=== PATIENT | female | born 1990 | race Caucasian/White ===

== ENCOUNTER 2019-09-23 12:24 | Emergency (ER) | payer OTHER, SELFPAY ==
[2019-09-23 12:34] VITALS: BP 136/80; PULSE 92; RESP 20; TEMP 36.8; O2SAT 98
--- NOTE | 2019-09-23 12:53 | ED.GENADULT ---
HPI - General Adult General Chief complaint: Upper Respiratory Infection Stated complaint: Sore throat/tongue has white spots Time Seen by Provider: 09/23/19 12:54 Source: patient and RN notes reviewed Mode of arrival: ambulatory Limitations: no limitations History of Present Illness HPI narrative: This is a 29 years old female presents to the office for an evaluation of sore throat for one week. Her children has thrush and her tested positive for strep. No treatment prior to arrival. Related Data Allergies Allergy/AdvReac Type Severity Reaction Status Date / Time Influenza Virus Vaccines Allergy Severe Verified 04/23/19 10:10 pneumococcal vaccine Allergy Unknown Verified 04/23/19 10:10 Review of Systems Review of Systems: Narrative: CONSTITUTIONAL: Denies fever or feeling ill. ENT: Reports sore throat and can't taste CARDIOVASCULAR: Denies chest pain RESPIRATORY: Denies dyspnea, cough GASTROINTESTINAL: Denies abdominal pain, nausea, vomiting, diarrhea. SKIN: Denies rash MUSCULOSKELETAL: Denies acute back pain NEUROLOGIC: Denies lightheaded PMFSH Comments At time of signature, I agree with nursing past medical, surgical, social and family history. There is no relevant family history pertinent to the presenting complaint. Exam Narrative: Exam Narrative: GENERAL: This is a well-nourished, well-developed patient, in no apparent distress. EYES: Sclera clear/white. Vision is grossly intact. EARS: External ears normal, auditory canals clear and without drainage, TMs normal without perforation. Hearing grossly intact. NOSE: External nose normal with no obvious nasal discharge, nares without redness, no rhinorrhea. THROAT: Mucous membranes moist, posterior pharynx clear, tongue noted thrush. NECK: Neck supple, non-tender without lymphadenopathy, masses or thyromegaly. CARDIOVASCULAR: Regular rate and rhythm without murmurs, gallops, or rubs. RESPIRATORY: Clear to auscultation. Breath sounds equal bilaterally. No wheezes, rales, or rhonchi. GASTROINTESTINAL: Abdomen soft, non-tender, nondistended. Bowel sounds are active. No hepato-splenomegaly, or palpable masses. No guarding. SKIN: warm, intact with no suspicious lesions or rash NEURO: awake, alert, and oriented to person, place and time. There were no obvious focal neurologic abnormalities. Steady gait Gin Coma Scale Eye Opening: Spontaneous 4 Gin Coma Scale Motor: Obeys Commands 6 [place] Coma Scale Verbal: Oriented 5 Course Vital Signs Vital signs: Vital Signs Temperature 98.2 F 09/23/19 12:34 Pulse Rate 92 09/23/19 12:34 Respiratory Rate 20 09/23/19 12:34 Blood Pressure 136/80 09/23/19 12:34 Pulse Oximetry 98 09/23/19 12:34 Temperature 98.2 F 09/23/19 12:34 Pulse Rate 92 09/23/19 12:34 Respiratory Rate 20 09/23/19 12:34 Blood Pressure 136/80 09/23/19 12:34 Pulse Oximetry 98 09/23/19 12:34 Medical Decision Making MDM Narrative Medical decision making narrative: Discharge instructions reviewed with patient, as well as provided in writing per nursing staff. The instructions also include specific and strict return/GO TO THE ER as well as f/u information. All questions have been answered, and the patient deny any further questions with discharge and discharge plan. Differential Diagnosis Differential Diagnosis: Upper respiratory cough syndrome, Pharyngitis,viral URI Vital Signs Vital Signs: Vital Signs Temperature 98.2 F 09/23/19 12:34 Pulse Rate 92 09/23/19 12:34 Respiratory Rate 20 09/23/19 12:34 Blood Pressure 136/80 09/23/19 12:34 Pulse Oximetry 98 09/23/19 12:34 Temperature 98.2 F 09/23/19 12:34 Pulse Rate 92 09/23/19 12:34 Respiratory Rate 20 09/23/19 12:34 Blood Pressure 136/80 09/23/19 12:34 Pulse Oximetry 98 09/23/19 12:34 Lab Data Lab results reviewed: Yes I reviewed the patient's lab results. Labs: Strep Screen Presumptive Negati
== END 2019-09-23 13:15 | disposition home or self-care (01) ==
PROVIDERS: Emergency Provider Nurse Practitioner; PCP Family Medicine
DX: B37.0 Candidal stomatitis (principal)
CPT/HCPCS: 87081; 87880; 99213; G0463

== ENCOUNTER 2020-02-26 18:52 | Emergency (ER) | payer OTHER, SELFPAY ==
--- NOTE | 2020-02-26 18:54 | ED.GENADULT ---
HPI - General Adult General Chief complaint: Dental/Oral Stated complaint: abcess tooth Time Seen by Provider: 02/26/20 19:15 Source: patient Mode of arrival: ambulatory Limitations: no limitations History of Present Illness HPI narrative: 22-year-old female patient presents to the [facility] with complaints of left lower dental pain for the past 3 days. Patient states she has had issues with this tooth before and has been told by her dentist that it needs to be removed. Patient is currently and is due in May and states that they are not willing to extract the tooth until after she gives . Patient has been taking Tylenol as well as doing a lidocaine wash for the pain. Patient states that his been painful increasingly and hurts to eat or drink at this time. Related Data Home Medications Medication Instructions Recorded Confirmed levalbuterol tartrate [Xopenex HFA] 2 inh INHALATION Q6H 02/26/20 02/26/20 ondansetron HCl [Zofran] 8 mg PO Q8H PRN 02/26/20 02/26/20 [id number] fum-folic ac-om3 1 pkg PO DAILY 02/26/20 02/26/20 [Daily ] Allergies Allergy/AdvReac Type Severity Reaction Status Date / Time Influenza Virus Vaccines Allergy Severe Confusion Verified 02/26/20 19:22 pneumococcal vaccine Allergy Unknown Confusion Verified 02/26/20 19:22 Review of Systems Review of Systems: Narrative: CONSTITUTIONAL: Denies fever, chills, or sweats. EYES: Denies visual changes, redness, or discharge. ENT: Denies rhinorrhea, congestion, sore throat, or otalgia. Positive left lower dental pain x3 days CARDIOVASCULAR: Denies chest pain, palpitations, or edema. RESPIRATORY: Denies cough or dyspnea. GASTROINTESTINAL: Denies abdominal pain, nausea, vomiting, or diarrhea. GENITOURINARY: Denies dysuria or hematuria. SKIN: Denies rash or itching. MUSCULOSKELETAL: Denies back pain, joint pain, or myalgia. NEUROLOGIC: Denies headache, numbness, or weakness. PSYCHIATRIC: Denies anxiety or depression. [facility] Past Medical History Medical History (Updated 02/26/20 @ 19:28 by KAREL Norton) Migraines Surgical History Surgical History (Updated 02/26/20 @ 19:28 by KAREL Norton) H/O adenoidectomy History of tonsillectomy Comments At the time of my signature I agree with nursing past medical history, surgical, social, and family history. There is no relevant family history pertinent to the presenting complaint. Exam Narrative: Exam Narrative: GENERAL: Well-appearing, well-nourished, and in no acute distress. HEAD: Normocephalic, atraumatic. EYES: PERRLA and EOMI. ENT: Nares clear, no rhinorrhea or epistaxis. Mucous membranes moist. The back molar on the lower left side does have surrounding erythema swelling and does appear to be broken and infected. No active discharge. No obvious abscesses palpated on to the left cheek. Patient tolerating secretions well and able to talk in clear complete sentences. NECK: Supple. No lymphadenopathy CHEST: Clear to auscultation. No respiratory distress. HEART: Regular rate and rhythm. No murmur heard. Normal peripheral pulses. ABDOMEN: Soft, nontender, nondistended, normal active bowel sounds. EXTREMITIES: Normal range of motion. No edema. SKIN: Warm, dry, no rash. NEURO: No focal deficits. Alert and oriented x3. Course Vital Signs Vital signs: Vital Signs Temperature 36.7 C 02/26/20 19:09 Pulse Rate 102 H 02/26/20 19:09 Respiratory Rate 16 02/26/20 19:09 Blood Pressure 119/52 L 02/26/20 19:09 Pulse Oximetry 99 02/26/20 19:09 Temperature 36.7 C 02/26/20 19:09 Pulse Rate 102 H 02/26/20 19:09 Respiratory Rate 16 02/26/20 19:09 Blood Pressure 119/52 L 02/26/20 19:09 Pulse Oximetry 99 02/26/20 19:09 Vital signs reviewed. Medical Decision Making Differential Diagnosis Differential Diagnosis: Differential diagnosis: Dental caries, periodontal disease, avulsed tooth, tooth infections, mandibular infection, Eliecer's ang
[2020-02-26 19:09] VITALS: BP 119/52; PULSE 102; RESP 16; TEMP 36.7; O2SAT 99
== END 2020-02-26 19:31 | disposition home or self-care (01) ==
PROVIDERS: Emergency Provider Nurse Practitioner Family; PCP Family Medicine
DX: K02.9 Dental caries, unspecified (principal); J45.909 Unspecified asthma, uncomplicated
CPT/HCPCS: 99213; G0463

== ENCOUNTER 2020-10-20 13:05 | Emergency (ER) | payer OTHER, SELFPAY ==
[2020-10-20 13:14] VITALS: BP 158/80; PULSE 98; RESP 20; TEMP 36.6; O2SAT 99
--- NOTE | 2020-10-20 13:28 | ED.URI ---
HPI - URI/Sore Throat General Chief Complaint: Upper Respiratory Infection Stated Complaint: cough,sneezing Time Seen by Provider: 10/20/20 13:28 Source: patient Mode of arrival: ambulatory Limitations: no limitations History of Present Illness HPI Narrative: 30-year-old female presents to the [facility] with 1 week of productive cough and congestion. Denies chest pain or shortness of breath. Denies fevers. No nausea vomiting or diarrhea. Has a history of bronchitis and is currently a smoker. Related Data Home Medications Medication Instructions Recorded Confirmed cyclobenzaprine 10 mg PO HS PRN 10/20/20 10/20/20 paroxetine HCl 10 mg PO QAM 10/20/20 10/20/20 Allergies Allergy/AdvReac Type Severity Reaction Status Date / Time Influenza Virus Vaccines Allergy Severe Confusion Verified 10/20/20 13:35 pneumococcal vaccine Allergy Unknown Confusion Verified 10/20/20 13:35 Review of Systems Review of Systems: Narrative: CONSTITUTIONAL: Denies fever, chills, or sweats. EYES: Denies visual changes, redness, or discharge. ENT: Reports rhinorrhea, congestion. Denies sore throat, or otalgia. CARDIOVASCULAR: Denies chest pain, palpitations, or edema. RESPIRATORY: Reports productive cough without dyspnea. GASTROINTESTINAL: Denies abdominal pain, nausea, vomiting, or diarrhea. MUSCULOSKELETAL: Denies back pain, joint pain, or myalgia. NEUROLOGIC: Denies headache, numbness, or weakness. PSYCHIATRIC: Denies anxiety or depression. All other systems reviewed are negative, except as documented in HPI. PMFSH Past Medical History Medical History (Updated 10/21/20 @ 00:01 by Monalisa Kingston) Migraines Surgical History Surgical History (Updated 02/26/20 @ 19:28 by KAREL Norton) H/O adenoidectomy History of tonsillectomy Social History Social History (Updated 10/21/20 @ 08:09 by Almita Coker) Smoking packs per day: 0.5 Smoking cigarettes per day: 10.0 Comments At the time of my signature, I reviewed and agree with the nursing past medical, surgical, social, and family history. There is no relevant family history pertinent to the patient complaint. Exam Narrative: Exam Narrative: GENERAL: This is a well-nourished, well-developed patient, in no apparent distress. Appears mildly ill HEAD: normocephalic, atraumatic. EYES: PERRL. Sclera clear/white. Vision is grossly intact. EARS: External ears normal, auditory canals clear and without drainage, TMs normal without perforation. Hearing grossly intact. NOSE: External nose normal with clear nasal discharge, nares without redness. THROAT: Mucous membranes moist, posterior pharynx clear. Postnasal drip NECK: Neck supple, non-tender without lymphadenopathy, masses or thyromegaly. CARDIOVASCULAR: Regular rate and rhythm without murmurs, gallops, or rubs. RESPIRATORY: Clear but diminished lower lobes to auscultation. Breath sounds equal bilaterally. No wheezes, rales, or rhonchi. GASTROINTESTINAL: Abdomen soft, non-tender, nondistended. Bowel sounds are active. No hepato-splenomegaly, or palpable masses. No guarding. NEURO: awake, alert, and oriented to person, place and time. There were no obvious focal neurologic abnormalities. EXTREMITIES: No joint tenderness, effusion, or edema noted. BACK: Nontender without deformity. Course Vital Signs Vital signs: Vital Signs Temperature 98 F 10/20/20 13:14 Pulse Rate 98 10/20/20 13:14 Respiratory Rate 20 10/20/20 13:14 Blood Pressure 158/80 H 10/20/20 13:14 Pulse Oximetry 99 10/20/20 13:14 Temperature 98 F 10/20/20 13:14 Pulse Rate 98 10/20/20 13:14 Respiratory Rate 20 10/20/20 13:14 Blood Pressure 158/80 H 10/20/20 13:14 Pulse Oximetry 99 10/20/20 13:14 Reviewed, blood pressure elevated, discussed with patient MDM - URI/Sore Throat Differential Diagnosis Differential diagnosis: Likely upper respiratory infection, otitis media, sinusitis, viral infection and bronchitis Critic
== END 2020-10-20 13:58 | disposition home or self-care (01) ==
PROVIDERS: Emergency Provider Nurse Practitioner; PCP Family Medicine
DX: J40 Bronchitis, not specified as acute or chronic (principal); F17.210 Nicotine dependence, cigarettes, uncomplicated
CPT/HCPCS: 99213; G0463

== ENCOUNTER 2021-03-27 16:25 | Emergency (ER) | payer OTHER, SELFPAY ==
--- NOTE | ~2021-03-27 | XR_ITS ---
EXAMINATION: XR chest 2V DATE: 03/27/2021 16:53 INDICATION: Cough and congestion TECHNIQUE: PA and lateral views of the chest are obtained. COMPARISON: None available FINDINGS: The lungs are free of acute opacities. There is no pleural effusion or pneumothorax. The ca rdiomediastinal silhouette is normal. The visualized bones and soft tissues are unremarkable. IMPRESSION: 1. No acute cardiopulmonary abnormality. Reviewed, dictated and finalized at location A.
--- NOTE | 2021-03-27 16:26 | ED.URI ---
HPI - URI/Sore Throat General Chief Complaint: Upper Respiratory Infection Stated Complaint: cough congestion Time Seen by Provider: 03/27/21 16:26 Source: patient and RN notes reviewed History of Present Illness HPI Narrative: Patient is a 31-year-old female who presents the urgent care with complaints of cough and congestion post Covid. Patient states that they have been out of quarantine, quarantine for 14 days, for 2 to 3 days now. Mother states that she has not had any recent fevers, nausea, vomiting or sore throat. States that she has been using multiple nhbw-voi-myumazk medications without any improvements. No other acute complaints. No acute distress noted. Patient aware of the plan of care. Some parts of this dictation were generated by voice recognition software and may contain typographical and/or grammatical inaccuracies. Related Data Home Medications Medication Instructions Recorded Confirmed buspirone See Rx Instructions .ROUTE .COMPLEX 03/27/21 03/27/21 citalopram 40 mg PO DAILY 03/27/21 03/27/21 norgestimate-ethinyl estradiol 28 tablet PO DAILY 03/27/21 03/27/21 [Sprintec (28)] Allergies Allergy/AdvReac Type Severity Reaction Status Date / Time No Known Allergies Allergy Verified 03/27/21 16:48 Review of Systems Review of Systems: CONSTITUTIONAL: Denies fever, chills, or sweats. EYES: Denies visual changes, redness, or discharge. ENT: Denies rhinorrhea, congestion, sore throat, or otalgia. CARDIOVASCULAR: Denies chest pain, palpitations, or edema. RESPIRATORY: Reports of chest congestion and cough GASTROINTESTINAL: Denies abdominal pain, nausea, vomiting, or diarrhea. GENITOURINARY: Denies dysuria or hematuria. SKIN: Denies rash or itching. MUSCULOSKELETAL: Denies back pain, joint pain, or myalgia. NEUROLOGIC: Denies headache, numbness, or weakness. All other systems reviewed are negative, except as documented in HPI. PMFSH Comments At the time of my signature, I reviewed and agree with the nursing past medical, surgical, social, and family history. There is no relevant family history pertinent to the patient complaint. Exam Narrative: GENERAL: This is a well-nourished, well-developed patient, in no apparent distress. HEAD: normocephalic, atraumatic. EYES: PERRL. Sclera clear/white. Vision is grossly intact. EARS: External ears normal, auditory canals clear and without drainage, TMs normal without perforation. Hearing grossly intact. NOSE: External nose normal with no obvious nasal discharge, nares without redness, no rhinorrhea. THROAT: Mucous membranes moist, posterior pharynx clear. Moderate postnasal drainage NECK: Neck supple, non-tender without lymphadenopathy CARDIOVASCULAR: Regular rate and rhythm without murmurs, gallops, or rubs. RESPIRATORY: Clear to auscultation. Diminished bibasilar SKIN: warm, intact with no suspicious lesions or rash, good texture and turgor. NEURO: awake, alert, and oriented to person, place and time. There were no obvious focal neurologic abnormalities. EXTREMITIES: No clubbing, cyanosis, or edema. Course Vital Signs Vital signs: Vital Signs Temperature 97.3 F L 03/27/21 16:34 Pulse Rate 99 03/27/21 16:34 Respiratory Rate 20 03/27/21 16:34 Blood Pressure 144/89 H 03/27/21 16:34 Pulse Oximetry 99 03/27/21 16:34 Temperature 97.3 F L 03/27/21 16:34 Pulse Rate 99 03/27/21 16:34 Respiratory Rate 20 03/27/21 16:34 Blood Pressure 144/89 H 03/27/21 16:34 Pulse Oximetry 99 03/27/21 16:34 Reviewed-patient is informed that they may have pre-hypertension or hypertension based on a blood pressure reading in the department. I recommend the patient call the primary care provider listed on their discharge instructions or a physician of their choice this week to arrange follow-up for further evaluation of possible pre-hypertension or hypertension. MDM - URI/Sore Throat MDM Narrative Medical decision making narrative: Reviewed x-ray re
[2021-03-27 16:34] VITALS: BP 144/89; PULSE 99; RESP 20; TEMP 36.3; O2SAT 99
== END 2021-03-27 17:17 | disposition home or self-care (01) ==
PROVIDERS: Emergency Provider Nurse Practitioner Family; PCP Family Medicine
DX: R05 Cough (principal)
CPT/HCPCS: 71046; 99213; G0463

== ENCOUNTER 2021-05-11 10:41 | Emergency (ER) | payer OTHER, SELFPAY ==
[2021-05-11 10:53] VITALS: BP 154/93; PULSE 83; RESP 16; TEMP 37.4; O2SAT 99
--- NOTE | 2021-05-11 11:18 | ED.URI ---
HPI - URI/Sore Throat General Chief Complaint: Upper Respiratory Infection Stated Complaint: lt ear pain,laura,cough Source: patient and RN notes reviewed Mode of arrival: ambulatory Limitations: no limitations History of Present Illness HPI Narrative: Sapphire is a 31-year-old female patient who ambulated into the [facility] accompanied by her [id number] and 2-year-old. Mother states for the last week she has had nasal congestion with clear drainage, occasional fever, feeling bad and increased use of her albuterol inhaler. Mother states her and 3 out of the 4 children had Covid at the beginning of April. Mother states she is been using Mucinex at home with no relief. Related Data Home Medications Medication Instructions Recorded Confirmed albuterol sulfate 2 inh INHALATION Q4-6M PRN 05/11/21 05/11/21 buspirone 15 mg PO TID 05/11/21 05/11/21 citalopram 40 mg PO DAILY 05/11/21 05/11/21 norgestimate-ethinyl estradiol 1 tablet PO DAILY 05/11/21 05/11/21 [Sprintec (28)] Allergies Allergy/AdvReac Type Severity Reaction Status Date / Time Influenza Virus Vaccines AdvReac Severe Confusion Verified 05/11/21 11:06 pneumococcal vaccine AdvReac Unknown Confusion Verified 05/11/21 11:06 Review of Systems Review of Systems: GENERAL: Denies fever, chills, or decreased activity. EYES: Denies any eye discharge or redness. ENT: Denies sore throat, ear pain, +congestion, + rhinorrhea. RESP: Denies any cough, wheezing, or difficulty breathing. CARDIOVASCULAR: Denies any rapid heart rate or cool extremities. ABDOMINAL: Denies any constipation, vomiting, diarrhea, or decreased food intake. : Denies any hematuria, foul smelling urine, or decreased urine frequency. SKIN: Denies any lesions, rashes, bruises. MUSCULOSKELETAL: Denies any pain or swelling. NEURO: Denies any lethargy, irritability, or seizures. PSYCH: Denies abnormal interaction with family and friends. All systems reviewed & are unremarkable except as noted in HPI and below PMFSH Past Medical History Medical History Migraines Surgical History Surgical History H/O adenoidectomy History of tonsillectomy Social History Social History Smoking packs per day: 0.5 Smoking cigarettes per day: 10.0 Exam Narrative: GENERAL: Well nourished, well developed, no acute distress. Well appearing, non-toxic. EYES: PERRL, EOMs normal, conjunctivae normal. ENT: Head normocephalic and atraumatic. Nasal membranes erythematous with clear nasal drainage. Bilateral tympanic membranes are bulging and dull without erythema. Posterior pharynx is erythemic with minimal edema and no exudate. Neck supple. No lymphadenopathy. Full ROM of neck. Mucous membranes moist. RESP: No sign of respiratory distress. Clear to auscultation bilaterally. MUSC/SKEL: Good strength, good range of movement. Moves all extremities equally. NEURO: Alert. Good coordination. SKIN: Warm, dry, no rash, normal cap refill. Skin turgor normal. PSYCH: Affect and mood appropriate. Course Vital Signs Vital signs: Vital Signs Temperature 37.4 C 05/11/21 10:53 Pulse Rate 83 05/11/21 10:53 Respiratory Rate 16 05/11/21 10:53 Blood Pressure 154/93 H 05/11/21 10:53 Pulse Oximetry 99 05/11/21 10:53 Temperature 37.4 C 05/11/21 10:53 Pulse Rate 83 05/11/21 10:53 Respiratory Rate 16 05/11/21 10:53 Blood Pressure 154/93 H 05/11/21 10:53 Pulse Oximetry 99 05/11/21 10:53 Reviewed. Pt has been instructed to follow up with her PCP regarding her elevated blood pressure today. MDM - URI/Sore Throat MDM Narrative Medical decision making narrative: Mother has clear nasal discharge erythematous nasal membranes and bulging TMs. Patient was instructed to use Claritin and Flonase daily. Patient was also given prednisone du
== END 2021-05-11 11:25 | disposition home or self-care (01) ==
PROVIDERS: Emergency Provider Nurse Practitioner Family; PCP Family Medicine
DX: J06.9 Acute upper respiratory infection, unspecified (principal); F17.210 Nicotine dependence, cigarettes, uncomplicated
CPT/HCPCS: 99213; G0463

== ENCOUNTER 2021-09-05 18:04 | Emergency (ER) | payer OTHER, SELFPAY ==
[2021-09-05 18:09] VITALS: BP 148/84; PULSE 102; RESP 20; TEMP 36.7; O2SAT 97
--- NOTE | 2021-09-05 18:51 | ED.URI ---
HPI - URI/Sore Throat General Chief Complaint: Upper Respiratory Infection Stated Complaint: Cough/Congestion Time Seen by Provider: 09/05/21 18:51 Source: patient and RN notes reviewed Mode of arrival: ambulatory Limitations: no limitations History of Present Illness HPI Narrative: 31-year-old female presented for complaint of shortness of breath, cough, and wheezing for about 9 days. Endorses history of asthma. She has been using her albuterol inhaler more often than normal. The shortness of breath and wheezing are associated with coughing and increased activity. She denies nausea, vomiting, diarrhea, fever or chills. She has been taking diet DayQuil, NyQuil, TheraFlu and alvy-tie-uavgroh medications with no relief in symptoms. smokes / ppd. covid 03/2021. elicited complaint: cough Related Data Home Medications Medication Instructions Recorded Confirmed buspirone See Rx Instructions .ROUTE .COMPLEX 03/27/21 09/05/21 citalopram 40 mg PO DAILY 03/27/21 09/05/21 norgestimate-ethinyl estradiol 28 tablet PO DAILY 03/27/21 09/05/21 [Sprintec (28)] Allergies Allergy/AdvReac Type Severity Reaction Status Date / Time influenza virus vaccine qs Allergy Fever Verified 09/05/21 18:29 [id number] (65 years up) [From Fluad Camera360 2020-(65y up)(PF)] lavender (Lavandula Allergy Hives Verified 09/05/21 18:29 angustifolia) vaccine adjuvant emulsion Allergy Fever Verified 09/05/21 18:29 [id number] [From Fluad Quad 2020-(65y up)(PF)] Review of Systems Review of Systems: CONSTITUTIONAL: Denies malaise, chills, sweats, fever EYES: Denies visual changes, redness, or discharge ENT: Reports rhinorrhea, congestion, sinus pain, otalgia, sore throat CARDIOVASCULAR: Denies chest pain, palpitations, edema RESPIRATORY: Reports cough, post nasal drainage, dyspnea GASTROINTESTINAL: Denies abdominal pain, nausea, vomiting, diarrhea SKIN: Denies rash or itching MUSCULOSKELETAL: Endorses myalgia NEUROLOGIC: Denies headache Exam Narrative: GENERAL: Ill-appearing, nontoxic no acute distress. HEAD: Normocephalic EYES: PERRLA, conjunctivae clear ENT: Mucous membranes moist. TM pearly lowe with dull light reflex bilaterally; no tragal tenderness. Oropharynx erythematous without lesions or exudate, no drooling, no hoarseness, no trismus, uvula midline. NECK: Supple. No lymphadenopathy CHEST: Lungs diminished with exp wheezing, No respiratory distress, speaks in full sentences. HEART: Regular rate and rhythm. No murmur heard. SKIN: Warm, dry, no rash. NEURO: Alert and oriented x3. PSYCH: Normal mood and affect Course Course Emergency Course: Patient is aware of diagnosis, understands and agrees to treatment plan. Anticipatory guidance given. Patient agrees to follow-up as directed and is aware of reasons to seek care at the emergency department. Portions of this record may have been created with voice recognition software Level of Care: [facility] Visit Vital Signs Vital signs: Vital Signs Temperature 98.1 F 09/05/21 18:09 Pulse Rate 102 H 09/05/21 18:09 Respiratory Rate 20 09/05/21 18:09 Blood Pressure 148/84 H 09/05/21 18:09 Pulse Oximetry 97 09/05/21 18:09 Temperature 98.1 F 09/05/21 18:09 Pulse Rate 102 H 09/05/21 18:09 Respiratory Rate 20 09/05/21 18:09 Blood Pressure 148/84 H 09/05/21 18:09 Pulse Oximetry 97 09/05/21 18:09 reviewed MDM - URI/Sore Throat Differential Diagnosis Differential diagnosis: Likely upper respiratory infection, sinusitis, viral infection, bronchitis and other (asthma exacerbation, pneumonia) Discharge Plan Discharge Clinical Impression: Asthma exacerbation Qualifiers: Asthma severity: unspecified severity Asthma persistence: unspecified Qualified Code(s): J45.901 - Unspecified asthma with (acute) exacerbation Patient Disposition: Home, Self-Care Condition: Stable Instructions: Antibiotic Form, Asthma (ED), Bronchospas
== END 2021-09-05 19:53 | disposition home or self-care (01) ==
PROVIDERS: Emergency Provider Nurse Practitioner Family
DX: J45.901 Unspecified asthma with (acute) exacerbation (principal); F17.200 Nicotine dependence, unspecified, uncomplicated; Z86.16 Personal history of COVID-19
CPT/HCPCS: 99213; G0463

== ENCOUNTER 2021-10-11 10:43 | Emergency (ER) | payer OTHER, SELFPAY ==
--- NOTE | 2021-10-11 10:45 | ED.URI ---
HPI - URI/Sore Throat General Chief Complaint: Upper Respiratory Infection Stated Complaint: congestion cough Time Seen by Provider: 10/11/21 10:45 Source: patient and RN notes reviewed History of Present Illness HPI Narrative: Patient is a 31-year-old female who presents to the urgent care with her 4 children with complaints of sinus pressure, sinus headache, nasal congestion and cough. Patient states she has been taking Mucinex and Tylenol. Denies of any fevers. Denies any wheezing or shortness of breath. Patient states that she does typically have a cough and patient has been smoking for the last 10 years. However, this cough has been more persistent and worsened. No other acute complaints. No acute distress noted. Patient aware of the plan of care. Some parts of this dictation were generated by voice recognition software and may contain typographical and/or grammatical inaccuracies. Related Data Home Medications Medication Instructions Recorded Confirmed buspirone 15 mg PO TID 05/11/21 10/11/21 citalopram 40 mg PO DAILY 05/11/21 10/11/21 norgestimate-ethinyl estradiol 1 tablet PO DAILY 10/11/21 10/11/21 [Zo] Allergies Allergy/AdvReac Type Severity Reaction Status Date / Time Influenza Virus Vaccines AdvReac Severe Confusion Verified 10/11/21 11:25 pneumococcal vaccine AdvReac Unknown Confusion Verified 10/11/21 11:25 Review of Systems Review of Systems: CONSTITUTIONAL: Denies fever, chills, or sweats. EYES: Denies visual changes, redness, or discharge. ENT: Reports of nasal congestion and postnasal drainage with sinus pressure CARDIOVASCULAR: Denies chest pain, palpitations, or edema. RESPIRATORY: Reports of cough without dyspnea or wheezing GASTROINTESTINAL: Denies abdominal pain, nausea, vomiting, or diarrhea. GENITOURINARY: Denies dysuria or hematuria. SKIN: Denies rash or itching. MUSCULOSKELETAL: Denies back pain, joint pain, or myalgia. NEUROLOGIC: Reports headaches All other systems reviewed are negative, except as documented in HPI. [facility] Past Medical History Medical History Migraines Surgical History Surgical History H/O adenoidectomy History of tonsillectomy Social History Social History Smoking packs per day: 0.5 Smoking cigarettes per day: 10.0 Comments At the time of my signature, I reviewed and agree with the nursing past medical, surgical, social, and family history. There is no relevant family history pertinent to the patient complaint. Exam Narrative: GENERAL: This is a well-nourished, well-developed patient, in no apparent distress. HEAD: normocephalic, atraumatic. EYES: PERRL. Sclera clear/white. Vision is grossly intact. EARS: External ears normal, auditory canals clear and without drainage, TMs normal without perforation. Hearing grossly intact. NOSE: External nose normal with no obvious nasal discharge, nares without redness, clear rhinorrhea. THROAT: Mucous membranes moist, mild erythema noted posterior oropharynx with moderate postnasal drainage NECK: Neck supple CARDIOVASCULAR: Regular rate and rhythm without murmurs, gallops, or rubs. RESPIRATORY: Crackles throughout. Breath sounds equal bilaterally. No wheezes, rales, or rhonchi. Notable dry cough on exam SKIN: warm, intact with no suspicious lesions or rash, good texture and turgor. NEURO: awake, alert, and oriented to person, place and time. There were no obvious focal neurologic abnormalities. EXTREMITIES: No clubbing, cyanosis, or edema. Course Course Level of Care: Express Care Visit Vital Signs Vital signs: Vital Signs Temperature 98 F 10/11/21 10:57 Pulse Rate 108 H 10/11/21 10:57 Respiratory Rate 16 10/11/21 10:57 Blood Pressure 143/84 H 10/11/21 10:57 Pulse Oximetry 98 10/11/21 10:57 Temperature 98 F 10/11/21 10:57
[2021-10-11 10:57] VITALS: BP 143/84; PULSE 108; RESP 16; TEMP 36.6; O2SAT 98
== END 2021-10-11 11:45 | disposition home or self-care (01) ==
PROVIDERS: Emergency Provider Nurse Practitioner Family; PCP Family Medicine
DX: J40 Bronchitis, not specified as acute or chronic (principal); Z20.828 Contact with and (suspected) exposure to other viral communicable diseases; F17.210 Nicotine dependence, cigarettes, uncomplicated
CPT/HCPCS: 99213; G0463

== ENCOUNTER 2022-02-10 13:26 | Outpatient (CLI) | payer OTHER, SELFPAY | END 2022-02-10 13:27 | disposition home or self-care (01) | LOC: ANHBWCAUD 13:26 | PROVIDERS: PCP Family Medicine | DX: H91.92 Unspecified hearing loss, left ear (principal) | CPT/HCPCS: 92557; 92567 ==

== ENCOUNTER 2022-10-11 12:24 | Emergency (ER) | payer OTHER, SELFPAY ==
[2022-10-11 12:44] VITALS: BP 149/86; PULSE 80; RESP 20; TEMP 36.1; O2SAT 100
--- NOTE | 2022-10-11 13:16 | ED.GENADULT ---
HPI - General Adult General Chief complaint: Upper Respiratory Infection Stated complaint: Congestion/Cough Source: patient Mode of arrival: ambulatory Limitations: no limitations History of Present Illness HPI narrative: PATIENT PRESENTS FOR EVALUATION OF SICK SYMPTOMS FOR LAST 4 WEEKS. SYMPTOMS INCLUDE MUFFLED HEARING, POSTNASAL DRAINAGE, MILD SORE THROAT AND NASAL CONGESTION. NO FEVER, CHILLS, NAUSEA, VOMITING, DIARRHEA. SHE HAS 4 CHILDREN HERE BEING EVALUATED FOR SIMILAR SYMPTOMS. SHE TRIED TYLENOL SINUS MEDICATION AND A NASAL SPRAY FOR HER SYMPTOMS. NO ADDITIONAL COMPLAINTS OR CONCERNS. Related Data Home Medications Medication Instructions Recorded Confirmed citalopram 40 mg tablet 40 mg PO DAILY 03/27/21 10/11/22 buspirone 15 mg tablet 15 mg PO TID 05/11/21 10/11/22 norgestimate 0.25 mg-ethinyl 1 tablet PO DAILY 10/11/21 10/11/22 estradiol 35 mcg tablet (Zo) Allergies Allergy/AdvReac Type Severity Reaction Status Date / Time influenza virus vaccine qs Allergy Fever Verified 10/11/22 12:27 [id number] (65 years up) [From Fluad M[employer] technologies (65y up)(PF)] lavender (Lavandula Allergy Hives Verified 10/11/22 12:27 angustifolia) vaccine adjuvant emulsion Allergy Fever Verified 10/11/22 12:27 MF59C.1 [From Fluad [employer] (65y up)(PF)] Influenza Virus Vaccines AdvReac Severe Confusion Verified 10/11/22 12:27 pneumococcal vaccine AdvReac Unknown Confusion Verified 10/11/22 12:27 Review of Systems Review of Systems: CONSTITUTIONAL: DENIES FEVER, CHILLS, OR SWEATS. EYES: DENIES VISUAL CHANGES, REDNESS, OR DISCHARGE. ENT: REPORTS NASAL CONGESTION, POSTNASAL DRAINAGE, MUFFLED HEARING AND MILD SORE THROAT. CARDIOVASCULAR: DENIES CHEST PAIN, PALPITATIONS, OR EDEMA. RESPIRATORY: DENIES COUGH OR DYSPNEA. GASTROINTESTINAL: DENIES ABDOMINAL PAIN, NAUSEA, VOMITING, OR DIARRHEA. GENITOURINARY: DENIES DYSURIA OR HEMATURIA. SKIN: DENIES RASH OR ITCHING. MUSCULOSKELETAL: DENIES BACK PAIN, JOINT PAIN, OR MYALGIA. NEUROLOGIC: DENIES HEADACHE, NUMBNESS, DIZZINESS, OR WEAKNESS. PSYCHIATRIC: DENIES ANXIETY OR DEPRESSION. REPLACED BY [facility] Past Medical History Medical History Anxiety Migraines Surgical History Surgical History (Updated 10/11/22 @ 13:18 by Jonn Gomes [facility], ) H/O adenoidectomy History of History of tonsillectomy Family History Family History Mother Family history non-contributory Social History Social History Smoking packs per day: 0.5 Smoking cigarettes per day: 10.0 Substance use: never Living arrangements: with family Gender identity (if verbalized by the patient): Female Sexual Orientation (if Verbalized by the Patient): Straight or Heterosexual Spiritual care concerns: No Exam Narrative: GENERAL: WELL-APPEARING, WELL-NOURISHED, AND IN NO ACUTE DISTRESS. HEAD: NORMOCEPHALIC, ATRAUMATIC. EYES: PERRLA AND EOMI. ENT: NARES CLEAR, NO RHINORRHEA OR EPISTAXIS. MUCOUS MEMBRANES MOIST. OROPHARYNX WITHOUT TONSILLAR HYPERTROPHY EXUDATE OR OTHER LESIONS. BILATERAL TMS PEARLY LANE NONBULGING NECK: SUPPLE. NO ADENOPATHY OR MASSES. NO CAROTID BRUITS OR JVD CHEST: CLEAR TO AUSCULTATION. NO RESPIRATORY DISTRESS. NO WHEEZES RALES OR RHONCHI HEART: REGULAR RATE AND RHYTHM. NO MURMUR HEARD. NORMAL PERIPHERAL PULSES. ABDOMEN: SOFT, NONTENDER, NONDISTENDED, NORMAL ACTIVE BOWEL SOUNDS. EXTREMITIES: NORMAL RANGE OF MOTION. NO EDEMA. SKIN: WARM, DRY, NO RASH. NEURO: NO FOCAL DEFICITS. ALERT AND ORIENTED X3. PSYCH: NORMAL MOOD AND AFFECT. Course Course Emergency Course: THIS IS A 32-YEAR-OLD FEMALE WHO PRESENTED FOR EVALUATION OF SICK SYMPTOMS. RAPID STREP POSITIVE. WILL TREAT WITH PENICILLIN. INCREASE HYDRATION. [id number] AGENTS FOR SYMPTOM MANAGEMENT. FOLLOW
== END 2022-10-11 13:20 | disposition home or self-care (01) ==
PROVIDERS: Emergency Provider Nurse Practitioner
DX: J02.0 Streptococcal pharyngitis (principal); F17.219 Nicotine dependence, cigarettes, with unspecified nicotine-induced disorders; F41.9 Anxiety disorder, unspecified
CPT/HCPCS: 87880; 99213; G0463

== ENCOUNTER 2023-03-07 15:02 | Emergency (ER) | payer OTHER, SELFPAY ==
[2023-03-07 15:08] VITALS: BP 143/82; PULSE 84; RESP 20; TEMP 36.7; O2SAT 100
--- NOTE | 2023-03-07 16:00 | ED.GENADULT ---
HPI - General Adult General Chief complaint: Upper Respiratory Infection Stated complaint: cough/drainage/eyes Source: patient Mode of arrival: ambulatory Limitations: no limitations History of Present Illness HPI narrative: Patient presents for evaluation of sick symptoms for last 2 weeks. Symptoms include cough, hoarse voice, sinus congestion and drainage. No fever, chills, nausea, vomiting, shortness of breath or sore throat per se. She tried taking Tylenol Sinus for her symptoms. She smokes 1 pack per day. She has an underlying history of asthma but has not required an increase of using her albuterol inhaler. Surgical history positive for tonsillectomy and adenoidectomy. Her 4 children are being seen here for similar symptoms. Related Data Home Medications Medication Instructions Recorded Confirmed citalopram 40 mg tablet 40 mg PO DAILY 03/27/21 10/11/22 buspirone 15 mg tablet 15 mg PO TID 05/11/21 10/11/22 norgestimate 0.25 mg-ethinyl 1 tablet PO DAILY 10/11/21 10/11/22 estradiol 35 mcg tablet (Zo) bupropion HCl 150 mg 24 hr tablet, mg PO 03/07/23 extended release norgestimate 0.25 mg-ethinyl tablet 03/07/23 estradiol 35 mcg tablet (Zo) trazodone 50 mg tablet mg 03/07/23 Allergies Allergy/AdvReac Type Severity Reaction Status Date / Time influenza virus vaccine qs Allergy Fever Verified 10/11/22 12:27 [id number] (65 years up) [From Fluad Quad 2020-(65y up)(PF)] lavender (Lavandula Allergy Hives Verified 10/11/22 12:27 angustifolia) vaccine adjuvant emulsion Allergy Fever Verified 10/11/22 12:27 MF59C.1 [From Fluad Quad 2020-(65y up)(PF)] Influenza Virus Vaccines AdvReac Severe Confusion Verified 10/11/22 12:27 pneumococcal vaccine AdvReac Unknown Confusion Verified 10/11/22 12:27 Review of Systems Review of Systems: CONSTITUTIONAL: Denies fever, chills, or sweats. EYES: Denies visual changes, redness, or discharge. ENT: Reports hoarse voice, sinus congestion/drainage. Denies sore throat and otalgia CARDIOVASCULAR: Denies chest pain, palpitations, or edema. RESPIRATORY: Reports cough. Denies wheezing or SOB GASTROINTESTINAL: Denies abdominal pain, nausea, vomiting, or diarrhea. GENITOURINARY: Denies dysuria or hematuria. SKIN: Denies rash or itching. MUSCULOSKELETAL: Denies back pain, joint pain, or myalgia. NEUROLOGIC: Denies headache, numbness, dizziness, or weakness. PSYCHIATRIC: Denies anxiety or depression. [facility] Past Medical History Medical History Anxiety Migraines Surgical History Surgical History H/O adenoidectomy History of History of tonsillectomy Family History Family History Mother Family history non-contributory Social History Social History Smoking packs per day: 1 Smoking cigarettes per day: 20.0 Smoking status: Current some day smoker Substance use: never Living arrangements: with family Gender identity (if verbalized by the patient): Female Sexual Orientation (if Verbalized by the Patient): Straight or Heterosexual Spiritual care concerns: No Exam Narrative: GENERAL: Well-appearing, well-nourished, and in no acute distress. HEAD: Normocephalic, atraumatic. EYES: PERRLA and EOMI. ENT: Nares clear, no rhinorrhea or epistaxis. Mucous membranes moist. Oropharynx without tonsillar hypertrophy exudate or other lesions. Bilateral TMs pearly lowe nonbulging NECK: Supple. No adenopathy or masses. No carotid bruits or JVD CHEST: Clear to auscultation. No respiratory distress. No wheezes rales or rhonchi HEART: Regular rate and rhythm. No murmur heard. Normal peripheral pulses. ABDOMEN: Soft, nontender, nondistended, normal active bowel sounds. EXTR
== END 2023-03-07 16:21 | disposition home or self-care (01) ==
PROVIDERS: Emergency Provider Nurse Practitioner
DX: B34.9 Viral infection, unspecified (principal); J45.909 Unspecified asthma, uncomplicated; F17.210 Nicotine dependence, cigarettes, uncomplicated; F41.9 Anxiety disorder, unspecified
CPT/HCPCS: 99211; G0463

== ENCOUNTER 2023-04-05 11:01 | Emergency (ER) | payer OTHER, SELFPAY ==
--- NOTE | 2023-04-05 11:04 | ED.URI ---
HPI - URI/Sore Throat General Chief Complaint: Upper Respiratory Infection Stated Complaint: cough/throat/nausea Time Seen by Provider: 04/05/23 11:04 Source: patient, RN notes reviewed and old records reviewed Mode of arrival: ambulatory Limitations: no limitations History of Present Illness HPI Narrative: 33-year-old female presents with 3 of her children with complaints of a cough for 3 weeks, sore throat, nausea, sinus congestion and decreased hearing. Has taken Tylenol Sinus, DayQuil, NyQuil, sinus spray. Patient smokes half a pack a day Related Data Home Medications Medication Instructions Recorded Confirmed citalopram 40 mg tablet 40 mg PO DAILY 03/27/21 10/11/22 buspirone 15 mg tablet 15 mg PO TID 05/11/21 10/11/22 norgestimate 0.25 mg-ethinyl 1 tablet PO DAILY 10/11/21 10/11/22 estradiol 35 mcg tablet (Zo) bupropion HCl 150 mg 24 hr tablet, mg PO 03/07/23 extended release norgestimate 0.25 mg-ethinyl tablet 03/07/23 estradiol 35 mcg tablet (Zo) trazodone 50 mg tablet mg 03/07/23 Allergies Allergy/AdvReac Type Severity Reaction Status Date / Time influenza virus vaccine qs Allergy Fever Verified 10/11/22 12:27 [id number] (65 years up) [From Fluad Quad 2020-(65y up)(PF)] lavender (Lavandula Allergy Hives Verified 10/11/22 12:27 angustifolia) vaccine adjuvant emulsion Allergy Fever Verified 10/11/22 12:27 MF59C.1 [From Fluad Quad (65y up)(PF)] Influenza Virus Vaccines AdvReac Severe Confusion Verified 10/11/22 12:27 pneumococcal vaccine AdvReac Unknown Confusion Verified 10/11/22 12:27 Review of Systems Review of Systems: All systems reviewed & are unremarkable except as noted in HPI and below Constitutional: Constitutional: Reports no additional constitutional complaints Eyes: Eyes: Reports no additional eye complaints ENT: Reports as per HPI Cardiovascular: Cardiovascular: Reports no additional cardiovascular complaints, Denies chest pain and Denies dyspnea Respiratory: Respiratory: Reports as per HPI, Reports chest congestion, Reports cough and Denies dyspnea Gastrointestinal: Gastrointestinal: Reports no additional gastrointestinal complaints, Denies abdominal pain, Denies nausea and Denies vomiting Musculoskeletal: Musculoskeletal: Reports no additional musculoskeletal complaints Integumentary/Breasts: Skin/Breast: Reports system reviewed and no additional complaints, except as docu Neurologic: Reports system reviewed and no additional complaints, except as documented Psychiatric: Psychiatric: Reports no additional psychiatric complaints Allergic/Immunologic: Allergic/Immunologic: Reports no additional allergic/immunologic complaints PMFSH Past Medical History Medical History Anxiety Migraines Surgical History Surgical History H/O adenoidectomy History of History of tonsillectomy Family History Family History Mother Family history non-contributory Social History Social History Smoking packs per day: 1 Smoking cigarettes per day: 20.0 Smoking status: Current some day smoker Substance use: never Living arrangements: with family Gender identity (if verbalized by the patient): Female Sexual Orientation (if Verbalized by the Patient): Straight or Heterosexual Spiritual care concerns: No Comments At the time of my signature, I reviewed and agree with the nursing past medical, surgical, social, and family history. There is no relevant family history pertinent to the patient complaint. Exam Const: General: cooperative, healthy appearing, comfortable, no acute distress, well developed, alert and well nourished Nutritional Appearance: well nourished and obese Orientation/consciousness:
[2023-04-05 11:10] VITALS: BP 132/87; PULSE 116; RESP 20; TEMP 37; O2SAT 100
== END 2023-04-05 12:29 | disposition home or self-care (01) ==
PROVIDERS: Emergency Provider Nurse Practitioner; PCP Physician Assistant
DX: J06.9 Acute upper respiratory infection, unspecified (principal); J40 Bronchitis, not specified as acute or chronic; F17.210 Nicotine dependence, cigarettes, uncomplicated
CPT/HCPCS: 99213; G0463

== ENCOUNTER 2023-10-04 09:00 | Emergency (ER) | payer OTHER, SELFPAY ==
--- NOTE | 2023-10-04 09:15 | ED.URI ---
HPI - URI/Sore Throat General Chief Complaint: Upper Respiratory Infection Stated Complaint: Congestion/Headache/Rash Time Seen by Provider: 10/04/23 09:19 Source: patient and RN notes reviewed Mode of arrival: ambulatory Limitations: no limitations History of Present Illness HPI Narrative: 33 y/o female presented for 2 complaints. Reports nasal congestion and rash. Reports forehead pressure. Taking cetirizine without any relief. Reports itching red rash to groin and between buttocks for several months. States it bleeds and skin flakes. Had taken medication from pcp for the rash, it improved briefly but has returned and is worse per pt. Pt reports heart attack 07/2023, maker, not taking plavix at this time. smokes pd MD elicited complaint: cough Related Data Home Medications Medication Instructions Recorded Confirmed aspirin 81 mg chewable tablet 81 mg PO DAILY 10/04/23 10/04/23 atorvastatin 40 mg tablet 40 mg PO HS 10/04/23 10/04/23 metoprolol succinate 25 mg mg PO 10/04/23 tablet,extended release 24 hr Allergies Allergy/AdvReac Type Severity Reaction Status Date / Time influenza virus vaccine qs Allergy Fever Verified 10/11/22 12:27 [id number] (65 years up) [From Fluad Quad 2020-(65y up)(PF)] lavender (Lavandula Allergy Hives Verified 10/11/22 12:27 angustifolia) vaccine adjuvant emulsion Allergy Fever Verified 10/11/22 12:27 MF59C.1 [From Fluad Quad 2020-(65y up)(PF)] Influenza Virus Vaccines AdvReac Severe Confusion Verified 10/11/22 12:27 pneumococcal vaccine AdvReac Unknown Confusion Verified 10/11/22 12:27 Review of Systems Review of Systems: CONSTITUTIONAL: Denies malaise, chills, sweats, fever EYES: Denies visual changes, redness, or discharge ENT: Reports rhinorrhea, congestion, sinus pain, denies otalgia, sore throat CARDIOVASCULAR: Denies chest pain, palpitations, edema RESPIRATORY: Reports post nasal drainage. Denies dyspnea GASTROINTESTINAL: Denies abdominal pain, nausea, vomiting, diarrhea SKIN: reports rash, itching MUSCULOSKELETAL: Denies myalgia NEUROLOGIC: Reports headache PMFSH Past Medical History Medical History (Updated 10/04/23 @ 10:04 by Shari Maradiaga APRN) Anxiety Migraines Myocardial infarction Surgical History Surgical History H/O adenoidectomy History of History of tonsillectomy Family History Family History Mother Family history non-contributory Social History Social History Smoking packs per day: 1 Smoking cigarettes per day: 20.0 Smoking status: Current some day smoker Substance use: never Living arrangements: with family Gender identity (if verbalized by the patient): Female Sexual Orientation (if Verbalized by the Patient): Straight or Heterosexual Spiritual care concerns: No Exam Narrative: GENERAL: well-appearing EYES: PERRLA, conjunctivae clear ENT: Mucous membranes moist. TM pearly lowe with dull light reflex bilaterally; no tragal tenderness. Oropharynx not erythematous without lesions or exudate, no drooling, no hoarseness, no trismus, uvula midline. No tripod positioning, muffled voice, soft palate or pharyngeal wall bulging NECK: Supple. No lymphadenopathy CHEST: Clear to auscultation, breath sounds equal. No wheezing, rhonchi, rales, or stridor. No respiratory distress, speaks in full sentences. HEART: Regular rate and rhythm. No murmur heard. SKIN: Warm, dry Bilateral groin with mild erythematous linear rash c/w fungal; dry cracked skin, no active drainage. Approx 6cm length. NEURO: Alert and oriented x3. PSYCH: Normal mood and affect Course Course Emergency Course: Patient is aware of diagnosis, understands and agrees to treatment plan. Anticipatory guidance given. Patient agrees to fol
[2023-10-04 09:17] VITALS: BP 131/74; PULSE 73; RESP 16; TEMP 36.8; O2SAT 99
== END 2023-10-04 09:50 | disposition home or self-care (01) ==
PROVIDERS: Emergency Provider Nurse Practitioner Family
DX: J32.9 Chronic sinusitis, unspecified (principal); B37.2 Candidiasis of skin and nail; F17.210 Nicotine dependence, cigarettes, uncomplicated; I25.2 Old myocardial infarction; Z79.82 Long term (current) use of aspirin
CPT/HCPCS: 99213; G0463

== ENCOUNTER 2024-02-28 16:36 | Emergency (ER) | payer OTHER, SELFPAY ==
[2024-02-28 16:44] VITALS: BP 114/72; PULSE 87; RESP 20; TEMP 36.8; O2SAT 100
--- NOTE | 2024-02-28 17:10 | ED.URI ---
HPI - URI/Sore Throat General Chief Complaint: Upper Respiratory Infection Stated Complaint: Congestion/Headache Time Seen by Provider: 02/28/24 17:00 Source: patient Mode of arrival: ambulatory Limitations: no limitations History of Present Illness HPI Narrative: 34-year-old female presents with complaint of nasal congestion, sinus pressure, postnasal drainage for 3 weeks. Has been taking [id number] Tylenol cold and sinus with no relief of symptoms. Afebrile. All systems reviewed and negative except as noted above. Related Data Home Medications Medication Instructions Recorded Confirmed aspirin 81 mg chewable tablet 81 mg PO DAILY 10/04/23 02/28/24 atorvastatin 40 mg tablet 40 mg PO HS 10/04/23 02/28/24 metoprolol succinate 25 mg 25 mg PO DAILY 10/04/23 02/28/24 tablet,extended release 24 hr albuterol sulfate 90 mcg/actuation inhalation 02/28/24 02/28/24 aerosol inhaler clopidogrel 75 mg tablet 75 mg PO DAILY 02/28/24 02/28/24 rosuvastatin 20 mg tablet 20 mg PO DAILY 02/28/24 02/28/24 Allergies Allergy/AdvReac Type Severity Reaction Status Date / Time influenza virus vaccine qs Allergy Fever Verified 02/28/24 17:06 [id number] (65 years up) [From Fluad Quad 2020-(65y up)(PF)] lavender (Lavandula Allergy Hives Verified 02/28/24 17:06 angustifolia) vaccine adjuvant emulsion Allergy Fever Verified 02/28/24 17:06 MF59C.1 [From Fluad Quad 2020-(65y up)(PF)] Influenza Virus Vaccines AdvReac Severe Confusion Verified 02/28/24 17:06 pneumococcal vaccine AdvReac Unknown Confusion Verified 02/28/24 17:06 Review of Systems Review of Systems: CONSTITUTIONAL: Denies fever, chills, or sweats. EYES: Denies visual changes, redness, or discharge. ENT: Reports rhinorrhea, congestion, sinus pressure. Denies sore throat, or otalgia. CARDIOVASCULAR: Denies chest pain, palpitations, or edema. RESPIRATORY: Denies cough or dyspnea. GASTROINTESTINAL: Denies abdominal pain, nausea, vomiting, or diarrhea. GENITOURINARY: Denies dysuria or hematuria. SKIN: Denies rash or itching. MUSCULOSKELETAL: Denies back pain, joint pain, or myalgia. NEUROLOGIC: Denies headache, numbness, or weakness. PSYCHIATRIC: Denies anxiety or depression. All other systems reviewed are negative, except as documented in HPI. [facility] Past Medical History Medical History (Updated 02/28/24 @ 17:11 by Shirley Sanchez NP) Anxiety Migraines Myocardial infarction Surgical History Surgical History H/O adenoidectomy History of History of tonsillectomy Family History Family History Mother Family history non-contributory Social History Social History Smoking packs per day: 1 Smoking cigarettes per day: 20.0 Smoking status: Current some day smoker Substance use: never Living arrangements: with family Gender identity (if verbalized by the patient): Female Sexual Orientation (if Verbalized by the Patient): Straight or Heterosexual Spiritual care concerns: No Comments At time of signature, agree with nursing past medical, surgical, social and family history. There is no relevant family history pertinent to the presenting complaint. Exam Narrative: GENERAL: This is a well-nourished, well-developed patient, in no apparent distress. HEAD: normocephalic, atraumatic. EYES: PERRL. Sclera clear/white. Vision is grossly intact. EARS: External ears normal, auditory canals clear and without drainage, TMs normal without perforation. Hearing grossly intact. NOSE: External nose normal with congestion, really nasal drainage, ethmoid and maxillary sinus tenderness bilaterally THROAT: Mucous membranes moist, postnasal drainage NECK: Neck supple, non-tender without lymphadenopathy, masses or thyromegaly. CARDIOVASCULAR: Regular rat
== END 2024-02-28 17:30 | disposition home or self-care (01) ==
PROVIDERS: Emergency Provider Nurse Practitioner Family
DX: J01.90 Acute sinusitis, unspecified (principal); F17.210 Nicotine dependence, cigarettes, uncomplicated; I25.2 Old myocardial infarction; Z79.82 Long term (current) use of aspirin
CPT/HCPCS: 99213; G0463

== ENCOUNTER 2024-03-26 12:01 | Emergency (ER) | payer OTHER, SELFPAY ==
[2024-03-26 12:20] VITALS: BP 113/61; PULSE 70; RESP 16; TEMP 36.8; O2SAT 99
--- NOTE | 2024-03-26 12:38 | ED.URI ---
HPI - URI/Sore Throat General Chief Complaint: Upper Respiratory Infection Stated Complaint: cough,stuffy,head hurts History of Present Illness HPI Narrative: Patient presents with cough nasal congestion and bilateral ear pain. Patient states her symptoms have been going on for the past 3 weeks. Patient denies any fever or body aches states she takes Zyrtec daily for her symptoms and uses her inhalers as prescribed for her asthma. No shortness of breath and no chest pain. Related Data Home Medications Medication Instructions Recorded Confirmed aspirin 81 mg chewable tablet 81 mg PO DAILY 10/04/23 02/28/24 metoprolol succinate 25 mg 25 mg PO DAILY 10/04/23 02/28/24 tablet,extended release 24 hr albuterol sulfate 90 mcg/actuation inhalation 02/28/24 02/28/24 aerosol inhaler clopidogrel 75 mg tablet 75 mg PO DAILY 02/28/24 02/28/24 rosuvastatin 20 mg tablet 20 mg PO DAILY 02/28/24 02/28/24 sennosides 8.6 mg tablet (senna) mg 03/26/24 03/26/24 Allergies Allergy/AdvReac Type Severity Reaction Status Date / Time influenza virus vaccine qs Allergy Fever Verified 03/26/24 12:16 [id number] (65 years up) [From Spare to Sharead 1001 Menus 2020-(65y up)(PF)] lavender (Lavandula Allergy Hives Verified 03/26/24 12:16 angustifolia) vaccine adjuvant emulsion Allergy Fever Verified 03/26/24 12:16 MF59C.1 [From Fluad 1001 Menus 2020-(65y up)(PF)] Influenza Virus Vaccines AdvReac Severe Confusion Verified 03/26/24 12:16 pneumococcal vaccine AdvReac Unknown Confusion Verified 03/26/24 12:16 Review of Systems Review of Systems: CONSTITUTIONAL: Denies chills, or sweats. Reports fever and generalized body aches EYES: Denies visual changes, redness, or discharge. ENT: Denies otalgia. Reports nasal congestion runny nose and sore throat CARDIOVASCULAR: Denies chest pain, palpitations, or edema. RESPIRATORY: Denies dyspnea. Reports occasional cough GASTROINTESTINAL: Denies abdominal pain, nausea, vomiting, or diarrhea. GENITOURINARY: Denies dysuria or hematuria. SKIN: Denies rash or itching. MUSCULOSKELETAL: Denies back pain, joint pain, or myalgia. Reports generalized body aches NEUROLOGIC: Denies headache, numbness, or weakness. PSYCHIATRIC: Denies anxiety or depression. [facility] Past Medical History Medical History (Updated 03/26/24 @ 12:42 by KAREL Cameron) Anxiety Migraines Myocardial infarction Surgical History Surgical History H/O adenoidectomy History of History of tonsillectomy Family History Family History Mother Family history non-contributory Social History Social History Smoking packs per day: 1 Smoking cigarettes per day: 20.0 Smoking status: Current some day smoker Substance use: never Living arrangements: with family Gender identity (if verbalized by the patient): Female Sexual Orientation (if Verbalized by the Patient): Straight or Heterosexual Spiritual care concerns: No Comments At time of signature, agree with nursing past medical, surgical, social and family history. There is no relevant family history pertinent to the presenting complaint Exam Narrative: The patient is a well-developed, well-nourished in no acute distress. SKIN: Skin is warm and dry without erythema, swelling or exudate. There is good turgor. No tenting. HEAD: Atraumatic. Normocephalic. No temporal or scalp tenderness. EYES: Moist and bright. Sclera and conjunctivae normal. No discharge. PERRLA. Extraocular motions intact. Gross visual acuity intact. EARS: Pinna is normal shape and contour. Clear external auditory canals. Bilateral TM bulging moderate erythema to canal no suppuration. Bilateral cerumen noted no gross hearing deficit. NOSE: pink, moist mucosa with good air movement. Clear rhinorrhea without na
== END 2024-03-26 12:55 | disposition home or self-care (01) ==
PROVIDERS: Emergency Provider Nurse Practitioner Family
DX: H66.93 Otitis media, unspecified, bilateral (principal); J45.901 Unspecified asthma with (acute) exacerbation; F17.210 Nicotine dependence, cigarettes, uncomplicated; F41.9 Anxiety disorder, unspecified; I25.2 Old myocardial infarction; Z79.82 Long term (current) use of aspirin
CPT/HCPCS: 99213; G0463

== ENCOUNTER 2024-06-01 16:23 | Emergency (ER) | payer OTHER, SELFPAY ==
[2024-06-01 16:45] VITALS: BP 123/75; PULSE 92; RESP 16; TEMP 36.9; O2SAT 100
--- NOTE | 2024-06-01 17:36 | ED.URI ---
HPI - URI/Sore Throat General Chief Complaint: Upper Respiratory Infection Stated Complaint: ears/nausea Time Seen by Provider: 06/01/24 16:59 Source: patient and RN notes reviewed Mode of arrival: ambulatory Limitations: no limitations History of Present Illness HPI Narrative: Patient presents today complaining of bilateral ear pain times 2-3 weeks with mild nasal congestion and upset stomach. Hearing normal. Currently rates her pain 7/10 and has been taking Pepto-Bismol and Tylenol with mild relief. Patient recently had an RI and is currently on Plavix. Related Data Home Medications Medication Instructions Recorded Confirmed aspirin 81 mg chewable tablet 81 mg PO DAILY 10/04/23 06/01/24 metoprolol succinate 25 mg 25 mg PO DAILY 10/04/23 06/01/24 tablet,extended release 24 hr albuterol sulfate 90 mcg/actuation 2 puff inhalation Q4-6H PRN 02/28/24 06/01/24 aerosol inhaler Shortness Of Breath Or Wheezing clopidogrel 75 mg tablet 75 mg PO DAILY 02/28/24 06/01/24 rosuvastatin 20 mg tablet 20 mg PO DAILY 02/28/24 06/01/24 Allergies Allergy/AdvReac Type Severity Reaction Status Date / Time doxycycline Allergy Unknown Unknown Verified 06/01/24 17:10 lavender (Lavandula Allergy Hives Verified 06/01/24 17:09 angustifolia) Influenza Virus Vaccines AdvReac Severe Confusion Verified 06/01/24 17:09 pneumococcal vaccine AdvReac Unknown Confusion Verified 03/26/24 12:16 vaccine adjuvant emulsion AdvReac Fever Verified 06/01/24 17:11 MF59C.1 [From Fluad Quad (65y up)(PF)] Review of Systems Review of Systems: CONSTITUTIONAL: Denies body aches, fever, chills, or sweats. EYES: Denies visual changes, redness, or discharge. ENT: Denies rhinorrhea, sore throat. + bilateral ear pain, congestion CARDIOVASCULAR: Denies chest pain, palpitations, or edema. RESPIRATORY: Denies cough or dyspnea. GASTROINTESTINAL: Denies abdominal pain, nausea, vomiting, or diarrhea.+ upset stomach GENITOURINARY: Denies dysuria or hematuria. SKIN: Denies rash, itching, or wounds. MUSCULOSKELETAL: Denies back pain, joint pain, or myalgia. NEUROLOGIC: Denies headache, numbness, tingling, or weakness. PSYCH: Denies depression or anxiety. [facility] Past Medical History Medical History Anxiety Migraines Myocardial infarction Surgical History Surgical History H/O adenoidectomy History of History of tonsillectomy Family History Family History Mother Family history non-contributory Social History Social History Smoking packs per day: 1 Smoking cigarettes per day: 20.0 Smoking status: Current some day smoker Substance use: never Living arrangements: with family Gender identity (if verbalized by the patient): Female Sexual Orientation (if Verbalized by the Patient): Straight or Heterosexual Spiritual care concerns: No Comments At time of signature, I have reviewed and agree with nursing past medical, surgical, social and family history unless otherwise noted. Please see nursing chart for further information. There is no relevant family history pertinent to the presenting complaint Exam Narrative: GENERAL: Well-appearing, well-nourished, and in no acute distress. HEAD: Normocephalic, atraumatic. EYES: EOMI. No redness or drainage. Conjunctivae normal. ENT: Mucous membranes pink and moist. Nares clear. No rhinorrhea. TMs normal bilaterally with small amount of clear fluid causing effusion with no evidence of bacterial infection. Throat normal. Uvula midline. NECK: Normal AROM. Supple. No lymphadenopathy. CHEST: No respiratory distress. Clear to auscultation. HEART: Regular rate and rhythm. No murmur appreciated. EXTREMITIES: Normal range of motion. No edema. SKIN: Warm, dry, no rash. Capillary refill normal. Normal skin turgor. NEURO: No focal deficits. Alert and oriented x3. Gait steady. PSYCH: Normal affect. No signs of depression or anxiety. Course Course Level of Care: Express Care Visit Vital Signs Vital signs: Vital Signs Temperature 98.5 F 06/01/24 16:45 Pulse Rate 92 06/01/24 16:45 Respiratory Rate 16 06/01/24 16:45 Blood Pressure 123/75 06/01/24 16:45 Pulse Oximetry 100 06/01/24 16:45 Oxygen Delivery Room Air 06/01/24 16:45 Temperature 98.5 F 06/01/24 16:45 Pulse Rate 92 06/01/24 16:45 Respiratory Rate 16 06/01/24 16:45 Blood Pressure 123/75 06/01/24 16:45 Pulse Oximetry 100 06/01/24 16:45 Oxygen Delivery Room Air 06/01/24 16:45 Reviewed MDM - URI/Sore Throat MDM Narrative Medical decision making narrative: Patient has bilateral serous otitis media. Recommend Flonase and antihistamine as she cannot take Sudafed due to recent RI. States she can not take steroid nasal spray either due to it drying out her nasal passages. Recommend saline nasal spray in conjunction with Flonase or alone. PCP follow-up if symptoms persist. Anticipatory guidance given. Differential Diagnosis Differential diagnosis: Likely upper respiratory infection, otitis media, viral infection and other (Ruptured TM, serous otitis) Critical Care Time Critical Care Time Critical Care Time: No Discharge Plan Discharge Clinical Impression: Acute serous otitis media of both ears Qualifiers: Recurrence: non-recurrent Qualified Code(s): H65.03 - Acute serous otitis media, bilateral Patient Disposition: Home, Self-Care Condition: Stable Instructions: Fluid In The Ear (Serous Otitis Media) (ED) Additional Instructions: Please start an antihistamine such as Zyrtec, Claritin, or Connie and/or steroid nasal spray such as Flonase to be used in conjunction with saline nasal spray. Follow-up with your PCP or ENT if symptoms persist. Your blood pressure was elevated above 120/80 today at Urgent Care. This puts you above the threshold for follow up. Please schedule a followup visit with your personal physician as soon as possible, for further evaluation and treatment. Even blood pressure exceeding 120/80 may indicate pre-hypertension. Prescriptions: No Action aspirin 81 mg tablet,chewable 81 mg PO DAILY metoprolol succinate 25 mg tablet extended release 24 hr 25 mg PO DAILY clopidogrel 75 mg tablet 75 mg PO DAILY rosuvastatin 20 mg tablet 20 mg PO DAILY albuterol sulfate 90 mcg/actuation HFA aerosol inhaler 2 puff INHALATION Q4-6H PRN (Reason: Shortness Of Breath Or Wheezing) Rx Instructions: as prescribed loratadine [Claritin] 10 mg tablet 10 mg PO DAILY Qty: 30 0RF Follow-up/Referrals: PHYSICIAN NOT ON STAFF,NONSTAFF [Primary Care Provider] - Time of Disposition: 17:40
== END 2024-06-01 17:45 | disposition home or self-care (01) ==
PROVIDERS: Emergency Provider Nurse Practitioner
DX: H65.03 Acute serous otitis media, bilateral (principal); F17.210 Nicotine dependence, cigarettes, uncomplicated; I25.2 Old myocardial infarction; Z79.82 Long term (current) use of aspirin
CPT/HCPCS: 99211; G0463

== ENCOUNTER 2024-08-15 10:46 | Emergency (ER) | payer OTHER, SELFPAY ==
[2024-08-15 10:53] VITALS: BP 124/74; PULSE 72; RESP 20; TEMP 36.6; O2SAT 99
--- NOTE | 2024-08-15 10:53 | ED.EAR ---
HPI - Ear Problem General Chief complaint: Ear Stated complaint: ears/head congestion Source: patient Mode of arrival: ambulatory Limitations: no limitations History of Present Illness HPI Narrative: 34 year old female presented for complaint of nasal congestion, sinus pressure and bilateral ear pain for 2 weeks. Denies shortness of breath, wheezing nausea vomiting, fevers or lethargy. Taking Tylenol Sinus and NyQuil. Denies tinnitus, ear drainage, dizziness. MD Complaint: ear pain Related Data Home Medications ?Medication ?Instructions ?Recorded ?Confirmed ?Last Taken ?Type aspirin 81 mg chewable tablet 81 mg PO DAILY 10/04/23 06/01/24 Unknown History metoprolol succinate 25 mg 25 mg PO DAILY 10/04/23 06/01/24 Unknown History tablet,extended release 24 hr clopidogrel 75 mg tablet 75 mg PO DAILY 02/28/24 06/01/24 Unknown History rosuvastatin 20 mg tablet 20 mg PO DAILY 02/28/24 06/01/24 Unknown History Allergies Allergy/AdvReac Type Severity Reaction Status Date / Time doxycycline Allergy Unknown Unknown Verified 08/15/24 11:02 lavender (Lavandula Allergy Hives Verified 08/15/24 11:02 angustifolia) Influenza Virus Vaccines AdvReac Severe Confusion Verified 08/15/24 11:02 pneumococcal vaccine AdvReac Unknown Confusion Verified 08/15/24 11:02 vaccine adjuvant emulsion AdvReac Fever Verified 08/15/24 11:02 MF59C.1 (From Fluad Quad (65y up)(PF)) Review of Systems Review of Systems: CONSTITUTIONAL: Denies malaise, chills, or fever. EYES: Denies visual changes, redness, or discharge. ENT: Reports ear pain rhinorrhea, congestion, sinus pain CARDIOVASCULAR: Denies chest pain, palpitations, or edema. RESPIRATORY: Denies cough or dyspnea. GASTROINTESTINAL: Denies abdominal pain, nausea, vomiting, diarrhea MUSCULOSKELETAL: Denies myalgia. NEUROLOGIC: Denies headache. All systems reviewed & are unremarkable except as noted in HPI and below PMFSH Past Medical History Medical History Myocardial infarction Anxiety Migraines Surgical History Surgical History History of H/O adenoidectomy History of tonsillectomy Family History Family History Mother Family history non-contributory Social History Social History Smoking packs per day: 1 Smoking cigarettes per day: 20.0 Smoking status: Current some day smoker Substance use: never Living arrangements: with family Gender identity (if verbalized by the patient): Female Sexual Orientation (if Verbalized by the Patient): Straight or Heterosexual Spiritual care concerns: No Comments At time of signature, agree with nursing past medical, surgical, social and family history. There is no relevant family history pertinent to the presenting complaint Exam Narrative: GENERAL: Well-appearing EYES: PERRLA, conjunctivae clear ENT: Nares clear. Mucous membranes moist. TMs pearly lowe with dull light reflex bilaterally; no tragal tenderness. Oropharynx not erythematous without lesions. Tonsils not enlarged and without exudate, no drooling, no hoarseness, no trismus, uvula midline. NECK: Supple. No lymphadenopathy CHEST: Clear to auscultation, breath sounds equal. HEART: Regular rate and rhythm. No murmur heard. SKIN: Warm, dry, no rash. NEURO: Alert and oriented x3. PSYCH: Normal mood and affect Course Course Emergency Course: Patient is aware of diagnosis, understands and agrees to treatment plan. Anticipatory guidance given. Patient agrees to follow-up as directed and is aware of reasons to seek care at the emergency department. Portions of this record may have been created with voice recognition software Level of Care: Express Care Visit Vital Signs Vital signs: Vital Signs Temperature 98 F 08/15/24 10:53 Pulse Rate 72 08/15/24 10:53 Respiratory Rate 20 08/15/24 10:53 Blood Pressure 124/74 08/15/24 10:53 Pulse Oximetry 99 08/15/24 10:53 Oxygen Delivery Room Air 08/15/24 10:53 Temperature 98 F 08/15/24 10:53 Pulse Rate 72 08/15/24 10:53 Respiratory Rate 20 08/15/24 10:53 Blood Pressure 124/74 08/15/24 10:53 Pulse Oximetry 99 08/15/24 10:53 Oxygen Delivery Room Air 08/15/24 10:53 Reviewed Medical Decision Making MDM Narrative Medical decision making narrative: Discussed physical exam findings consistent with sinusitis. Advised supportive measures and signs/symptoms to go to the ER. Patient is appropriate for outpatient treatment and follow-up. Differential Diagnosis Differential Diagnosis: Coronavirus, strep pharyngitis, allergic rhinitis, upper respiratory tract infection, sinusitis, rhinosinusitis, nasopharyngitis, viral pharyngitis, otitis media, otitis externa, eustachian tube dysfunction, foreign body, cerumen impaction. Vital Signs Vital Signs: Vital Signs Temperature 98 F 08/15/24 10:53 Pulse Rate 72 08/15/24 10:53 Respiratory Rate 20 08/15/24 10:53 Blood Pressure 124/74 08/15/24 10:53 Pulse Oximetry 99 08/15/24 10:53 Oxygen Delivery Room Air 08/15/24 10:53 Temperature 98 F 08/15/24 10:53 Pulse Rate 72 08/15/24 10:53 Respiratory Rate 20 08/15/24 10:53 Blood Pressure 124/74 08/15/24 10:53 Pulse Oximetry 99 08/15/24 10:53 Oxygen Delivery Room Air 08/15/24 10:53 Discharge Plan Discharge Clinical Impression: Sinusitis Patient Disposition: Home, Self-Care Condition: Stable Instructions: Antibiotic Form, Sinusitis (ED) Additional Instructions: Recommendations: Flonase spray and Zyrtec (or Claritin/Connie) Tylenol 1000mg every 8 hours as needed for pain Symptomatic treatment includes: rest, fluids, and increase humidity of the air at home. Follow up with your primary care provider in 1 week. Go to the ER for worsening symptoms or concerns. Patient Language: [place] Prescriptions: New amoxicillin-pot clavulanate 875-125 mg tablet 1 tablet PO Q12H 7 Days Qty: 14 0RF No Action aspirin 81 mg tablet,chewable 81 mg PO DAILY metoprolol succinate 25 mg tablet extended release 24 hr 25 mg PO DAILY clopidogrel 75 mg tablet 75 mg PO DAILY rosuvastatin 20 mg tablet 20 mg PO DAILY Follow-up/Referrals: PHYSICIAN NOT ON STAFF,NONSTAFF [Primary Care Provider] - Time of Disposition: 11:11
--- OUTSIDE RECORDS SUMMARY | 2024-08-15 11:19 | XMS_ITS | Encounter Summary ---
Author Organization [facility] Healthcare Address [address] [place] [address] Care Team Providers Care Check Out Cashier Name Role Phone Dejuan Garcia MD Unavailable + [phone] Rita Spencer NP Primary Care Provider + [phone] Encounter Details Date Type Department Care Team (Late st Contact Info) Description 08/14/2024 Telephone [facility] Medical Group Primary Care at [address] [place] [address] Rita Spencer NP [address] [place] [address] [address] [place] [address] Social History Tobacco Use Types Packs/Day Years Used Date Smoking Tobacco: Every Day Cigarettes 0.5 11.2 Started: 06/14/2013 Smokeless Tobacco: Never Alcohol Use Standard Drinks/Week Comments No 0 (1 standard drink = 0.6 oz pur e alcohol) AUDIT-C Answer Date Recorded Q1: How often do you have a drink containing alcohol? Never 06/20/2024 Q2: How many drinks containi ng alcohol do you have on a typical day when you are drinking? Patient does not drink Q3: How often do you have si x or more drinks on one occasion? Never 06/20/2024 PHQ-2 Answer Date Recorded PHQ-2 Total Score (If total score is 3 or more points, staff should administer the PHQ-9) 0 06/20/2024 Personal Safety Answer Date Recorded Getting School Help Needed Denies 07/01 Comments No Sex and Gender Information Value Date Recorded Sex Assigned at Not on file Legal Sex Female 9:40 AM WET SANDER Gender Identity Female 11/06/2020 8:35 AM CDT Sexual Orientation Straight 10/22/2021 2: 52 PM CDT documented as of this encounter Miscellaneous Notes * Telephone Encounter - Diana Valdovinos MA - 08/14/2024 12:56 PM CST Scanned to pt's chart SANDER * Telephone Encounter - Diana Valdovinos MA - 08/14/2024 10:16 AM CST Ppw regarding pt's bp readings in inbox SANDER documented in this encounter Plan of Treatment Not on file documented as of this encounter Visit Diagnoses Not on filedocumented in this encounter Care Teams Check Out Cashier Relationship Specialty Start Date End Date Rita Spencer NP [address] [facility] [place] [address] PCP - General Family Medicine 07/07/22 Dejuan Garcia MD [address] [facility] [address] [place] [address] Consulting Physician Obstetrics and Gynecology 03/02/22 documented as of this encounter
--- OUTSIDE RECORDS SUMMARY | 2024-08-15 11:19 | XMS_ITS | Data Portability ---
Author Organization [place] [facility]- Address [address] [facility] [place] [address] Assessment Encounter Date Assessment Date Assessment LastModified by Organization Details LastModified Time 02/06/2011 02/06/2011 21 yo female with TMJ inflammation.? ? ? Discussed using NSAIDs aggressively over the next week until pain improves.? ? ? Also discussed reducing gum chewing until pain has gone away. Not available 02/09/2011 02:04:42 Plan of Treatment Reminders Order Date Submit Date Provider Last Modified By Organization Details Last Modified Time Details Appointments None record ed. Lab None record ed. Referral None record ed. Procedures None record ed. Surgeries None record ed. Imaging None record ed. Medication Orders None record ed. Patient TargetsNo targets recorded. Patient InstructionsNo instructions recorded. Reason for Referral None Reported. 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 Medical Equipment None Reported. Allergies No known drug allergies Medications Not known to be on any medication Vitals Date Recorded Body weight Respiratory rate Body temperature Heart rate Systolic blood pressure Diastolic blood pressure Provider Name and Address Organization Details Last Updated DateTime 1 02478.9 6394 g 20 /min 99 [degF] 90 /min 108 mm[Hg] 78 mm[Hg] Laila Ortiz [facility], 1 17:31:12 Social History None recorded. Functional Status None recorded. Mental Status None recorded. Family History Nothing Reported. Medical History No medical history recorded. Gynecological HistoryNo gynecological history recorded. Obstetrics History GPAL:G 0 P 0 0 0 0 Immunizations Vaccine Type Date Status Note Provider Nam e and Address Organization Details Recorded Time COVID-19, mRNA, LNP-S, PF, 30 mcg/0.3 mL dose, lucy-sucrose 01/29/2022 completed [place], [place] - [facility], 01/29/2022 17:42:10 Past Encounters Encounter ID Performer Location Encounter Start Date Encounter Closed Date Diagnosis/Indication Diagnosis SNOMED-CT Code Diagnosis ICD10 Code Diagnosis Note [id number] [address] [place] [address],[facility] [address] [place] [address] 03/14/2010 17:37:34 03/14/2010 17:38:44 [id number] [address] [place] [address],[facility] [address] [place] [address] 02/06/2011 17:24:07 02/09/2011 15:58:59 [id number] [facility] [address] [place] [address],[facility] [address] [place] [address] 01/29/2022 16:37:43 01/30/2022 16:43:19 Active immunization [id number] Z23 Health Concerns Section Related Observation LastModified by Organization Detai ls LastModified Time None Recorded Concern Status LastModified by Organization Details LastModified Time None Recorded Advance Directives Directive None Recorded Payers Encounter Date Sequence Insurance Name Policy Number Policy Shipley Covered Member ID Shipley Member ID Guarantor Name 03/14/2010 1 [place] [employer] Sapphire Paulson [id number] Sapphire Paulson 01/29/2022 1 [facility] - DOS ON OR AFTER 21 (MEDICAID REPLACEMENT - HMO) Sapphire Paulson [id number] Sapphire Paulson Notes Date Note Type Note Provider Name and Address Organization Details Recorded Time 02/06/2011 text/html InitializeSe ction( this.parentCornell patel, 1 ); this.removeN amanda(true)HPI None recorded. Patricia Chandra MD [address] [facility] [address], [place], [address], [facility], 02/06/2011 18:14:27 OBGyn Episode No OBEpisode recorded.
--- OUTSIDE RECORDS SUMMARY | 2024-08-15 11:19 | XMS_ITS ---
Author Organization [facility] Address [address] [facility] [facility] [place] [address] Phone Care Team Providers Care Photography And Prints Curator Name Role Phone Rosa Sparks APRN, DRUM REEL CUTTER Unavailable [phone] Rita Spencer APRN, DRUM REEL CUTTER Primary Care [facility] Chronic Condition Monitoring Status:Enrolled (Active) Start date:08/09/2024 Enrollment date:08/09/2024 Related social drivers of health:Intimate Partner Violence, Social Connections, Tobacco Use, Financial Resource Strain, Depression, Stress, Food Insecurity Continued Care and Services Coordination
--- OUTSIDE RECORDS SUMMARY | 2024-08-15 11:19 | XMS_ITS | Clinical Summary ---
Author Organization [facility] Address [address] [facility], [place] [address] Phone Care Team Providers Care Global Project Manager Name Role Phone Rosa Sparks UTILITY PORTER, REGIONAL SALES ASSOCIATE Unavailable [phone] Rita Specner UTILITY PORTER, REGIONAL SALES ASSOCIATE Primary Care Provi lynne Allergies Active Allergy Reactions Criticality Noted Date Comments Doxycycline Rash 11/15/2023 Hands swells, turn red, and itched Influenza Virus Vaccine Other (see Comments) Pneumococcal Vaccines Other (see Comments) 02/2019 Medications fluticasone (FLONASE) 50 MCG/ACT Suspension 1-2 Sprays by Nasal route daily. Use in each nostril as directed. Active Albuterol Sulfate (VENTOLIN HFA IN) take by inhalation. Active busPIRone (BUSPAR) 15 MG Tablet Take 15 mg by mouth 2 times daily as needed for Anxiety. 3 Active nicotine (NICODERM CQ) 21 MG/24HR PATCH 24 HR 1 Patch by Transdermal route daily as needed for Other (Nicotine dependency). 30 Patch 4 Active polyethylene glycol (GLYCOLAX, MIRALAX) 17 g PackIndication s:Constipation Take 1 Packet by mouth 2 times daily as needed for Constipation - 1st line. Dissolve in 4-8 oz of liquid. Indications: Constipation 90 Packet 4 Active aspirin 81 MG Chewable Tablet Take 1 Tablet by mouth daily. 90 Tablet 3 4 08/16/19 25 Active metoprolol Succinate (TOPROL-XL) 50 MG TABLET SR 24 HR Take 1 Tablet by mouth daily. 90 Tablet 3 4 Active rosuvastatin (Crestor) 20 MG Tablet Take 20 mg by mouth daily. Active clopidogrel (PLAVIX) 75 MG Tablet Take 1 Tablet by mouth daily. 90 Tablet 3 4 Active atorvastatin (LIPITOR) 40 MG Tablet Take 1 Tablet by mouth nightly. 90 Tablet 3 4 08/03/19 25 Active Problems Problem Noted Date Diagnosed Date Moderate obesity 08/04/2023 ST elevation myocardial infa rction (STEMI), unspecified artery 08/03/2023 Tobacco dependence 08/03/2023 Asthma 08/03/2023 Encounters Date Type Department Care Team Description 07/18/2024 Telephone [facility] Cardiology [facility] [address] [place] [address] Rosa Sparks APRN, NUNO Results 06/07/2024 1:30 PM KNURLING MACHINE TENDER - 06/07/2024 11:59 PM KNURLING MACHINE TENDER [facility] [address] [place] [address] Rosa Sparks APRN, REGIONAL SALES ASSOCIATE Discharge Disposition: Discharged to home or Selfcare 06/07/2024 Travel 05/30/2024 3:00 PM KNURLING MACHINE TENDER [facility] [address] [place] [address] Rosa Sparks, MEGHA, REGIONAL SALES ASSOCIATE ST elevation myocardial infarction (STEMI), unspecified artery (HCC) (Primary Dx); Primary hypertension; Tobacco dependence; Dyslipidemia; Palpitations Discharge Disposition: Discharged to home or Selfcare 05/30/2024 Travel from Last 3 Months Family History Medical History Relation Name Comments Asthma Father Diabetes Maternal Grandmother Diabetes Mother No Known Problems Sister Relation Name Status Comments Father Alive Maternal Grandmother Mother Alive Sister Alive Social History Tobacco Use Types Packs/Day Years Used Date Smoking Tobacco: Every Day Cigarettes 1 12.1 Started: 07/12/2012 Smokeless Tobacco: Never Tobacco Cessation:Ready to Q uit: Not Asked; Counseling Given: Not Answered Alcohol Use Standard Drinks/Week Comments Never 0 (1 standard drink = 0.6 oz pur e alcohol) [facility] Utilities Answer Date Recorded In the past 12 months has th e electric, gas, oil, or water company threatened to shut off services in your home? No 08/03/2023 Social Connection and Isolat ion Panel [NHANES] Answer Date Recorded In a typical week, how many times do you talk on the phone with family, friends, or neighbors? More than three times a week 08/03/2023 How often do you get togethe r with friends or relatives? More than three times a week 08/03/2023 How often do you attend chur ch or restoration services? Never 08/03/2023 Do you belong to any clubs o r organizations such as yazidi groups, unions, fraternal or athletic groups, or school groups? No 08/03/2023 How often do you attend meet ings of the clubs or organizations you belong to? Never 08/03/2023 Are you , , di vorced, , never , or living with a partner? 08/03/2023 AUDIT-C Answer Date Recorded Q1: How often do you have a drink containing alc ohol? 2-4 times a month 08/03/2023 Q2: How many drinks containi ng alcohol do you have on a typical day when you are drinking? 1 or 2 08/03/2023 Q3: How often do you have si x or more drinks on one occasion? Never 08/03/2023 Overall Financial Resource Strain (CARDIA) Answe r Date Recorded How hard is it for you to pa y for the very basics like food, housing, medical care, and heating? Somewhat hard 08/03/2023 Exercise Vital Sign Answer Date Recorde d On average, how many days pe r week do you engage in moderate to strenuous exercise (like a brisk walk)? 7 days 08/03/2023 On average, how many minutes do you engage in exercise at this level? 40 min 08/03/2023 Hunger Vital Sign Answer Date Recorded Within the past 12 months, y ou worried that your food would run out before you got the money to buy more. Sometimes true Within the past 12 months, t he food you bought just didn't last and you didn't have money to get more. Sometimes true PRAPARE - Transportation Answer Date Re corded In the past 12 months, has l ack of transportation kept you from medical appointments or from getting medications? No 07/13 In the past 12 months, has l ack of transportation kept you from meetings, work, or from getting things needed for daily living? No 08/03/2023 Housing Stability Vital Sign Answer Isidro e Recorded In the last 12 months, was t here a time when you were not able to pay the mortgage or rent on time? No 08/03/2023 In the last 12 months, how many places have you lived? 1 08/03/2023 In the last 12 months, was t here a time when you did not have a steady place to sleep or slept in a custodial (including now)? No 08/03/2023 Sexually Active Control Partners Comments Yes Oral Contraceptive Male Comments No Sex and Gender Information Value Date Recorded Sex Assigned at Not on file Legal Sex Female 11:11 PM CDT Gender Identity Not on file Sexual Orientation Not on file Last Filed Vital Signs Vital Sign Reading Time Taken Comments Blood Pressure 134/80 05/30/2024 3:02 PM KNURLING MACHINE TENDER Pulse 83 05/30/2024 3:02 PM KNURLING MACHINE TENDER Temperature 36.8 ??C (98.2 ??F) 05/30/2024 3:02 PM CS T Respiratory Rate 16 05/30/2024 3:02 PM KNURLING MACHINE TENDER Oxygen Saturation 100% 05/30/2024 3:02 PM KNURLING MACHINE TENDER Inhaled Oxygen Concentration - - Weight 80.3 kg (177 lb) 05/30/2024 3:02 PM KNURLING MACHINE TENDER Height 154.9 cm (5' 1 ) 05/30/2024 3:02 PM KNURLING MACHINE TENDER Body Mass Index 33.44 05/30/2024 3:02 PM KNURLING MACHINE TENDER Plan of Treatment Upcoming Encounters Date Type Department Care Team (Late st Contact Info) Description 12/26/2024 2:30 PM CDT Office Visit [facility] - [facility]iology - [place] [address] [place] [address] Rosa Sparks APRN, REGIONAL SALES ASSOCIATE [address] [facility], [address] [place] [address] Health Maintenance Due Date Last Done Comments Hepatitis C Virus (HCV) Screening 1990 Hepatitis B Immunization (1 of 3 - 19+ 3-dose series) 01/02/2011 Pneumococcal Immunization Combined (1 of 2 - PCV) 01/02/2011 Pap Smear 01/02/2013 Cervical Cancer Screening (CCS) 01/02/2022 HPV/Cotest 01/02/2022 Influenza Immunization (#1) 2024 SARS-COV-2 Immunization ( season) 2024 01/29/2022, 04/29/2021, 04/08/2021 Respiratory Syncytial Virus (RSV) Immunization (Adult) (1 - 1-dose 75+ series) 01/02/2067 DTaP/Tdap/Td Immunization Discontinued 2019, 05/10/2018, 05/08/2015, Additional history exists TdaP Immunization Completed 04/30/2020, , 05/08/2015 Diabetes: Hemoglobin A1c Discontinued 08/03/2023 Meningococcal Immunization (ACWY) Aged Out No longer eligible based on patient's age to complete this topic Rotavirus Immunization Aged Out No lo nger eligible based on patient's age to complete this topic Medical Devices Implanted Type Area Restrooms Or Lounges Maid Device Identifier Shelf Expiration Date Model / Serial / Lot System Coronary Stent Xience Skypoint Everolimus Eluting 3.50 Mm X 23 Mm / Rapid-Exchange - [id number] Implanted:Qty: 1 on 08/03/2023 by Syeda Morris MD PhD at [facility] IMPLANT N/A: Coronary [employer] [id number] 08/23/2025 [id number] / / [id number] Device Clsr 70cm 6fr Angio-Seal Vip .035in Vasc Collagen Valuelink Gw Insertion carl Ortez Client Engagement Manager - [id number] Implanted:Qty: 1 on 08/03/2023 by ySeda Morris MD PhD at [facility] IMPLANT N/A: [employer] [id number] 12/29/2023 [id number] / / [id number] Procedures Procedure Name Priority Date/Time Associated Diagnosis Comments EVENT RECORDER, 30-DAY Routine 06/07/2024 1:56 PM KNURLING MACHINE TENDER Palpitations HEMOGLOBIN A1C W/ ESTIMATED GLUCOSE Routine 08/03/2023 12:07 PM KNURLING MACHINE TENDER from Last 3 Months or Most Recently Relevant to Health Maintenance Results * EVENT RECORDER, 30-DAY (06/07/2024 1:56 PM KNURLING MACHINE TENDER) Anatomical Region Laterality Modality CARDIO N/A Electrocardiogra phy Narrative 07/12/2024 1:11 PM KNURLING MACHINE TENDER HOLTER MONITOR REPORT: Patient name: Sapphire Paulson Patient : ??1990 Patient Age: 34 y.o. Indication: Palpitation Requesting provider: Rosa Sparks CNP Study Duration: Prescribed period 30 days, Interpretable data 26 days 17 hours 52 mins Summary: Minimum HR: 51 BPM Average HR: 85 BPM Maximum HR 152 BPM 1. ??Atrial ectopy / premature atrial complexes (PAC) ??- ??1360 supraventricular ectopic beats occurred (<1 % of complexes) mainly as isolated ectopy. 2. ??Ventricular ectopy / premature ventricular complexes (PVC) ??- ??501 ventricular ectopic beats occurred (<1 % of complexes) mainly as isolated ectopy. 3. ??No significant bradycardia or pauses occurred. 4. ??Atrial fibrillation/flutter was not detected Manually Triggered events: ??There were 5 manually triggered events. ?? During these triggered episodes, the patient reported Chest pressure and sinus rhythm without rhythm or conduction abnormalities were noted. Other tracings mainly demonstrated sinus rhythm Conclusion: No sustained arrhythmias. ?? Procedure Note Emerita Ring MD - 07/12/2024 HOLTER MONITOR REPORT: Patient name: Sapphire Paulson Patient : 1990 Patient Age: 34 y.o. Indication: Palpitation Requesting provider: Rosa Sparks CNP Study Duration: Prescribed period 30 days, Interpretable data 26 days 17 hours 52 mins Summary: Minimum HR: 51 BPM Average HR: 85 BPM Maximum HR 152 BPM 1. Atrial ectopy / premature atrial complexes (PAC) - 1360supraventricular ectopic beats occurred (<1 % of complexes) mainly asisolated ectopy. 2. Ventricular ectopy / premature ventricular complexes (PVC) - 501ventricular ectopic beats occurred (<1 % of complexes) mainly as isolatedectopy. 3. No significant bradycardia or pauses occurred. 4. Atrial fibrillation/flutter was not detected Manually Triggered events: There were 5 manually triggered events.During these triggered episodes, the patient reported Chest pressure andsinus rhythm without rhythm or conduction abnormalities were noted. Other tracings mainly demonstrated sinus rhythm Conclusion: No sustained arrhythmias. Rosa Sparks APRN, CNP IMG ECG ORDERABLES F inal Result * Hemoglobin A1C w/ Estimated Glucose (08/03/2023 12:07 PM KNURLING MACHINE TENDER) HGB-A1C 5.4 4.0 - 6.0 % 08/03/2023 6:34 PM KNURLING MACHINE TENDER [facility] Est Average Glucose 108.3 mg/dL 08/03/2023 6:34 PM KNURLING MACHINE TENDER [facility] Blood Venipuncture / Unknown 08/03/2023 12:07 PM KNURLING MACHINE TENDER 08/03/2023 12:11 PM KNURLING MACHINE TENDER Narrative [facility] - 08/03/2023 6:34 PM KNURLING MACHINE TENDER HEMOGLOBIN A1C: DIABETIC PATIENTS: WELL-CONTROLLED: ?? 6.2 - 7.0 INTERMEDIATE WELL-CONTROLLED: ??7.0 - 9.0 POORLY-CONTROLLED: ??>9.0 us Geneva Osborne APRN, CNP CHEMISTRY ORDERABLES Fi nal Result [facility] [address] [place] [address] from Last 3 Months or Most Recently Relevant to Health Maintenance Insurance MEDICAID [employer] Advance Directives * Full Code (Latest Code Status on File) Date Activated Date Inactivated Comments 08/03/2023 3:43 PM 08/04/2023 5:06 PM CPR-Full Yordan atment: FULL ARREST: Attempt Resuscitation/CPR wit intubation and mechanical ventilation. PRE-ARREST: Use entire range of life support measures to stabilize the patient. Care Teams Global Project Manager Relationship Specialty Start Date End Date Rita Spencer APRN, REGIONAL SALES ASSOCIATE [address] [facility] [address] [place] [address] PCP - General Advanced Practice Nurse 10/19/23 Rosa Sparks APRN, REGIONAL SALES ASSOCIATE [address] [facility], [address] [place] [address] Nurse Practitioner Cardiology 08/10/23
--- OUTSIDE RECORDS SUMMARY | 2024-08-15 11:19 | XMS_ITS | Referral Summary ---
Author Organization [facility] Address [address] [place] [address] Care Team Providers Care Informatics Specialist Name Role Phone Dejuan Garcia MD Unavailable + [phone] Rita Spencer NP Primary Care Provider + [phone] Encounters Date Type Department Care Team Description 08/14/2024 Telephone [facility] Primary Care at [address] [phone] Rita Spencer NP 06/27/2024 Orders Only [facility] Primary Care at [address] [phone] Rita Spencer NP Rash (Primary Dx) 06/26/2024 Telephone [facility] Primary Care at [address] [phone] Rita Spencer NP 06/20/2024 2:15 PM [employer] BUSINESS ANALY[employer] Office Visit [facility] Primary Care at [address] [phone] Rufino Rosas MD Referred otalgia of both ears (Primary Dx); Acute cough from Last 3 Months Allergies Active Allergy Reactions Criticality Noted Date Comments Influenza Virus Vaccines Other (See comments) High Reaction: OTHER REACTION, Pneumococcal 23-Callie Ps Vaccine Other (See comments) Low 11/16/2018 Medications cholecalciferol (VITAMIN D-3) 5,000 unit capsule Take 1 capsule (5,000 Units total) by mouth daily 90 capsule 3 12/24/20 20 Active cetirizine (ZyrTEC) 10 mg tablet Take 1 tablet (10 mg total) by mouth daily 90 tablet 3 10/30/19 22 Active aspirin 81 mg chewable tablet Take 1 tablet (81 mg total) by mouth daily 08/05/19 24 Active clopidogreL (PLAVIX) 75 mg tablet Take 1 tablet (75 mg total) by mouth daily 08/05/19 24 Active metoprolol XL (TOPROL-XL) 25 mg extended release tablet Take 1 tablet (25 mg total) by mouth daily 08/05/19 24 Active nicotine (NICODERM CQ) [address] 1 patch on the skin daily as needed 08/04/19 24 Active ondansetron ODT (ZOFRAN-ODT) 4 mg disintegrating tablet Take 1 tablet (4 mg total) by mouth every 6 (six) hours as needed for nausea 08/04/19 24 Active polyethylene glycol (MIRALAX) 17 gram packet Take 1 packet (17 g total) by mouth 2 (two) times a day as needed for constipation 08/04/19 24 Active busPIRone (BUSPAR) 15 mg tabletIndications: Anxiety Take 0.5 tablets (7.5 mg total) by mouth daily as needed (anxiety) 08/25/19 24 Active guaiFENesin ER (MUCINEX) 600 mg 12 hr tabletIndications: Acute non-recurrent pansinusitis Take 1 tablet (600 mg total) by mouth 2 (two) times a day for 10 days 20 tablet 10/25/19 24 Active triamcinolone (KENALOG) 0.1 % ointment Apply topically 2 (two) times a day as needed for irritation or rash 30 g 11/05/19 24 Active albuterol HFA (PROVENTIL HFA,VENTOLIN HFA,PROAIR HFA) 90 mcg/actuation inhaler Inhale 2 puffs every 6 (six) hours as needed for wheezing 6.7 each 2 11/17/19 24 Active nystatin powderIndications: Intertrigo Apply topically 4 (four) times a day 60 g 2 01/07/20 24 Active senna (SENOKOT) 8.6 mg tablet Take 1 tablet by mouth 2 (two) times a day as needed for constipation 90 tablet 2 03/08/20 24 Active rosuvastatin (CRESTOR) 20 mg tabletIndications: History of PA (myocardial infarction) Take 1 tablet (20 mg total) by mouth nightly 03/31/20 24 Active Active Problems Problem Noted Date Diagnosed Date Intertrigo 01/07/2024 Assessment & Plan (01/07/2024 3:19 PM CDT): -chronic, not at goal -patient has tried nystatin cream without relief -start on nystatin powder 4 times daily -advised patient to keep the area clean and dry -recommend wearing 100% cotton underwear -follow up if not improving Pelvic pain 01/07/2024 Assessment & Plan (01/07/2024 3:23 PM CDT): -possibly radiating from back pain due to atorvastatin -stop atorvastatin start on rosuvastatin 20 mg nightly -advised patient to follow up with Gynecology given that her vaginal discharge has not resolved -if not improving, may need to order abdominal and pelvic ultrasounds -follow up in 3 months or sooner as needed Lower abdominal pain 01/07/2024 Assessment & Plan (01/07/2024 3:23 PM CDT): -possibly radiating from back pain due to atorvastatin -stop atorvastatin start on rosuvastatin 20 mg nightly -advised patient to follow up with Gynecology given that her vaginal discharge has not resolved -if not improving, may need to order abdominal and pelvic ultrasounds -follow up in 3 months or sooner as needed Class 1 obesity with serious comorbidity and body mass index (BMI) of 33.0 to 33.9 in adult 10/18/2023 Assessment & Plan (04/03/2024 9:00 AM CDT): -chronic, not at/near goal goal BMI <30 Healthy, high-protein, lower carbohydrate, lower fat lifestyle and exercise for 150min/week recommended Recommend tracking everything you put in your mouth on an doris like [employer] Hand Measurements: A fist or cupped hand = 1 cup 1 cup = 1??-2 servings of fruit juice 1 oz. of cold cereal 2 oz. of cooked cereal, rice or pasta 8 oz. of milk or yogurt A thumb = 1 oz. of cheese Consuming low-fat cheese helps you meet the required servings from the milk, yogurt and cheese group. 1?? oz. of low-fat cheese counts as 8 oz. of milk or yogurt. Handful = 1-2 oz. of snack food Thumb tip = 1 teaspoon Keep high-fat foods, such as peanut butter and mayonnaise, at a minimum. One teaspoon is equal to the end of your thumb, from the knuckle up. Three teaspoons equals 1 tablespoon. Palm = 3 oz. of meat Choose lean poultry, fish, shellfish and beef. One palm size portion equals 3 oz. for an adult and 1??-2 oz. for a child under 5. 1 tennis ball or a fist= 1/2 cup of fruit and vegetables Healthy diets include a variety of colorful fruits and vegetables every day. The secret to serving size is in your hand. Snacking can add up. Because hand sizes vary, compare your fist size to an actual measuring cup. Assessment & Plan (01/07/2024 7:05 AM CDT): -chronic, not at/near goal goal BMI <30 Healthy, high-protein, lower carbohydrate, lower fat lifestyle and exercise for 150min/week recommended Recommend tracking everything you put in your mouth on an doris like [employer] Hand Measurements: A fist or cupped hand = 1 cup 1 cup = 1??-2 servings of fruit juice 1 oz. of cold cereal 2 oz. of cooked cereal, rice or pasta 8 oz. of milk or yogurt A thumb = 1 oz. of cheese Consuming low-fat cheese helps you meet the required servings from the milk, yogurt and cheese group. 1?? oz. of low-fat cheese counts as 8 oz. of milk or yogurt. Handful = 1-2 oz. of snack food Thumb tip = 1 teaspoon Keep high-fat foods, such as peanut butter and mayonnaise, at a minimum. One teaspoon is equal to the end of your thumb, from the knuckle up. Three teaspoons equals 1 tablespoon. Palm = 3 oz. of meat Choose lean poultry, fish, shellfish and beef. One palm size portion equals 3 oz. for an adult and 1??-2 oz. for a child under 5. 1 tennis ball or a fist= 1/2 cup of fruit and vegetables Healthy diets include a variety of colorful fruits and vegetables every day. The secret to serving size is in your hand. Snacking can add up. Because hand sizes vary, compare your fist size to an actual measuring cup. Assessment & Plan (10/27/2023 12:05 PM CDT): -chronic, not at/near goal goal BMI <30 Healthy, high-protein, lower carbohydrate, lower fat lifestyle and exercise for 150min/week recommended Recommend tracking everything you put in your mouth on an doris like [employer] Hand Measurements: A fist or cupped hand = 1 cup 1 cup = 1??-2 servings of fruit juice 1 oz. of cold cereal 2 oz. of cooked cereal, rice or pasta 8 oz. of milk or yogurt A thumb = 1 oz. of cheese Consuming low-fat cheese helps you meet the required servings from the milk, yogurt and cheese group. 1?? oz. of low-fat cheese counts as 8 oz. of milk or yogurt. Handful = 1-2 oz. of snack food Thumb tip = 1 teaspoon Keep high-fat foods, such as peanut butter and mayonnaise, at a minimum. One teaspoon is equal to the end of your thumb, from the knuckle up. Three teaspoons equals 1 tablespoon. Palm = 3 oz. of meat Choose lean poultry, fish, shellfish and beef. One palm size portion equals 3 oz. for an adult and 1??-2 oz. for a child under 5. 1 tennis ball or a fist= 1/2 cup of fruit and vegetables Healthy diets include a variety of colorful fruits and vegetables every day. The secret to serving size is in your hand. Snacking can add up. Because hand sizes vary, compare your fist size to an actual measuring cup. Assessment & Plan (10/18/2023 12:33 PM CDT): Wt Readings from Last 3 Encounters: 10/15/23 83 kg (183 lb) 08/25/23 81 kg (178 lb 9.6 oz) 08/10/23 78 kg (172 lb) Body mass index is 33.47 kg/m??. -Weight gain noted, not at goal of <30 bmi -Discussed recommendations for exercise at least 30 minutes moderate to vigorous exercise most days of the week. (minimum 150 minutes weekly) -Discussed importance of well-balanced diet. History of PA (myocardial infarction) 08/10/2023 Assessment & Plan (04/03/2024 8:59 AM CDT): -occurred in July 2023 -continue on aspirin 81 mg daily, clopidogrel 75 mg daily, and metoprolol XL 25 mg daily -continue on rosuvastatin 20 mg daily- advised patient to take this in the evening. If this does not help with the pain, will try the dosage every other day -continue follow up with Cardiology -advised patient go to ED if experiencing chest pain -encouraged smoking cessation Assessment & Plan (01/07/2024 3:18 PM CDT): -occurred in July 2023 -continue on aspirin 81 mg daily, clopidogrel 75 mg daily, and metoprolol XL 25 mg daily -stop atorvastatin 40 mg nightly and start on rosuvastatin 20 mg nightly -continue follow up with Cardiology -advised patient go to ED if experiencing chest pain -encouraged smoking cessation Assessment & Plan (10/27/2023 12:19 PM CDT): -occurred in July 2023 -continue on aspirin 81 mg daily, atorvastatin 40 mg nightly, clopidogrel 75 mg daily, and metoprolol XL 25 mg daily -continue follow up with Cardiology -advised patient go to ED if experiencing chest pain -encouraged smoking cessation Assessment & Plan (08/25/2023 9:10 AM [employer] BUSINESS ANALYST): -occurred in July 2023 -continue on aspirin 81 mg daily, atorvastatin 40 mg nightly, clopidogrel 75 mg daily, and metoprolol XL 25 mg daily -continue follow up with Cardiology -advised patient go to ED if experiencing chest pain -encouraged smoking cessation Assessment & Plan (08/10/2023 12:24 PM [employer] BUSINESS ANALYST): Acute problem- this is a new problem-onset 1 week ago- was seen and treated by cardiology CC procedure with stent placement on 08/03/2023 at [facility] Continue Metoprolol 25 mg daily. Plavix 75 mg daily, aspirin 81 mg daily Stop smoking Heart healthy diet and increase activity to at least 150 min/week once cleared by cardiology Follow up with cardiology as directed on discharge Continue to monitor Insomnia due to medical condition 02/02/2023 Assessment & Plan (02/02/2023 10:29 AM CDT): -chronic, not at/near goal -patient has tried hydroxyzine and melatonin without relief -start on trazodone 50 mg nightly as needed -discussed with patient that better management of her anxiety and depression should help to improve her sleep -refer to Psychiatry at [facility] -advised patient to keep appointment with therapist Alcohol use 07/07/2022 Assessment & Plan (07/07/2022 3:38 PM [employer] BUSINESS ANALYST): -recommended that patient stop drinking alcohol -patient has been drinking everyday typically 1-2 beers at a time but has drank up to 6 beers at a time recently Seasonal allergic rhinitis due to pollen 022 Assessment & Plan (05/05/2022 3:55 PM CDT): .condition is worsening. Discussed environmental controls No smoking around patient, no animals in bedroom, keep windows closed, no hanging clothes on the line Take zyrtec/claritin/allgera in the am Saline rinse in the am astelin nasal spray 1 spray each nostril, followed by a baby sniff Wait about 10 min, then Flonase 1 spray each nostril, aim away from cartilage, spray once-baby sniff, switch to the other nostril and repeat. Saline rinse about 15 min before bed astelin nasal spray 1 spray each nostril, followed by a baby sniff wait about 10 min then Flonase 1 spray each nostril, aim away from cartilage, spray once-baby sniff, switch to the other nostril and repeat. If working or playing outside, may need to do saline rinses when coming in and change clothes right away Recommend staying on the above treatment from the beginning of September to Come off of meds if possible during the summer Then restart on meds mid to late February until Thanksgi Come off of meds if possible during the winter Anxiety 02/25/2021 Assessment & Plan (08/25/2023 9:13 AM [employer] BUSINESS ANALYST): -chronic, stable- patient recently stopped her citalopram and Wellbutrin and feels that she is doing well -patient is experiencing dizziness on her buspirone since she has started metoprolol -okay to continue off citalopram and Wellbutrin -decrease to buspirone 15 mg 1/2 tablet daily as needed for anxiety. Advised patient if this continues to cause dizziness, to let me know so I can send in a 5 mg dosage. -follow up in 2 months or sooner as needed Patient reiterated no suicidal thoughts at this time; take medication as directed; contact 911 and go to the ER if becomes suicidal; discussed side effects of medication with patient; encouraged healthy diet and exericise; encouraged patient to see a counselor Assessment & Plan (02/02/2023 10:27 AM CDT): Patient reiterated no suicidal thoughts at this time; take medication as directed; contact 911 and go to the ER if becomes suicidal; discussed side effects of medication with patient; encouraged healthy diet and exericise; encouraged patient to see a counselor -chronic, not at/near goal -continue on citalopram 40 mg daily -increase to buspirone 15 mg 3 times daily as needed. Discussed with patient this increase is for the short term until controller medications better stabilize her anxiety -start on Wellbutrin XL 150 mg daily. Discussed with patient there is a possibility this could worsen her anxiety and to let me know immediately if it worsens her anxiety -advised patient to keep appointment with therapist. -referral sent to Psychiatry at [facility] for medication management and ADHD evaluation Assessment & Plan (07/07/2022 3:39 PM [employer] BUSINESS ANALYST): Patient reiterated no suicidal thoughts at this time; take medication as directed; contact 911 and go to the ER if becomes suicidal; discussed side effects of medication with patient; encouraged healthy diet and exericise; encouraged patient to see a counselor HPI: Condition is stable Patient has been using buspirone only as needed. A&P: Discussed/ordered labs, encouraged healthy, low carbohydrate lifestyle and at least 150min/week of exercise, continue on citalopram 40 mg daily and buspirone 15 mg twice daily as needed. Recommend seeing a counselor/psychiatrist. New referral sent to Psychiatry Assessment & Plan (05/05/2022 3:48 PM CDT): Patient reiterated no suicidal thoughts at this time; take medication as directed; contact 911 and go to the ER if becomes suicidal; discussed side effects of medication with patient; encouraged healthy diet and exericise; encouraged patient to see a counselor HPI: Condition is stable A&P: Discussed/ordered labs, encouraged healthy, low carbohydrate lifestyle and at least 150min/week of exercise, continue on citalopram 40 mg daily, buspirone 15 mg twice daily Assessment & Plan (10/29/2021 3:52 PM CDT): Patient reiterated no suicidal thoughts at this time; take medication as directed; contact 911 and go to the ER if becomes suicidal; discussed side effects of medication with patient; encouraged healthy diet and exericise; encouraged patient to see a counselor HPI: Condition is stable A&P: Discussed/ordered labs, encouraged healthy, low carbohydrate lifestyle and at least 150min/week of exercise, continue on citalopram 40mg daily and buspirone 15mg morning and bedtime Assessment & Plan (09/10/2021 4:07 PM [employer] BUSINESS ANALYST): Patient reiterated no suicidal thoughts at this time; take medication as directed; contact 911 and go to the ER if becomes suicidal; discussed side effects of medication with patient; encouraged healthy diet and exericise; encouraged patient to see a counselor HPI: Condition is improving Pt reports she is taking the buspirone at bedtime only because it was making her tired in the mornings. A&P: Discussed/ordered labs, encouraged healthy, low carbohydrate lifestyle and at least 150min/week of exercise, continue on citalopram 40mg daily and buspirone 15mg patient only using once daily at bedtime. Assessment & Plan (06/11/2021 4:13 PM [employer] BUSINESS ANALYST): Patient reiterated no suicidal thoughts at this time; take medication as directed; contact 911 and go to the ER if becomes suicidal; discussed side effects of medication with patient; encouraged healthy diet and exericise; encouraged patient to see a counselor HPI: Condition is improving, but not at goal down from 3 buspirone to 2 daily. She feels she is coping better now. Next week is court date for divorce. A&P: Discussed/ordered labs, encouraged healthy, low carbohydrate lifestyle and at least 150min/week of exercise, continue on citalopram 40mg daily, use the buspirone 15mg twice daily and can take a third one if needed. Assessment & Plan (04/29/2021 4:27 PM CDT): Patient reiterated no suicidal thoughts at this time; take medication as directed; contact 911 and go to the ER if becomes suicidal; discussed side effects of medication with patient; encouraged healthy diet and exericise; encouraged patient to see a counselor HPI: Condition is not at/near goal A&P: Discussed/ordered labs, encouraged healthy, low carbohydrate lifestyle and at least 150min/week of exercise, continue on citalopram 40mg daily as controller medication, increase buspirone to 15mg three times daily, on days when she is seeing her estranged /court dates, she can take 2 in the am. Encouraged seeing a counselor, she has not scheduled appointment yet. Assessment & Plan (02/25/2021 2:31 PM CDT): Patient reiterated no suicidal thoughts at this time; take medication as directed; contact 911 and go to the ER if becomes suicidal; discussed side effects of medication with patient; encouraged healthy diet and exericise; encouraged patient to see a counselor HPI: depression is stable , anxiety is worsening A&P: Discussed/ordered labs, encouraged healthy, low carbohydrate lifestyle and at least 150min/week of exercise, continue on citalopram 40 mg daily as a controller medication. We increased her buspirone to 15 mg in the morning and 30 mg before bed our last office visit, this helped but made her sleep too hard. She is taking 15mg twice daily. Encouraged patient to see counselor. On days when you know you are going to have to see/deal with estranged , take 2 in the am. Pt states it does not make her drowsy during the day. I would like you to work on biofeedback. You can download an doris on your phone. Examples would be headspace, calm, [id number], Personal Mike. Please work on this every day. It is similar to if you were a musician with a big performance coming up. You would practice your instrument every day so that on the day of the big performance, you don't even have to think about playing. This works the same way for using the biofeedback to bring you down from those high stress/anxiety moments. If you practice using the biofeedback skills daily, it will become a second nature and you will be able to help yourself more effectively. Migraine with aura and witho ut status migrainosus, not intractable 06/25/2020 Assessment & Plan (01/07/2021 1:25 PM CDT): HPI: Condition is improving since coming off of orthocyclen and placed on sprintec A&P: Discussed/ordered labs, encouraged healthy, low carbohydrate lifestyle and at least 150min/week of exercise. On the last visit, propanolol was stopped because it was causing severe mood changes. Patient has failed on topamax. Has not been able to get the aimovig due to insurance. She has imitrex 100 mg once as needed at onset of migraine. Assessment & Plan (11/26/2020 1:31 PM CDT): HPI: Condition is improving, but not at goal the propranolol was helping but causing her to have severe mood changes in the last 3 wks since she has been on it. A&P: Discussed/ordered labs, encouraged healthy, low carbohydrate lifestyle and at least 150min/week of exercise, we will stop the propranolol and send in script for aimovig. Since pt has failed on topamax and now propranolol, imitrex, this should now meet their requirements for coverage. Assessment & Plan (11/06/2020 10:47 AM CDT): HPI: Condition is worsening 10-15 headache days in the last month, the sumatriptan helps but only helps for 30 min and then the headache comes back. Has had about 10 migraines in the last month. She has been taking topiramate 50mg twice daily and feels it has helped some with decreasing the amount of headaches she was getting by about 5 headaches in the last month. Pt has been avoiding taking tylenol/ibuprofen/aleve in the last 3 wks. Pt has current migraine that started yesterday, is very light sensitive. Pt is at scale 9/10 on pain A&P: Discussed/ordered labs, encouraged healthy, low carbohydrate lifestyle and at least 150min/week of exercise, Continue on topiramate 50mg twice daily for controller and increase the sumatriptan to 100mg to use as abortive therapy. We attempted to switch from sumatriptan to rizatriptan, but insurance doesn't cover it. We will add on aimovig or emgality as additional controller medication to be injected once monthly. Aimovig script sent in. We will give toradol 60mg IM today, monitored pt x 15 min without adverse reaction Called and spoke with pt and pain scale went from 9/10 down to 4/10, 90 min after injection given Assessment & Plan (10/03/2020 9:52 AM CDT): HPI: Condition is worsening pt states she has had 12 Migraines in the last month. Discussed avoiding all caffeine-no soda, tea, coffee or chocolate, no sharp cheeses, no processed meats, no hot dogs, no MSG as found in burmese food, no more than 1/2 banana a day, no artificial sweeteners; drink lots of water. Discussed medication rebound headaches. We will have her stop taking any ibuprofen/naproxen/tylenol for a few days as taking multiple days of those meds are likely causing rebound headaches. At last visit, she thought she was having a sinus infection, we treated with antibiotic. Her headaches were improving a little bit since she tried to stay off the tylenol/naproxen/ibuprofen. She had an infection in her tooth last week and that has been increasing the headaches. We will have pt start on topiramate daily as a preventative medication. We will also give sumatriptan for abortive (rescue) therapy. discussed proper use of a triptan-taking within 30min of onset of headache, may repeat in 2 hours if headache not improved, not to exceed 2 in 24 hours Return in 1 mo for follow up Assessment & Plan (08/21/2020 10:31 AM [employer] BUSINESS ANALYST): HPI: Condition is stable patient having a migraine headache every other day for the last 3 wks. She has been taking tylenol sinus A&P: Encouraged healthy, low carbohydrate lifestyle and at least 150min/week of exercise, ; discussed keeping a headache diary-she has been, but forgot it at home. Discussed avoiding all caffeine-no soda, tea, coffee or chocolate, no sharp cheeses, no processed meats, no hot dogs, no MSG as found in burmese food, no more than 1/2 banana a day, no artificial sweeteners; drink lots of water. Discussed medication rebound headaches. We will have her stop taking any ibuprofen/naproxen/tylenol for a few days as taking multiple days of those meds are likely causing rebound headaches. We will treat pt with antibiotic, Take zyrtec in the am Saline rinse in the am Saline rinse about 15 min before bed Flonase 2 sprays each nostril, aim away from cartilage, spray once-baby sniff, switch to the other nostril and repeat. 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 This will help maintain the good bacteria that is in your gut. Assessment & Plan (06/25/2020 4:46 PM [employer] BUSINESS ANALYST): Pt having headaches for 7 days a month. She takes ibuprofen and tylenol. Sometimes are more intense than others. The meds help for a while, but comes back the next day. No correlation to menses. Ibuprofen as needed; discussed keeping a headache diary; discussed avoiding all caffeine, no wine, no soda, tea, coffee, chocolate, no sharp cheeses, no processed meats, no hot dogs, no MSG as found in burmese food, no more than 1/2 banana a day, no artificial sweeteners, fresh bread (less than 24 hours old); drink lots of water. See me back in 1 mo to discuss the headache diary. Severe episode of recurrent major depressive disorder, without psychotic features 06/25/2020 Assessment & Plan (08/25/2023 9:13 AM [employer] BUSINESS ANALYST): -chronic, stable- patient recently stopped her citalopram and Wellbutrin and feels that she is doing well -patient is experiencing dizziness on her buspirone since she has started metoprolol -okay to continue off citalopram and Wellbutrin -decrease to buspirone 15 mg 1/2 tablet daily as needed for anxiety. Advised patient if this continues to cause dizziness, to let me know so I can send in a 5 mg dosage. -follow up in 2 months or sooner as needed Patient reiterated no suicidal thoughts at this time; take medication as directed; contact 911 and go to the ER if becomes suicidal; discussed side effects of medication with patient; encouraged healthy diet and exericise; encouraged patient to see a counselor Assessment & Plan (02/02/2023 10:27 AM CDT): Patient reiterated no suicidal thoughts at this time; take medication as directed; contact 911 and go to the ER if becomes suicidal; discussed side effects of medication with patient; encouraged healthy diet and exericise; encouraged patient to see a counselor -chronic, not at/near goal -continue on citalopram 40 mg daily -increase to buspirone 15 mg 3 times daily as needed. Discussed with patient this increase is for the short term until controller medications better stabilize her anxiety -start on Wellbutrin XL 150 mg daily. Discussed with patient there is a possibility this could worsen her anxiety and to let me know immediately if it worsens her anxiety -advised patient to keep appointment with therapist. -referral sent to Psychiatry at [facility] for medication management and ADHD evaluation Assessment & Plan (07/07/2022 3:38 PM [employer] BUSINESS ANALYST): Patient reiterated no suicidal thoughts at this time; take medication as directed; contact 911 and go to the ER if becomes suicidal; discussed side effects of medication with patient; encouraged healthy diet and exericise; encouraged patient to see a counselor HPI: Condition is stable Patient has been using buspirone only as needed. A&P: Discussed/ordered labs, encouraged healthy, low carbohydrate lifestyle and at least 150min/week of exercise, continue on citalopram 40 mg daily and buspirone 15 mg twice daily as needed. Recommend seeing a counselor/psychiatrist. New referral sent to Psychiatry Assessment & Plan (05/05/2022 3:53 PM CDT): Patient reiterated no suicidal thoughts at this time; take medication as directed; contact 911 and go to the ER if becomes suicidal; discussed side effects of medication with patient; encouraged healthy diet and exericise; encouraged patient to see a counselor HPI: Condition is stable A&P: Discussed/ordered labs, encouraged healthy, low carbohydrate lifestyle and at least 150min/week of exercise, continue on citalopram 40 mg daily, buspirone 15 mg twice daily Recommend counseling/psychiatrist Assessment & Plan (01/29/2022 2:15 PM CDT): Patient reiterated no suicidal thoughts at this time; take medication as directed; contact 911 and go to the ER if becomes suicidal; discussed side effects of medication with patient; encouraged healthy diet and exericise; encouraged patient to see a counselor HPI: Condition is stable A&P: Discussed/ordered labs, encouraged healthy, low carbohydrate lifestyle and at least 150min/week of exercise, continue on citalopram 40 mg daily and buspirone 15 mg mostly just at night. She is only using it in the am if she is feeling overwhelmed. It causes her to be tired. Assessment & Plan (10/29/2021 3:53 PM CDT): Patient reiterated no suicidal thoughts at this time; take medication as directed; contact 911 and go to the ER if becomes suicidal; discussed side effects of medication with patient; encouraged healthy diet and exericise; encouraged patient to see a counselor HPI: Condition is stable A&P: Discussed/ordered labs, encouraged healthy, low carbohydrate lifestyle and at least 150min/week of exercise, continue on citalopram 40mg daily and buspirone 15mg morning and bedtime Assessment & Plan (09/10/2021 4:08 PM [employer] ANALYST): Patient reiterated no suicidal thoughts at this time; take medication as directed; contact 911 and go to the ER if becomes suicidal; discussed side effects of medication with patient; encouraged healthy diet and exericise; encouraged patient to see a counselor HPI: Condition is improving Pt reports she is taking the buspirone at bedtime only because it was making her tired in the mornings. A&P: Discussed/ordered labs, encouraged healthy, low carbohydrate lifestyle and at least 150min/week of exercise, continue on citalopram 40mg daily and buspirone 15mg patient only using once daily at bedtime. Assessment & Plan (06/11/2021 4:13 PM [employer] BUSINESS ANALYST): Patient reiterated no suicidal thoughts at this time; take medication as directed; contact 911 and go to the ER if becomes suicidal; discussed side effects of medication with patient; encouraged healthy diet and exericise; encouraged patient to see a counselor HPI: Condition is improving, but not at goal down from 3 buspirone to 2 daily. She feels she is coping better now. Next week is court date for divorce. A&P: Discussed/ordered labs, encouraged healthy, low carbohydrate lifestyle and at least 150min/week of exercise, continue on citalopram 40mg daily, use the buspirone 15mg twice daily and can take a third one if needed. Assessment & Plan (02/25/2021 2:29 PM CDT): Patient reiterated no suicidal thoughts at this time; take medication as directed; contact 911 and go to the ER if becomes suicidal; discussed side effects of medication with patient; encouraged healthy diet and exericise; encouraged patient to see a counselor HPI: depression is stable , anxiety is worsening A&P: Discussed/ordered labs, encouraged healthy, low carbohydrate lifestyle and at least 150min/week of exercise, continue on citalopram 40 mg daily as a controller medication. We increased her buspirone to 15 mg in the morning and 30 mg before bed our last office visit, this helped but made her sleep too hard. She is taking 15mg twice daily. Encouraged patient to see counselor. On days when you know you are going to have to see/deal with estranged , take 2 in the am. Pt states it does not make her drowsy during the day. Assessment & Plan (01/07/2021 1:31 PM CDT): Patient reiterated no suicidal thoughts at this time; take medication as directed; contact 911 and go to the ER if becomes suicidal; discussed side effects of medication with patient; encouraged healthy diet and exericise; encouraged patient to see a counselor HPI: Condition is not at/near goal A&P: Discussed/ordered labs, encouraged healthy, low carbohydrate lifestyle and at least 150min/week of exercise, at last office visit we changed from paroxetine to on citalopram 40 mg daily as controller medication. We also gave buspirone 10 mg twice daily. We will continue on the citalopram 40mg as controller medication. We will increase the buspirone to 15mg am and 30mg before bed. encourged to see a counselor. Return to office in 2-4 wks Assessment & Plan (12/24/2020 4:04 PM CDT): Patient reiterated no suicidal thoughts at this time; take medication as directed; contact 911 and go to the ER if becomes suicidal; discussed side effects of medication with patient; encouraged healthy diet and exericise; encouraged patient to see a counselor HPI: Condition is worsening A&P: Discussed/ordered labs, encouraged healthy, low carbohydrate lifestyle and at least 150min/week of exercise, has been on wellbutrin and paxil in the past We will stop the paroxetine and replace with citalopram 40mg daily to take as a controller medication. We will also give buspirone 10mg twice daily to help with anxiety. Today, have your [id number] watch your kids overnight. I need you to get some sleep. Please take two of the buspirone 10mg tablets about 8pm today with goal of going to bed at 9pm. This double dose is a one time dose. Starting tomorrow only take 1 tablet twice daily. Return in 2 wks. List of counselors given. Assessment & Plan (06/25/2020 4:08 PM [employer] BUSINESS ANALYST): She says she feels fine, then will start balling 20-30 times a day. 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 Dr. Garcia (RECREATIONAL THERAPY AIDE) is treating this with Paroxetine 10mg daily. She feels normal on the medication. No longer having the crying episodes. Mild intermittent asthma without complication Assessment & Plan (06/25/2020 4:10 PM [employer] ANALYST): HPI: Condition is stable A&P: Discussed/ordered labs, encouraged healthy, low carbohydrate lifestyle and at least 150min/week of exercise, continue on albuterol only as needed. Mostly needs it in the winter and in the summer when she is out in the heat. Please consider the albuterol as a rescue only medication. If needing the albuterol more than 2xwk, please contact office. Chronic bilateral low back pain without sciatica 06/25/2020 Assessment & Plan (01/07/2024 3:22 PM CDT): -possibly related to atorvastatin -stop atorvastatin start on rosuvastatin 20 mg nightly -follow up in 3 months or sooner as needed Assessment & Plan (06/25/2020 5:08 PM [employer] ANALYST): Ibuprofen as needed Chronic bilateral thoracic back pain 06/25/2020 Assessment & Plan (06/25/2020 5:07 PM [employer] ANALYST): Ibuprofen as needed Scoliosis 06/25/2020 Assessment & Plan (06/25/2020 5:07 PM [employer] ANALYST): Ibuprofen as needed Tobacco abuse 06/25/2020 Assessment & Plan (08/25/2023 9:13 AM [employer] BUSINESS ANALYST): Patient aware of risks of tobacco use up to and including . Patient does not have interest in quitting at this time. Recommend smoking cessation. Assessment & Plan (08/10/2023 12:21 PM [employer] BUSINESS ANALYST): Chronic problem She was advised to quit smoking; the risks of continued tobacco use discussed. Assessment & Plan (10/22/2021 3:14 PM CDT): Pt was smoker - would benefit from quitting as its likely worsening URIs Assessment & Plan (09/10/2021 4:06 PM [employer] BUSINESS ANALYST): Patient states she has not smoked for 3 days because of her bronchitis and is ready to quit. If starting to smoke again, use this method for smoking cessation: discussed using calendar method; cutting back by 1-2 cigarettes every 3 days until no longer smoking; discussed breaking habits; discussed moving furniture in house, removing all smoking related items from home; no smoking in home or car; wash maradiaga, steam clean carpet, wash curtains/blinds; febreeze fabric that cannot be laundered; enlist help from family and friends, let them know you are trying to quit smoking so they can encourage you. Assessment & Plan (10/03/2020 9:46 AM CDT): Discussed smoking cessation with patient; patient wanting to quit smoking; discussed using calendar method; cutting back by 1-2 cigarettes every 3 days until no longer smoking; discussed breaking habits; discussed moving furniture in house, removing all smoking related items from home; no smoking in home or car; wash [place], steam clean carpet, wash curtains/blinds; febreeze fabric that cannot be laundered; enlist help from family and friends, let them know you are trying to quit smoking so they can encourage you. Assessment & Plan (08/21/2020 10:33 AM [employer] BUSINESS ANALYST): Decreased to 8 cig/day. She is trying to quit. 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 Caldera (opthalmologist) Was seeing neurologist but only went once-was told she was having migraines because she was too fat Assessment & Plan (08/21/2020 10:28 AM [employer] BUSINESS ANALYST): Pt sees [facility] once a year in February She has seen opthalmologist in the past and was sent to have MRI and neurology. She was not happy with the neurologist or the other sales office administrator she saw. She doesn't want to see another one. Assessment & Plan (06/25/2020 4:44 PM [employer] BUSINESS ANALYST): Pt sees [facility] once a year. She has seen sales office administrator in the past and was sent to have MRI and neurology, she was not happy with the neurologist and other sales office administrator she was. We will have pt f/u with ophthalmology again. 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 She has seen sales office administrator in the past and was sent to have MRI and neurology, she was not happy with the neurologist and other sales office administrator she was. We will have pt f/u with ophthalmology again. Resolved Problems Problem Noted Date Diagnosed Date Resolved Date Hospital discharge follow-up 08/10/2023 08/25/2023 Assessment & Plan (08/10/2023 12:26 PM [employer] BUSINESS ANALYST): I personally reviewed H and P documentation, labs, EKG tracing, and procedural notes completed and obtained at [facility] from patient's recent admission and stay for STEMI Follow-up with PCP as scheduled Encouraged to follow up with Cardiology as directed on discharge Medications reviewed and reconciled this visit Patient encouraged to avoid alcohol use and tattoo at this time. 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 Upper respiratory tract infection 01/04/2023 03/05/2023 Encounter for female sterilization procedure 2 08/25/2023 Overview (01/22/2022): Added automatically from request for surgery [id number] Laryngeal spasm 01/20/2022 08/25/2023 Assessment & Plan (01/20/2022 3:02 PM CDT): Continue Cetirizine and Flonase 2 sprays into each nostril while looking down over the sink, do not sniff in or blow nose after use for at least 30 minutes daily Start Pepcid 40 mg at bedtime Hearing test Call Dental Office for Cancellation list LPR discussed and Handout provided Dental caries 01/20/2022 08/25/2023 Assessment & Plan (01/20/2022 5:16 PM CDT): Follow up with Dental school Abscess 04/29/2021 08/25/2023 Assessment & Plan (04/29/2021 4:36 PM CDT): 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 Mother gets these also and has been told they are hereditary. Refer to [facility] in infectious disease. Class 1 obesity without seri ous comorbidity with body mass index (BMI) of 32.0 to 32.9 in adult 08/21/2020 10/18/2023 Assessment & Plan (08/25/2023 9:08 AM [employer] BUSINESS ANALYST): -chronic, not at/near goal goal BMI <30 Healthy, high-protein, lower carbohydrate, lower fat lifestyle and exercise for 150min/week recommended Recommend tracking everything you put in your mouth on an doris like [employer] Hand Measurements: A fist or cupped hand = 1 cup 1 cup = 1??-2 servings of fruit juice 1 oz. of cold cereal 2 oz. of cooked cereal, rice or pasta 8 oz. of milk or yogurt A thumb = 1 oz. of cheese Consuming low-fat cheese helps you meet the required servings from the milk, yogurt and cheese group. 1?? oz. of low-fat cheese counts as 8 oz. of milk or yogurt. Handful = 1-2 oz. of snack food Thumb tip = 1 teaspoon Keep high-fat foods, such as peanut butter and mayonnaise, at a minimum. One teaspoon is equal to the end of your thumb, from the knuckle up. Three teaspoons equals 1 tablespoon. Palm = 3 oz. of meat Choose lean poultry, fish, shellfish and beef. One palm size portion equals 3 oz. for an adult and 1??-2 oz. for a child under 5. 1 tennis ball or a fist= 1/2 cup of fruit and vegetables Healthy diets include a variety of colorful fruits and vegetables every day. The secret to serving size is in your hand. Snacking can add up. Because hand sizes vary, compare your fist size to an actual measuring cup. Assessment & Plan (02/02/2023 6:57 AM CDT): HPI: Condition is not at/near goal goal BMI <30 A&P: Healthy, high-protein, lower carbohydrate, lower fat lifestyle and exercise for 150min/week recommended Recommend tracking everything you put in your mouth on an doris like [employer] Hand Measurements: A fist or cupped hand = 1 cup 1 cup = 1??-2 servings of fruit juice 1 oz. of cold cereal 2 oz. of cooked cereal, rice or pasta 8 oz. of milk or yogurt A thumb = 1 oz. of cheese Consuming low-fat cheese helps you meet the required servings from the milk, yogurt and cheese group. 1?? oz. of low-fat cheese counts as 8 oz. of milk or yogurt. Handful = 1-2 oz. of snack food Thumb tip = 1 teaspoon Keep high-fat foods, such as peanut butter and mayonnaise, at a minimum. One teaspoon is equal to the end of your thumb, from the knuckle up. Three teaspoons equals 1 tablespoon. Palm = 3 oz. of meat Choose lean poultry, fish, shellfish and beef. One palm size portion equals 3 oz. for an adult and 1??-2 oz. for a child under 5. 1 tennis ball or a fist= 1/2 cup of fruit and vegetables Healthy diets include a variety of colorful fruits and vegetables every day. The secret to serving size is in your hand. Snacking can add up. Because hand sizes vary, compare your fist size to an actual measuring cup. Assessment & Plan (07/07/2022 7:40 AM [employer] BUSINESS ANALYST): HPI: Condition is not at/near goal goal BMI <30 A&P: Healthy, high-protein, lower carbohydrate, lower fat lifestyle and exercise for 150min/week recommended Recommend tracking everything you put in your mouth on an doris like [employer] Hand Measurements: A fist or cupped hand = 1 cup 1 cup = 1??-2 servings of fruit juice 1 oz. of cold cereal 2 oz. of cooked cereal, rice or pasta 8 oz. of milk or yogurt A thumb = 1 oz. of cheese Consuming low-fat cheese helps you meet the required servings from the milk, yogurt and cheese group. 1?? oz. of low-fat cheese counts as 8 oz. of milk or yogurt. Handful = 1-2 oz. of snack food Thumb tip = 1 teaspoon Keep high-fat foods, such as peanut butter and mayonnaise, at a minimum. One teaspoon is equal to the end of your thumb, from the knuckle up. Three teaspoons equals 1 tablespoon. Palm = 3 oz. of meat Choose lean poultry, fish, shellfish and beef. One palm size portion equals 3 oz. for an adult and 1??-2 oz. for a child under 5. 1 tennis ball or a fist= 1/2 cup of fruit and vegetables Healthy diets include a variety of colorful fruits and vegetables every day. The secret to serving size is in your hand. Snacking can add up. Because hand sizes vary, compare your fist size to an actual measuring cup. Assessment & Plan (05/04/2022 11:16 AM CDT): HPI: Condition is stable goal BMI <30 A&P: Healthy, high-protein, lower carbohydrate, lower fat lifestyle and exercise for 150min/week recommended Recommend tracking everything you put in your mouth on an doris like [employer] Lower carb substitutions: Aldi carries a zero net carb bread If you are looking for whole potatoes, like to use in soup or new potato shape/flavor, radishes are a great replacement If you are looking for mashed potatoes, riced cauliflower in the frozen bag section are a great replacement For pasta, try using zucchini noodles, lay them out on a cookie sheet and pat dry with a tea towel to try to remove as much moisture as possible. Heat your pasta sauce on the stove and put the noodles in for 30-45 seconds. If you leave them in much longer they will become mushy [place] and/or coconut flour instead of regular flour For pizza dough, try fathead pizza dough recipe online. To get a crispy crust, bake on one side for 8-12 min, then flip over and bake on the other side for 8-12 min, then put toppings on and bake until the cheese on top of pizza melts chaffles recipe online For ice cream, try the brand Enlightened To replace coffee creamer and make it low carb, use heavy creamer with sugar free [place]ani sweetener For chips, try Whisps or pork rinds For yogurt, try Two Good bulgarian yogurt Use Pinterest for recipe ideas. Type in low carb... Hand Measurements: A fist or cupped hand = 1 cup 1 cup = 1??-2 servings of fruit juice 1 oz. of cold cereal 2 oz. of cooked cereal, rice or pasta 8 oz. of milk or yogurt A thumb = 1 oz. of cheese Consuming low-fat cheese helps you meet the required servings from the milk, yogurt and cheese group. 1?? oz. of low-fat cheese counts as 8 oz. of milk or yogurt. Handful = 1-2 oz. of snack food Thumb tip = 1 teaspoon Keep high-fat foods, such as peanut butter and mayonnaise, at a minimum. One teaspoon is equal to the end of your thumb, from the knuckle up. Three teaspoons equals 1 tablespoon. Palm = 3 oz. of meat Choose lean poultry, fish, shellfish and beef. One palm size portion equals 3 oz. for an adult and 1??-2 oz. for a child under 5. 1 tennis ball or a fist= 1/2 cup of fruit and vegetables Healthy diets include a variety of colorful fruits and vegetables every day. The secret to serving size is in your hand. Snacking can add up. Remember, 1 handful equals 1 oz. of nuts and small candies. For chips and pretzels, 2 handfuls equals 1 oz. Because hand sizes vary, compare your fist size to an actual measuring cup. Assessment & Plan (01/29/2022 12:20 PM CDT): HPI: Condition is not at/near goal goal BMI <30 A&P: Healthy, high-protein, lower carbohydrate, lower fat lifestyle and exercise for 150min/week recommended Recommend tracking everything you put in your mouth on an doris like [employer] Lower carb substitutions: Aldi carries a zero net carb bread If you are looking for whole potatoes, like to use in soup or new potato shape/flavor, radishes are a great replacement If you are looking for mashed potatoes, riced cauliflower in the frozen bag section are a great replacement For pasta, try using zucchini noodles, lay them out on a cookie sheet and pat dry with a tea towel to try to remove as much moisture as possible. Heat your pasta sauce on the stove and put the noodles in for 30-45 seconds. If you leave them in much longer they will become mushy [place] and/or coconut flour instead of regular flour For pizza dough, try fathead pizza dough recipe online. To get a crispy crust, bake on one side for 8-12 min, then flip over and bake on the other side for 8-12 min, then put toppings on and bake until the cheese on top of pizza melts chaffles recipe online For ice cream, try the brand Enlightened To replace coffee creamer and make it low carb, use heavy creamer with sugar free Torani sweetener For chips, try Whisps or pork rinds For yogurt, try Two Good bulgarian yogurt Use [place] for recipe ideas. Type in low carb... Hand Measurements: A fist or cupped hand = 1 cup 1 cup = 1??-2 servings of fruit juice 1 oz. of cold cereal 2 oz. of cooked cereal, rice or pasta 8 oz. of milk or yogurt A thumb = 1 oz. of cheese Consuming low-fat cheese helps you meet the required servings from the milk, yogurt and cheese group. 1?? oz. of low-fat cheese counts as 8 oz. of milk or yogurt. Handful = 1-2 oz. of snack food Thumb tip = 1 teaspoon Keep high-fat foods, such as peanut butter and mayonnaise, at a minimum. One teaspoon is equal to the end of your thumb, from the knuckle up. Three teaspoons equals 1 tablespoon. Palm = 3 oz. of meat Choose lean poultry, fish, shellfish and beef. One palm size portion equals 3 oz. for an adult and 1??-2 oz. for a child under 5. 1 tennis ball or a fist= 1/2 cup of fruit and vegetables Healthy diets include a variety of colorful fruits and vegetables every day. The secret to serving size is in your hand. Snacking can add up. Remember, 1 handful equals 1 oz. of nuts and small candies. For chips and pretzels, 2 handfuls equals 1 oz. Because hand sizes vary, compare your fist size to an actual measuring cup. Assessment & Plan (10/29/2021 1:04 PM CDT): HPI: Condition is not at/near goal goal BMI <30 A&P: Healthy, high-protein, lower carbohydrate, lower fat lifestyle and exercise for 150min/week recommended Substitutions: Recommend tracking everything you put in your mouth on an doris like [employer] or [employer] carries a zero net carb bread If you are looking for whole potatoes, like to use in soup or new potato shape/flavor, radishes are a great replacement If you are looking for mashed potatoes, riced cauliflower in the frozen bag section are a great replacement For pasta, try using zucchini noodles, lay them out on a cookie sheet and pat dry with a tea towel to try to remove as much moisture as possible. Heat your pasta sauce on the stove and put the noodles in for 30-45 seconds. If you leave them in much longer they will become mushy [place] and/or coconut flour instead of regular flour For pizza dough, try fathead pizza dough recipe online. To get a crispy crust, bake on one side for 8-12 min, then flip over and bake on the other side for 8-12 min, then put toppings on and bake until the cheese on top of pizza melts chaffles recipe online For ice cream, try the brand Enlightened To replace coffee creamer and make it low carb, use heavy creamer with sugar free [place] sweetener For chips, try Whisps or pork rinds For yogurt, try Two Good bulgarian yogurt Use Pinterest for recipe ideas. Type in low carb... Assessment & Plan (10/22/2021 3:13 PM CDT): Not at goal - diet and lifestyle modifcations Assessment & Plan (09/10/2021 8:38 AM [employer] BUSINESS ANALYST): HPI: Condition is not at/near goal goal BMI <30 A&P: Healthy, high-protein, lower carbohydrate, lower fat lifestyle and exercise for 150min/week recommended Substitutions: Recommend tracking everything you put in your mouth on an doris like [employer] or [employer] carries a zero net carb bread If you are looking for whole potatoes, like to use in soup or new potato shape/flavor, radishes are a great replacement If you are looking for mashed potatoes, riced cauliflower in the frozen bag section are a great replacement For pasta, try using zucchini noodles, lay them out on a cookie sheet and pat dry with a tea towel to try to remove as much moisture as possible. Heat your pasta sauce on the stove and put the noodles in for 30-45 seconds. If you leave them in much longer they will become mushy [place] and/or coconut flour instead of regular flour For pizza dough, try fathead pizza dough recipe online. To get a crispy crust, bake on one side for 8-12 min, then flip over and bake on the other side for 8-12 min, then put toppings on and bake until the cheese on top of pizza melts chaffles recipe online For ice cream, try the brand Enlightened To replace coffee creamer and make it low carb, use heavy creamer with sugar free [place] sweetener For chips, try Whisps or pork rinds For yogurt, try Two Good bulgar[place] yogurt Use Pinterest for recipe ideas. Type in low carb... Assessment & Plan (06/11/2021 4:14 PM [employer] BUSINESS ANALYST): HPI: Condition is not at/near goal goal BMI <30 A&P: Healthy, high-protein, lower carbohydrate, lower fat lifestyle and exercise for 150min/week recommended Substitutions: Recommend tracking everything you put in your mouth on an doris like [employer] or [employer] carries a zero net carb bread If you are looking for whole potatoes, like to use in soup or new potato shape/flavor, radishes are a great replacement If you are looking for mashed potatoes, riced cauliflower in the frozen bag section are a great replacement For pasta, try using zucchini noodles, lay them out on a cookie sheet and pat dry with a tea towel to try to remove as much moisture as possible. Heat your pasta sauce on the stove and put the noodles in for 30-45 seconds. If you leave them in much longer they will become mushy [place] and/or coconut flour instead of regular flour For pizza dough, try fathead pizza dough recipe online. To get a crispy crust, bake on one side for 8-12 min, then flip over and bake on the other side for 8-12 min, then put toppings on and bake until the cheese on top of pizza melts chaffles recipe online For ice cream, try the brand Enlightened To replace coffee creamer and make it low carb, use heavy creamer with sugar free [place]ani sweetener For chips, try Whisps or pork rinds For yogurt, try Two Good bulgarian yogurt Use Pinterest for recipe ideas. Type in low carb... Assessment & Plan (04/29/2021 12:21 PM CDT): HPI: Condition is not at/near goal goal BMI <30 A&P: Healthy, high-protein, lower carbohydrate, lower fat lifestyle and exercise for 150min/week recommended Substitutions: Recommend tracking everything you put in your mouth on an doris like [employer] or [employer] carries a zero net carb bread If you are looking for whole potatoes, like to use in soup or new potato shape/flavor, radishes are a great replacement If you are looking for mashed potatoes, riced cauliflower in the frozen bag section are a great replacement For pasta, try using zucchini noodles, lay them out on a cookie sheet and pat dry with a tea towel to try to remove as much moisture as possible. Heat your pasta sauce on the stove and put the noodles in for 30-45 seconds. If you leave them in much longer they will become mushy [place] and/or coconut flour instead of regular flour For pizza dough, try fathead pizza dough recipe online. To get a crispy crust, bake on one side for 8-12 min, then flip over and bake on the other side for 8-12 min, then put toppings on and bake until the cheese on top of pizza melts chaffles recipe online For ice cream, try the brand Enlightened To replace coffee creamer and make it low carb, use heavy creamer with sugar free [place] sweetener For chips, try Whisps or pork rinds For yogurt, try Two Good bulgarian yogurt Use Pinterest for recipe ideas. Type in low carb... Assessment & Plan (02/25/2021 2:31 PM CDT): HPI: Condition is improving, but not at goal goal BMI <30 A&P: Healthy, high-protein, lower carbohydrate, lower fat lifestyle and exercise for 150min/week recommended Substitutions: Recommend tracking everything you put in your mouth on an doris like [employer] or [employer] carries a zero net carb bread If you are looking for whole potatoes, like to use in soup or new potato shape/flavor, radishes are a great replacement If you are looking for mashed potatoes, riced cauliflower in the frozen bag section are a great replacement For pasta, try using zucchini noodles, lay them out on a cookie sheet and pat dry with a tea towel to try to remove as much moisture as possible. Heat your pasta sauce on the stove and put the noodles in for 30-45 seconds. If you leave them in much longer they will become mushy [place] and/or coconut flour instead of regular flour For pizza dough, try fathead pizza dough recipe online. To get a crispy crust, bake on one side for 8-12 min, then flip over and bake on the other side for 8-12 min, then put toppings on and bake until the cheese on top of pizza melts chaffles recipe online For ice cream, try the brand Enlightened To replace coffee creamer and make it low carb, use heavy creamer with sugar free [place] sweetener For chips, try Whisps or pork rinds For yogurt, try Two Good bulgar[place] yogurt Use Pinterest for recipe ideas. Type in low carb... Assessment & Plan (01/07/2021 8:43 AM CDT): HPI: Condition is not at/near goal goal BMI <30 A&P: Healthy, high-protein, lower carbohydrate, lower fat lifestyle and exercise for 150min/week recommended Substitutions: Recommend tracking everything you put in your mouth on an doris like [employer] or [employer] carries a zero net carb bread If you are looking for whole potatoes, like to use in soup or new potato shape/flavor, radishes are a great replacement If you are looking for mashed potatoes, riced cauliflower in the frozen bag section are a great replacement For pasta, try using zucchini noodles, lay them out on a cookie sheet and pat dry with a tea towel to try to remove as much moisture as possible. Heat your pasta sauce on the stove and put the noodles in for 30-45 seconds. If you leave them in much longer they will become mushy [place] and/or coconut flour instead of regular flour For pizza dough, try fathead pizza dough recipe online. To get a crispy crust, bake on one side for 8-12 min, then flip over and bake on the other side for 8-12 min, then put toppings on and bake until the cheese on top of pizza melts chaffles recipe online For ice cream, try the brand Enlightened To replace coffee creamer and make it low carb, use heavy creamer with sugar free [place]ani sweetener For chips, try Whisps or pork rinds For yogurt, try Two Good bulgarian yogurt Use Pinterest for recipe ideas. Type in low carb... Assessment & Plan (12/24/2020 4:04 PM CDT): HPI: Condition is not at/near goal goal BMI <30 A&P: Healthy, high-protein, lower carbohydrate, lower fat lifestyle and exercise for 150min/week recommended Substitutions: Recommend tracking everything you put in your mouth on an doris like [employer] or [employer] carries a zero net carb bread If you are looking for whole potatoes, like to use in soup or new potato shape/flavor, radishes are a great replacement If you are looking for mashed potatoes, riced cauliflower in the frozen bag section are a great replacement For pasta, try using zucchini noodles, lay them out on a cookie sheet and pat dry with a tea towel to try to remove as much moisture as possible. Heat your pasta sauce on the stove and put the noodles in for 30-45 seconds. If you leave them in much longer they will become mushy [place] and/or coconut flour instead of regular flour For pizza dough, try fathead pizza dough recipe online. To get a crispy crust, bake on one side for 8-12 min, then flip over and bake on the other side for 8-12 min, then put toppings on and bake until the cheese on top of pizza melts chaffles recipe online For ice cream, try the brand Enlightened To replace coffee creamer and make it low carb, use heavy creamer with sugar free [place]ani sweetener For chips, try Whisps or pork rinds For yogurt, try Two Good bulgarian yogurt Use Pinterest for recipe ideas. Type in low carb... Assessment & Plan (11/26/2020 1:35 PM CDT): HPI: Condition is improving, but not at goal Going to the gym A&P: Healthy, low carbohydrate lifestyle and exercise for 150min/week recommended Substitutions: Recommend tracking everything you put in your mouth on an doris like [employer] or [employer] carries a zero net carb bread If you are looking for whole potatoes, like to use in soup or new potato shape/flavor, radishes are a great replacement If you are looking for mashed potatoes, riced cauliflower in the frozen bag section are a great replacement For pasta, try using zucchini noodles, lay them out on a cookie sheet and pat dry with a tea towel to try to remove as much moisture as possible. Heat your pasta sauce on the stove and put the noodles in for 30-45 seconds. If you leave them in much longer they will become mushy [place] and/or coconut flour instead of regular flour For pizza dough, try fathead pizza dough recipe online. To get a crispy crust, bake on one side for 8-12 min, then flip over and bake on the other side for 8-12 min, then put toppings on and bake until the cheese on top of pizza melts chaffles recipe online For ice cream, try the brand Enlightened To replace coffee creamer and make it low carb, use heavy creamer with sugar free [place] sweetener For chips, try Whisps or pork rinds For yogurt, try [employer] Good [place] yogurt Use Pinterest for recipe ideas. Type in low carb... Assessment & Plan (10/03/2020 9:45 AM CDT): HPI: Condition is Not at goal A&P: Healthy, low carbohydrate lifestyle and exercise for 150min/week recommended Substitutions: Recommend tracking everything you put in your mouth on an doris like [employer] carries a zero net carb bread If you are looking for whole potatoes, like to use in soup or new potato shape/flavor, radishes are a great replacement If you are looking for mashed potatoes, riced cauliflower in the frozen bag section are a great replacement For pasta, try using zucchini noodles, lay them out on a cookie sheet and pat dry with a tea towel to try to remove as much moisture as possible. Heat your pasta sauce on the stove and put the noodles in for 30-45 seconds. If you leave them in much longer they will become mushy [place] and/or coconut flour instead of regular flour For pizza dough, try fathead pizza dough recipe online. To get a crispy crust, bake on one side for 8-12 min, then flip over and bake on the other side for 8-12 min, then put toppings on and bake until the cheese on top of pizza melts chaffles recipe online For ice cream, try the brand Enlightened To replace coffee creamer and make it low carb, use heavy creamer with sugar free [place] sweetener For chips, try Whisps or pork rinds For yogurt, try Two Good bul[place] yogurt Use Pinterest for recipe ideas. Type in low carb... Assessment & Plan (09/19/2020 11:41 AM [employer] BUSINESS ANALYST): HPI: Condition is worsening A&P: Healthy, low carbohydrate lifestyle and exercise for 150min/week recommended Substitutions: Recommend tracking everything you put in your mouth on an doris like [employer] carries a zero net carb bread If you are looking for whole potatoes, like to use in soup or new potato shape/flavor, radishes are a great replacement If you are looking for mashed potatoes, riced cauliflower in the frozen bag section are a great replacement For pasta, try using zucchini noodles, lay them out on a cookie sheet and pat dry with a tea towel to try to remove as much moisture as possible. Heat your pasta sauce on the stove and put the noodles in for 30-45 seconds. If you leave them in much longer they will become mushy [place] and/or coconut flour instead of regular flour For pizza dough, try fathead pizza dough recipe online. To get a crispy crust, bake on one side for 8-12 min, then flip over and bake on the other side for 8-12 min, then put toppings on and bake until the cheese on top of pizza melts chaffles recipe online For ice cream, try the brand Enlightened To replace coffee creamer and make it low carb, use heavy creamer with sugar free Torani sweetener For chips, try Whisps or pork rinds For yogurt, try Two Good bul[place] yogurt Use Pinterest for recipe ideas. Type in low carb... Assessment & Plan (08/21/2020 7:34 AM [employer] BUSINESS ANALYST): HPI: Condition is stable A&P: Healthy, low carbohydrate lifestyle and exercise for 150min/week recommended Substitutions: Recommend tracking everything you put in your mouth on an doris like [employer] carries a zero net carb bread If you are looking for whole potatoes, like to use in soup or new potato shape/flavor, radishes are a great replacement If you are looking for mashed potatoes, riced cauliflower in the frozen bag section are a great replacement For pasta, try using zucchini noodles, lay them out on a cookie sheet and pat dry with a tea towel to try to remove as much moisture as possible. Heat your pasta sauce on the stove and put the noodles in for 30-45 seconds. If you leave them in much longer they will become mushy [place] and/or coconut flour instead of regular flour For pizza dough, try fathead pizza dough recipe online. To get a crispy crust, bake on one side for 8-12 min, then flip over and bake on the other side for 8-12 min, then put toppings on and bake until the cheese on top of pizza melts chaffles recipe online For ice cream, try the brand Enlightened To replace coffee creamer and make it low carb, use heavy creamer with sugar free [place]ani sweetener For chips, try Whisps or pork rinds For yogurt, try Two Good bul[place] yogurt Use Pinterest for recipe ideas. Type in low carb... Immunizations Name Administration Dates Next Due DTP 10/01/1993 HiB 10/01/1993 Influenza, Unspecified 06/20/2024(Deferr ed: Patient Refused),06/20/2024(Deferred: Patient Refused),03/31/2024(Deferred: Allergy),07/01/2023(Deferred: Patient Refused),05/27/2023(Deferred: Patient Refused),04/22/2022(Deferred: Patient Refused),06/11/2021(Deferred: Patient Refused),04/29/2021(Deferred: Patient Refused),04/11/2021(Deferred: Patient Refused),04/11/2020(Deferred: Patient Refused),03/12/2020(Deferred: Patient Refused),03/12/2020(Deferred: Patient Refused) MMR 05/28/2020(Deferred: No longer needed),06/15/2018(Deferred: No longer needed),05/08/2015,10/01/1993 OPV 10/01/1993 PPD TEST 05/05/2021 Pfizer SARS-CoV-2 Monovalent Vaccination (12+ Yrs) PURPLE 04/29/2021,04/29/2021,04/08/2021,2020 Tdap 04/30/2020,05/10/2018,05/08/2015 Social History Tobacco Use Types Packs/Day Years Used Date Smoking Tobacco: Every Day Cigarettes 0.5 11.2 Started: 06/14/2013 Smokeless Tobacco: Never Tobacco Cessation:Ready to Q uit: Not Asked; Counseling Given: Not Answered Alcohol Use Standard Drinks/Week Comments No 0 [...] on file Legal Sex Female 9:40 AM [employer] BUSINESS ANALYST Gender Identity Female 11/06/2020 8:35 AM CDT Sexual Orientation Straight 10/22/2021 2: 52 PM CDT Last Filed Vital Signs Vital Sign Reading Time Taken Comments Blood Pressure 130/86 06/20/2024 2:22 PM [employer] BUSINESS ANALYST Pulse 79 06/20/2024 2:22 PM [employer] BUSINESS ANALYST Temperature 37 ??C (98.6 ??F) 06/20/2024 2:22 PM [employer] BUSINESS ANALYST Respiratory Rate 16 06/20/2024 2:22 PM [employer] BUSINESS ANALYST Oxygen Saturation 97% 06/20/2024 2:22 PM [employer] BUSINESS ANALYST Inhaled Oxygen Concentration - - Weight 79.2 kg (174 lb 8 oz) 06/20/2024 2:22 PM [employer] BUSINESS ANALYST Height 157.5 cm (5' 2.01 ) 06/20/2024 2:22 PM CS T Body Mass Index 31.91 06/20/2024 2:22 PM [employer] BUSINESS ANALYST Plan of Treatment Not on file Procedures Procedure Name Priority Date/Time Associated Diagnosis Comments POC INFLUENZA A/B, COVID-19 ANTIGEN Routine 06/20/2024 2:40 PM [employer] BUSINESS ANALYST Acute cough PAP AND HIGH RISK HPV, REFLEX TO GENOTYPING Routine 07/09/2020 from Last 3 Months or Most Recently Relevant to Health Maintenance Results * POC Influenza A/B, COVID-19 antigen (06/20/2024 2:40 PM [employer] BUSINESS ANALYST) Influenza A Ag, POC Negative Negative [facility] Influenza B Ag, POC Negative Negative [facility] COVID-19 Ag POC Presumptive Negative Presumptive Negative, Invalid [facility] Nasopharyngeal 06/20/2024 2: 40 PM [employer] BUSINESS ANALYST us Rufino Rosas MD POINT OF CARE TEST WOJCIECH GOSS Final Result [facility] [address] [facility] [facility] [address] [place] [address] * Pap and High Risk HPV, reflex to Genotyping (07/09/2020) Thin prep 07/09/2020 Narrative Skyla Walker MA - 07/11/2020 RESULTS SENT TO SCANNING TO BE PLACED IN CHART Historical Provider LAB CYTOLOGY ORDERABLES F inal Result from Last 3 Months or Most Recently Relevant to Health Maintenance Insurance [facility] [id number] [place] [address] [facility] Advance Directives For more information, please contact: [phone] * Full Code (Latest Code Status on File) Date Activated Date Inactivated Comments 05/26/2020 1:20 PM 05/29/2020 6:58 AM * Full Code Date Activated Date Inactivated Comments 05/25/2020 7:49 PM 05/26/2020 1:20 PM Full CPR i n case of cardiopulmonary arrest * Full Code Date Activated Date Inactivated Comments 06/14/2018 5:07 PM 06/15/2018 8:51 PM * Full Code Date Activated Date Inactivated Comments 06/14/2018 6:35 AM 06/14/2018 5:07 PM Full CPR in case of cardiopulmonary arrest Care Teams Informatics Specialist Relationship Specialty Start Date End Date Rita Spencer NP [address] [place] [address] PCP - General Family Medicine 07/07/22 Dejuan Garcia MD [address] [place] [address] Consulting Physician Obstetrics and Gynecology 03/02/22
--- OUTSIDE RECORDS SUMMARY | 2024-08-15 11:19 | XMS_ITS | Clinical Summary ---
Author Organization [facility] Address [address] [place] [address] Care Team Providers Care Screwhead Polisher Name Role Phone Dejuan Garcia MD Unavailable + [phone] Rita Spencer NP Primary Care Provider + [phone] Allergies Active Allergy Reactions Criticality Noted Date Comments Influenza Virus Vaccines Other (See comments) High Reaction: OTHER REACTION, Pneumococcal 23-Callie Ps Vaccine Other (See comments) Low 11/16/2018 Medications cholecalciferol (VITAMIN D-3) 5,000 unit capsule Take 1 capsule (5,000 Units total) by mouth daily 90 capsule 3 07/04/20 20 Active cetirizine (ZyrTEC) 10 mg tablet [...] rosuvastatin (CRESTOR) 20 mg tabletIndications: History of [place] (myocardial infarction) Take 1 tablet (20 mg [...] in your mouth on an doris like [email or web address] Hand Measurements: A fist or cupped hand [...] in your mouth on an doris like [email or web address] Hand Measurements: A fist or cupped hand [...] in your mouth on an doris like Zindigopal Hand Measurements: A fist or cupped hand [...] -Discussed importance of well-balanced diet. History of [place] (myocardial infarction) 08/10/2023 Assessment & Plan (04/03/2024 [...] cessation Assessment & Plan (08/25/2023 9:10 AM LIVESTOCK LABORER): -occurred in July 2023 -continue on aspirin 81 mg daily, atorvastatin 40 mg nightly, clopidogrel 75 mg daily, and metoprolol XL 25 mg daily -continue follow up with Cardiology -advised patient go to ED if experiencing chest pain -encouraged smoking cessation Assessment & Plan (08/10/2023 12:24 PM LIVESTOCK LABORER): Acute problem- this is a new problem-onset [...] improve her sleep -refer to Psychiatry at [facility] -advised patient to keep appointment with therapist Alcohol use 07/07/2022 Assessment & Plan (07/07/2022 3:38 PM LIVESTOCK LABORER): -recommended that patient stop drinking alcohol -patient [...] on meds mid to late February until Come off of meds if possible during the winter Anxiety 02/25/2021 Assessment & Plan (08/25/2023 9:13 AM LIVESTOCK LABORER): -chronic, stable- patient recently stopped her citalopram [...] with therapist. -referral sent to Psychiatry at [facility] for medication management and ADHD evaluation Assessment & Plan (07/07/2022 3:39 PM LIVESTOCK LABORER): Patient reiterated no suicidal thoughts at this [...] bedtime Assessment & Plan (09/10/2021 4:07 PM LIVESTOCK LABORER): Patient reiterated no suicidal thoughts at this [...] bedtime. Assessment & Plan (06/11/2021 4:13 PM LIVESTOCK LABORER): Patient reiterated no suicidal thoughts at this [...] your phone. Examples would be headspace, calm, [id number], Personal Mike. Please work on this every [...] hot dogs, no MSG as found in pakistani food, no more than 1/2 banana a [...] up Assessment & Plan (08/21/2020 10:31 AM LIVESTOCK LABORER): HPI: Condition is stable patient having a [...] hot dogs, no MSG as found in pakistani food, no more than 1/2 banana a [...] Please start taking probiotic 20-50billion CFU daily detention. This will help maintain the good bacteria that is in your gut. Assessment & Plan (06/25/2020 4:46 PM LIVESTOCK LABORER): Pt having headaches for 7 days a [...] hot dogs, no MSG as found in pakistani food, no more than 1/2 banana a day, no artificial sweeteners, fresh bread (less than 24 hours old); drink lots of water. See me back in 1 mo to discuss the headache diary. Severe episode of recurrent major depressive disorder, without psychotic features 06/25/2020 Assessment & Plan (08/25/2023 9:13 AM LIVESTOCK LABORER): -chronic, stable- patient recently stopped her citalopram [...] with therapist. -referral sent to Psychiatry at [facility] for medication management and ADHD evaluation Assessment & Plan (07/07/2022 3:38 PM LIVESTOCK LABORER): Patient reiterated no suicidal thoughts at this [...] bedtime Assessment & Plan (09/10/2021 4:08 PM LIVESTOCK LABORER): Patient reiterated no suicidal thoughts at this [...] bedtime. Assessment & Plan (06/11/2021 4:13 PM LIVESTOCK LABORER): Patient reiterated no suicidal thoughts at this [...] to help with anxiety. Today, have your [id number] watch your kids overnight. I need you to get some sleep. Please take two of the buspirone 10mg tablets about 8pm today with goal of going to bed at 9pm. This double dose is a one time dose. Starting tomorrow only take 1 tablet twice daily. Return in 2 wks. List of counselors given. Assessment & Plan (06/25/2020 4:08 PM LIVESTOCK LABORER): She says she feels fine, then will start balling 20-30 times a day. 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 Dr. Garcia (BRUSH HOLDER ASSEMBLER) is treating this with Paroxetine 10mg daily. She feels normal on the medication. No longer having the crying episodes. Mild intermittent asthma without complication Assessment & Plan (06/25/2020 4:10 PM LIVESTOCK LABORER): HPI: Condition is stable A&P: Discussed/ordered labs, [...] needed Assessment & Plan (06/25/2020 5:08 PM LIVESTOCK LABORER): Ibuprofen as needed Chronic bilateral thoracic back pain 06/25/2020 Assessment & Plan (06/25/2020 5:07 PM LIVESTOCK LABORER): Ibuprofen as needed Scoliosis 06/25/2020 Assessment & Plan (06/25/2020 5:07 PM LIVESTOCK LABORER): Ibuprofen as needed Tobacco abuse 06/25/2020 Assessment & Plan (08/25/2023 9:13 AM LIVESTOCK LABORER): Patient aware of risks of tobacco use up to and including . Patient does not have interest in quitting at this time. Recommend smoking cessation. Assessment & Plan (08/10/2023 12:21 PM LIVESTOCK LABORER): Chronic problem She was advised to quit smoking; the risks of continued tobacco use discussed. Assessment & Plan (10/22/2021 3:14 PM CDT): Pt was smoker - would benefit from quitting as its likely worsening URIs Assessment & Plan (09/10/2021 4:06 PM LIVESTOCK LABORER): Patient states she has not smoked for [...] you. Assessment & Plan (08/21/2020 10:33 AM LIVESTOCK LABORER): Decreased to 8 cig/day. She is trying to quit. 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 Caldera (opthalmologist) Was seeing neurologist but only went once-was told she was having migraines because she was too fat Assessment & Plan (08/21/2020 10:28 AM LIVESTOCK LABORER): Pt sees Lorenza guzman once a year in February She has seen opthalmologist in the past and was sent to have MRI and neurology. She was not happy with the neurologist or the other chemist instrumentation she saw. She doesn't want to see another one. Assessment & Plan (06/25/2020 4:44 PM LIVESTOCK LABORER): Pt sees [facility] optical once a year. She has seen chemist instrumentation in the past and was sent to have MRI and neurology, she was not happy with the neurologist and other chemist instrumentation she was. We will have pt f/u with ophthalmology again. 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 She has seen chemist instrumentation in the past and was sent to have MRI and neurology, she was not happy with the neurologist and other chemist instrumentation she was. We will have pt f/u with ophthalmology again. Resolved Problems Problem Noted Date Diagnosed Date Resolved Date Hospital discharge follow-up 08/10/2023 08/25/2023 Assessment & Plan (08/10/2023 12:26 PM LIVESTOCK LABORER): I personally reviewed H and P documentation, [...] activity unless she is cleared from her tray line worker. 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 Assessment & Plan (07/07/2022 7:40 AM LIVESTOCK LABORER): HPI: Condition is not at/near goal goal BMI <30 A&P: Healthy, high-protein, lower carbohydrate, lower fat lifestyle and exercise for 150min/week recommended Recommend tracking everything you put in your mouth on an doris like [email or web address] Hand Measurements: A fist or cupped hand [...] in your mouth on an doris like [employer] Lower carb substitutions: Aldi carries a zero [...] in much longer they will become mushy Orange and/or coconut flour instead of regular flour [...] pork rinds For yogurt, try Two Good anguillan yogurt Use [place] for recipe ideas. Type [...] in your mouth on an doris like [employer] Lower carb substitutions: Aldi carries a zero [...] in much longer they will become mushy Orange and/or coconut flour instead of regular flour [...] pork rinds For yogurt, try Two Good anguillan yogurt Use Pinterest for recipe ideas. Type [...] in your mouth on an doris like [employer]push[employer] or [employer] carries a zero net carb bread If [...] in much longer they will become mushy Orange and/or coconut flour instead of regular flour [...] pork rinds For yogurt, try Two Good anguillan yogurt Use P[employer] for recipe ideas. Type in low carb... Assessment & Plan (10/22/2021 3:13 PM CDT): Not at goal - diet and lifestyle modifcations Assessment & Plan (09/10/2021 8:38 AM LIVESTOCK LABORER): HPI: Condition is not at/near goal goal BMI <30 A&P: Healthy, high-protein, lower carbohydrate, lower fat lifestyle and exercise for 150min/week recommended Substitutions: Recommend tracking everything you put in your mouth on an doris like [employer]push.com or Go Try It On Aldi carries a zero net carb bread [...] in much longer they will become mushy Orange and/or coconut flour instead of regular flour [...] pork rinds For yogurt, try Two Good anguillan yogurt Use Pinterest for recipe ideas. Type in low carb... Assessment & Plan (06/11/2021 4:14 PM LIVESTOCK LABORER): HPI: Condition is not at/near goal goal BMI <30 A&P: Healthy, high-protein, lower carbohydrate, lower fat lifestyle and exercise for 150min/week recommended Substitutions: Recommend tracking everything you put in your mouth on an doris like [employer]push.com or Go Try It On Aldi carries a zero net carb bread [...] in much longer they will become mushy Orange and/or coconut flour instead of regular flour [...] pork rinds For yogurt, try Two Good anguillan yogurt Use Pinterest for recipe ideas. Type in low carb... Assessment & Plan (04/29/2021 12:21 PM CDT): HPI: Condition is not at/near goal goal BMI <30 A&P: Healthy, high-protein, lower carbohydrate, lower fat lifestyle and exercise for 150min/week recommended Substitutions: Recommend tracking everything you put in your mouth on an doris like [employer]push.com or Go Try It On Aldi carries a zero net carb bread [...] in much longer they will become mushy Orange and/or coconut flour instead of regular flour [...] pork rinds For yogurt, try Two Good anguillan yogurt Use Pinterest for recipe ideas. Type in low carb... Assessment & Plan (02/25/2021 2:31 PM CDT): HPI: Condition is improving, but not at goal goal BMI <30 A&P: Healthy, high-protein, lower carbohydrate, lower fat lifestyle and exercise for 150min/week recommended Substitutions: Recommend tracking everything you put in your mouth on an doris like [employer]push[employer]com or Go Try It On Aldi carries a zero net carb bread [...] in much longer they will become mushy Orange and/or coconut flour instead of regular flour [...] pork rinds For yogurt, try Two Good anguillan yogurt Use Pinterest for recipe ideas. Type in low carb... Assessment & Plan (01/07/2021 8:43 AM CDT): HPI: Condition is not at/near goal goal BMI <30 A&P: Healthy, high-protein, lower carbohydrate, lower fat lifestyle and exercise for 150min/week recommended Substitutions: Recommend tracking everything you put in your mouth on an doris like [employer]push.com or Go Try It On Aldi carries a zero net carb bread [...] in much longer they will become mushy Orange and/or coconut flour instead of regular flour [...] pork rinds For yogurt, try Two Good anguillan yogurt Use Pinterest for recipe ideas. Type in low carb... Assessment & Plan (12/24/2020 4:04 PM CDT): HPI: Condition is not at/near goal goal BMI <30 A&P: Healthy, high-protein, lower carbohydrate, lower fat lifestyle and exercise for 150min/week recommended Substitutions: Recommend tracking everything you put in your mouth on an doris like [employer]push.com or Go Try It On Aldi carries a zero net carb bread [...] in much longer they will become mushy Orange and/or coconut flour instead of regular flour [...] pork rinds For yogurt, try Two Good anguillan yogurt Use Pinterest for recipe ideas. Type in low carb... Assessment & Plan (11/26/2020 1:35 PM CDT): HPI: Condition is improving, but not at goal Going to the gym A&P: Healthy, low carbohydrate lifestyle and exercise for 150min/week recommended Substitutions: Recommend tracking everything you put in your mouth on an doris like [employer]push[employer]com or Go Try It On Aldi carries a zero net carb bread [...] in much longer they will become mushy Orange and/or coconut flour instead of regular flour [...] pork rinds For yogurt, try Two Good anguillan yogurt Use Pinterest for recipe ideas. Type in low carb... Assessment & Plan (10/03/2020 9:45 AM CDT): HPI: Condition is Not at goal A&P: Healthy, low carbohydrate lifestyle and exercise for 150min/week recommended Substitutions: Recommend tracking everything you put in your mouth on an doris like [employer]push.com Aldi carries a zero net carb bread [...] in much longer they will become mushy Orange and/or coconut flour instead of regular flour [...] pork rinds For yogurt, try Two Good anguillan yogurt Use Pinterest for recipe ideas. Type in low carb... Assessment & Plan (09/19/2020 11:41 AM LIVESTOCK LABORER): HPI: Condition is worsening A&P: Healthy, low carbohydrate lifestyle and exercise for 150min/week recommended Substitutions: Recommend tracking everything you put in your mouth on an doris like [employer]push.com Aldi carries a zero net carb bread [...] in much longer they will become mushy Orange and/or coconut flour instead of regular flour [...] pork rinds For yogurt, try Two Good anguillan yogurt Use Pinterest for recipe ideas. Type in low carb... Assessment & Plan (08/21/2020 7:34 AM LIVESTOCK LABORER): HPI: Condition is stable A&P: Healthy, low carbohydrate lifestyle and exercise for 150min/week recommended Substitutions: Recommend tracking everything you put in your mouth on an doris like [employer]push[employer]com Aldi carries a zero net carb bread [...] in much longer they will become mushy Orange and/or coconut flour instead of regular flour [...] pork rinds For yogurt, try Two Good anguillan yogurt Use Pinterest for recipe ideas. Type in low carb... Encounters Date Type Department Care Team Description 08/14/2024 Telephone [facility] at [address] [phone] Rita Spencer NP 06/27/2024 Orders Only [facility] at [address] [phone] Rita Spencer NP Rash (Primary Dx) 06/26/2024 Telephone [facility] Primary Care at [address] [phone] Rita Spencer NP 06/20/2024 2:15 PM LIVESTOCK LABORER Office Visit [facility] at [address] [phone] Rufino Rosas MD Referred otalgia of both ears (Primary Dx); Acute cough from Last 3 Months Immunizations Name Administration Dates Next Due DTP 10/01/1993 HiB 10/01/1993 Influenza, Unspecified 06/20/2024(Deferr ed: Patient Refused),06/20/2024(Deferred: Patient Refused),03/31/2024(Deferred: Allergy),07/01/2023(Deferred: Patient Refused),05/27/2023(Deferred: Patient Refused),04/22/2022(Deferred: Patient Refused),06/11/2021(Deferred: Patient Refused),04/29/2021(Deferred: Patient Refused),04/11/2021(Deferred: Patient Refused),04/11/2020(Deferred: Patient Refused),03/12/2020(Deferred: Patient Refused),03/12/2020(Deferred: Patient Refused) MMR 05/28/2020(Deferred: No longer needed),06/15/2018(Deferred: No longer needed),05/08/2015,10/01/1993 OPV 10/01/1993 PPD TEST 05/05/2021 Pfizer SARS-CoV-2 Monovalent Vaccination (12+ Yrs) PURPLE 04/29/2021,04/29/2021,04/08/2021,2020 Tdap 04/30/2020,05/10/2018,05/08/2015 Surgical History Surgery Date Site/Laterality Comments TONSILLECTOMY/ADENOIDECTOMY SECTION 05/26/2020 TUBAL LIGATION Medical History Medical History Date Comments Asthma used inhaler las t week Scoliosis Urinary tract infection frequent depression was on Wel butrin for a couple months after 1st baby Heart disease heart murmurs Migraine with aura and witho ut status migrainosus, not intractable 06/25/2020 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 Motion sickness GERD (gastroesophageal reflux disease) Class 1 obesity without seri ous comorbidity with body mass index (BMI) of 32.0 to 32.9 in adult Family History Medical History Relation Name Comments Asthma Father Diabetes Maternal Grandfather Diabetes Maternal Grandmother Diabetes Mother Pulmonary embolism Mother No Known Problems Sister Relation Name Status Comments Father Alive Maternal Grandfather Maternal Grandmother Mother Alive Sister Alive Social [...] on file Legal Sex Female 9:40 AM LIVESTOCK LABORER Gender Identity Female 11/06/2020 8:35 AM CDT Sexual Orientation Straight 10/22/2021 2: 52 PM CDT Obstetrics History Para Term AB IAB SAB Ectopic Multiple Livin g Live Births 6 4 4 0 2 0 4 4 Date Outcome GA Total Labor Labor/2nd/3rd Weight Sex Type Anes PTL Linda A1 A5 Name Clin Term Term AB AB 2017 Term 39w 0d 4h 07m 3h 51m/0h 13m/0h 03m 2.794 kg (6 lb 2.6 oz) F Vag-S pont Epidur al N Livin g 9 9 CHRISTIANE ,GIRL ANDREY CA Racquel Garcia MD Complications:None Delivery Location[facility] 2019 Term 39w 2d 0h 01m 0h 01m 2.986 kg (6 lb 9.3 oz) M CS-LT ranv Epidur al N Livin g 6 7 CHRISTIANE ,BOYJ ESSIC A Raqcuel Garcia MD Complications: Intolera nce Delivery Location:[facility] Last Filed Vital Signs Vital Sign Reading Time Taken Comments Blood Pressure 130/86 06/20/2024 2:22 PM LIVESTOCK LABORER Pulse 79 06/20/2024 2:22 PM LIVESTOCK LABORER Temperature 37 ??C (98.6 ??F) 06/20/2024 2:22 PM LIVESTOCK LABORER Respiratory Rate 16 06/20/2024 2:22 PM LIVESTOCK LABORER Oxygen Saturation 97% 06/20/2024 2:22 PM LIVESTOCK LABORER Inhaled Oxygen Concentration - - Weight 79.2 kg (174 lb 8 oz) 06/20/2024 2:22 PM LIVESTOCK LABORER Height 157.5 cm (5' 2.01 ) 06/20/2024 2:22 PM CS T Body Mass Index 31.91 06/20/2024 2:22 PM LIVESTOCK LABORER Plan of Treatment Health Maintenance Due Date Last Done Comments Hepatitis C Screening 1992 Hepatitis B Screening 01/02/2010 Cervical Cancer Screening 07/09/2021 07/09/2020 Covid-19 Vaccine ( season) 2024 01/29/2022, 04/29/2021, 04/29/2021, Additional history exists Regular Well Visit/Exam 18-64 08/25/2024 08/25/2023, 04/29/2021 Depression Screening 06/20/2025 06/20/2024, 03/31/2024, 01/07/2024, Additional history exists DTaP/Tdap/Td Vaccine (5 - Td or Tdap) 04/30/2030 04/30/2020, 05/10/2018, 05/08/2015, Additional history exists HPV Vaccines Aged Out No longer eligi ble based on patient's age to complete this topic Influenza Vaccine Discontinued Pneumococcal vaccine <65 Discontinued Varicella Vaccines Discontinued Procedures Procedure Name Priority Date/Time Associated Diagnosis Comments POC INFLUENZA A/B, COVID-19 ANTIGEN Routine 06/20/2024 2:40 PM LIVESTOCK LABORER Acute cough PAP AND HIGH RISK HPV, REFLEX TO GENOTYPING Routine 07/09/2020 from Last 3 Months or Most Recently Relevant to Health Maintenance Results * POC Influenza A/B, COVID-19 antigen (06/20/2024 2:40 PM LIVESTOCK LABORER) Influenza A Ag, POC Negative Negative [facility] Influenza B Ag, POC Negative Negative [facility] COVID-19 Ag POC Presumptive Negative Presumptive Negative, Invalid [facility] Nasopharyngeal 06/20/2024 2: 40 PM LIVESTOCK LABORER us Rufino Rosas MD POINT OF CARE TEST WOJCIECH GOSS Final Result [facility] [address] [facility] [address] [place] [address] * Pap and High Risk HPV, reflex to Genotyping (07/09/2020) Thin prep 07/09/2020 Narrative Skyla Walker MA - 07/11/2020 RESULTS SENT TO SCANNING TO BE PLACED IN CHART us Historical Provider MD LAB CYTOLOGY ORDERABLES F inal Result from Last 3 Months or Most Recently Relevant to Health Maintenance Insurance [facility] [address] [place] [address] [facility] Advance Directives For more information, please contact: [phone] * Full Code (Latest Code Status on [...] in case of cardiopulmonary arrest Care Teams Screwhead Polisher Relationship Specialty Start Date End Date Rita Spencer NP [address] [place] [address] PCP - General Family Medicine 07/07/22 Dejuan Garcia MD [address] [place] [address] Consulting Physician Obstetrics and Gynecology 03/02/22
== END 2024-08-15 11:19 | disposition home or self-care (01) ==
PROVIDERS: Emergency Provider Nurse Practitioner Family
DX: J01.90 Acute sinusitis, unspecified (principal); Z79.82 Long term (current) use of aspirin; I25.2 Old myocardial infarction
CPT/HCPCS: 99213; G0463

== ENCOUNTER 2025-03-01 08:43 | Emergency (ER) | payer OTHER, SELFPAY ==
[2025-03-01 08:54] VITALS: BP 124/75; PULSE 92; RESP 16; TEMP 36.6; O2SAT 99
--- OUTSIDE RECORDS SUMMARY | 2025-03-01 08:56 | XMS_ITS ---
Author Organization [facility] Address [address] [facility] [place] [address] Phone Care Team Providers Care Supervisor Fertilizer Name Role Phone Rita Spencer APRN, DIABETOLOGIST Primary Care Provi lynne Marisela Marie APRN, DIABETOLOGIST Unavailable Ev Tarango DO Unavailable OnCall Chronic Condition Monitoring Status:Enrolled (Active) Start date:08/09/2024 Enrollment date:08/09/2024 Related social drivers of health:Intimate Partner Violence, Social Connections, Tobacco Use, Financial Resource Strain, Depression, Stress, Food Insecurity Continued Care and Services Coordination
--- OUTSIDE RECORDS SUMMARY | 2025-03-01 08:56 | XMS_ITS | Clinical Summary ---
Author Organization [facility] Address [address] [facility], [place] [address] Phone Care Team Providers Care Welding Pantograph Operator Name Role Phone Rita Spencer OVERNIGHT CASHIER, ADMIN SECRETARY Primary Care Provi lynne Marisela Marie APRN, ADMIN SECRETARY Unavailable TarangoEv baron DO Unavailable Allergies Active Allergy Reactions Criticality Noted Date Comments Doxycycline Rash 11/15/2023 Hands swells, turn red, and itched Influenza Virus Vaccine Other (see Comments) Pneumococcal Vaccines Other (see Comments) 02/2019 Medications fluticasone (FLONASE) 50 MCG/ACT Suspension 1-2 Sprays by Nasal route daily as needed. Use in each nostril as directed. Active busPIRone (BUSPAR) 15 MG Tablet Take 15 mg by mouth 2 times daily as needed for Anxiety. 05/07/20 23 Active nicotine (NICODERM CQ) 21 MG/24HR PATCH 24 HR 1 Patch by Transdermal route daily as needed for Other (Nicotine dependency). 30 Patch 08/04/19 24 Active Additional Information Patient not taking.Reported on 01/15/2025 ALPRAZolam (XANAX) 0.5 MG TabletIndications: Coronary artery disease involving [place] coronary artery of [place] heart with angina pectoris (HCC) Take 1 Tablet by mouth once as needed for Anxiety (Take the day of your cath) for up to 1 dose. 1 Tablet 11/28/19 25 Active albuterol (Ventolin HFA) 108 (90 Base) MCG/ACT Aerosol SolutionIndication s:Tobacco dependence take 1-2 Puffs by inhalation every 6 hours as needed for Wheezing. 18 g 1 11/28/19 25 Active spironolactone (ALDACTONE) 100 MG Tablet Take 100 mg by mouth daily. 12/22/19 25 Active metoprolol Succinate (TOPROL-XL) 50 MG TABLET SR [address] ory of [address] elevation myocardial infarction (STEMI),Coronary artery disease involving [place] coronary artery of [place] heart with angina pectoris (HCC) Take 1 Tablet by mouth daily. 90 Tablet 3 01/16/20 25 Active aspirin 81 MG Chewable TabletIndications: History of ST elevation myocardial infarction (STEMI),Coronary artery disease involving [place] coronary artery of [place] heart with angina pectoris (HCC) Take 1 Tablet by mouth daily for 360 days. 01/16/20 25 026 Active rosuvastatin (Crestor) 20 MG TabletIndications: History of ST elevation myocardial infarction (STEMI),Coronary artery disease involving [place] coronary artery of [place] heart with angina pectoris (HCC),Mixed hyperlipidemia Take 1 Tablet by mouth daily. 90 Tablet 3 01/16/20 25 Active docusate sodium (COLACE) 100 MG Capsule Take 1 Capsule by mouth 2 times daily as needed for Constipation - 1st line. 180 Capsule 3 01/16/20 25 Active Active Problems Problem Noted Date Diagnosed Date Coronary artery disease invo lving [place] coronary artery of [place] heart with angina pectoris 11/27/2024 Mixed hyperlipidemia 11/27/2024 Abnormal stress test 11/17/2024 Moderate obesity 08/04/[address] elevation myocardial infarction (S FABIOLA) 08/03/2023 Tobacco dependence 08/03/2023 Asthma 08/03/2023 Encounters Date Type Department Care Team Description 01/15/2025 9:00 AM CDT Office Visit [facility] - Cardiology [facility] [address] [place] [address] Ev Tarango DO History of ST elevation myocardial infarction (STEMI) (Primary Dx); Coronary artery disease involving [place] coronary artery of [place] heart with angina pectoris (HCC); Abnormal stress test; Mixed hyperlipidemia; Tobacco dependence; ST elevation myocardial infarction (STEMI), unspecified artery (HCC) Discharge Disposition: Discharged to home or Selfcare 01/15/2025 Travel 12/05/2024 7:50 AM CDT - 12/05/2024 9:15 AM CDT Surgery [facility] [address] [place] [address] Emerita Ring MD CARDIAC CATH 12/05/2024 6:32 AM CDT - 12/05/2024 12:16 PM CDT Hospital Encounter [facility] [address] [place] [address] Emerita Ring MD Abnormal stress test Discharge Disposition: Discharged to home or Selfcare 12/05/2024 Results Follow-Up [facility] Card[facility] [address] [place] [address] Ev Tarango, PROTIME (PT) (PROTHROMBIN TIME), CMP (Comprehensive Metabolic Panel), Hemoglobin A1C w/ Estimated Glucose, Additional followed-up results: 2 12/05/2024 Travel from Last 3 Months Family History Medical History Relation Name Comments Asthma Father Diabetes Maternal Grandmother Diabetes Mother Heart Attack Mother No Known Problems Sister Relation Name Status Comments Father Alive Maternal Grandmother Mother Alive Sister Alive Social History Tobacco Use Types Packs/Day Years Used Date Smoking Tobacco: Every Day Cigarettes 1 12.6 Started: 07/12/2012 Smokeless Tobacco: Never Tobacco Cessation:Ready to Q uit: Not Asked; Counseling Given: Not Answered Alcohol Use Standard Drinks/Week Comments Yes 0 (1 standard drink = 0.6 oz pur e alcohol) 1 drink a month [facility] Utilities Answer Date Recorded In the past 12 months has [employer], gas, oil, or water company threatened to shut off services in your home? No 08/03/2023 Social Connection and Isolation Panel Answer Date Recorded In a typical week, how many times do you talk on the phone with family, friends, or neighbors? More than three times a week 08/03/2023 How often do you get togethe r with friends or relatives? More than three times a week 08/03/2023 How often do you attend chur ch or mu-ism services? Never 08/03/2023 Do you belong to any clubs o r organizations such as quaker groups, unions, fraternal or athletic groups, or [...] place to sleep or slept in a longterm (including now)? No 08/03/2023 Sexually Active Control Partners Comments Yes Surgical Male Comments No Sex and Gender Information Value Date Recorded Sex Assigned at Not on file Legal Sex Female 11:11 PM CDT Gender Identity Not on file Sexual Orientation Not on file Last Filed Vital Signs Vital Sign Reading Time Taken Comments Blood Pressure 124/70 01/15/2025 9:11 AM CDT Pulse 78 01/15/2025 9:11 AM CDT Temperature 36.3 C (97.4 F) 01/15/2025 9:11 AM CDT Respiratory Rate 16 01/15/2025 9:11 AM CDT Oxygen Saturation 99% 01/15/2025 9:11 AM CDT Inhaled Oxygen Concentration - - Weight 81.2 kg (179 lb) 01/15/2025 9:11 AM CDT Height 154.9 cm (5' 1) 01/15/2025 9:11 AM CDT Body Mass Index 33.82 01/15/2025 9:11 AM CDT Plan of Treatment Upcoming Encounters Date Type Department Care Team (Late st Contact Info) Description 07/23/2025 10:30 AM DRUG AND ALCOHOL COUNSELLOR Office Visit [facility] - Cardiology [facility] [address] [place] [address] Ev Tarango, DO [address] [address] Health Maintenance Due Date Last Done Comments Hepatitis C Virus (HCV) Screening 1992 Hepatitis B Immunization (1 of 3 - 19+ 3-dose series) 01/02/2011 Pneumococcal Immunization Combined (1 of 2 - PCV) 01/02/2011 Pap Smear 01/02/2013 Human Papillomavirus (HPV) Immunization (1 - 3-dose SCDM series) 01/02/2019 Cervical Cancer Screening (CCS) 01/02/2022 HPV/Cotest 01/02/2022 SARS-COV-2 Immunization ( season) 2024 01/29/2022, 04/29/2021, 04/08/2021 Influenza Immunization (#1) 2025 Respiratory Syncytial Virus (RSV) Immunization (Adult) (1 - 1-dose 75+ series) 01/02/2067 DTaP/Tdap/Td Immunization Discontinued 2019, 05/10/2018, 05/08/2015, Additional history exists TdaP Immunization Completed 04/30/2020, , 05/08/2015 Diabetes: Hemoglobin A1c Discontinued 12/05/2024, 07/13 Meningococcal Immunization (ACWY) Aged Out No longer eligible based on patient's age to complete this topic Rotavirus Immunization Aged Out No lo nger eligible based on patient's age to complete this topic Medical Devices Implanted Type Area Cyber Analyst Device Identifier Shelf Expiration Date Model / Serial / Lot System Coronary Stent Xience Skypoint Everolimus Eluting 3.50 Mm X 23 Mm / Rapid-Exchange - [id number] Implanted:Qty: 1 on 08/03/2023 by Syeda Morris MD PhD at [facility] IMPLANT N/A: Coronary [employer] [id number] 08/23/2025 [id number] / / [id number] Device Clsr 70cm 6fr Angio-Seal Vip .035in Vasc Collagen Valuelink Gw Insertion [facility] J Cutter In - [id number] Implanted:Qty: 1 on 08/03/2023 by Syeda Morris MD PhD at [facility] IMPLANT N/A: [employer] [id number] 12/29/2023 [id number] / / [id number] Procedures Procedure Name Priority Date/Time Associated Diagnosis Comments CARDIAC CATH Routine 12/05/2024 9:02 AM CDT Abnormal stress test CBC WITH AUTO DIFFERENTIAL STAT 12/05/2024 7:43 AM CDT LIPID PANEL Routine 12/05/2024 7:43 AM CDT HEMOGLOBIN A1C W/ ESTIMATED GLUCOSE Routine 12/05/2024 7:43 AM CDT CMP (COMPREHENSIVE METABOLIC PANEL) STAT 12/05/2024 7:43 AM CDT COMPLETE BLOOD COUNT (CBC) WITH DIFF STAT 12/05/2024 7:43 AM CDT PROTIME (PT) (PROTHROMBIN TIME) STAT 12/05/2024 7:43 AM CDT RHYTHM STRIP 12/05/2024 12:00 AM CDT from Last 3 Months Results * CARDIAC CATH (12/05/2024 9:02 AM CDT) Anatomical Region Laterality Modality CARDIO N/A X-Ray Angiograph y Narrative 12/05/2024 8:50 AM CDT Cardiac Catheterization intervention Post-procedure note Date of Procedure: 12/05/24 Surgeon(s): Emerita Ring MD Procedure(s): Cardiac Cath Pre-operative Diagnosis: +ve stress test Post-operative Diagnosis: No fluoroscopically significant coronary artery artery disease. Access: radial Estimated Blood Loss: Minimal Procedure details: Access obtained from the right radial artery with a 6 Arabic sheath. Heparin and Nitroglycerine was used for anticoagulation and as an antispasmodic. A JR4 catheter was then pulled back and placed in the right coronary artery. Angiographic report contrast injection in multiple planes. The catheter was then removed and a JL 3.5 catheter was placed at the left coronary ostium. Angiography performed in multiple planes. The catheter was then removed. Sedation: 17 (825 to 842) minutes of moderate sedation was provided under my direct supervision by a trained observer in the cath lab tech. Findings: Hemodynamics: Heart rate: 64 , BPM Blood pressure:110/73 mmHg, Coronary anatomy: Left main: No left main, isolated LAD and Lcx ostiums. LAD: Separate ostium from Lcx. Proximal LAD stent is patent. No significant coronary artery disease in LAD or diagonals Left circumflex: Separate ostium from LAD. No significant coronary artery diease. RCA: No significant coronary artery disease. Dominance: Right Sedation: 2 mg Versed, 100 Mcg Fentanyl. Fluroscopy: Air Kerma: 166 mgy. Fluoro time: 3.9 Min Contrast Use: 45 Ml Complications: None Impression/assessment /plan Coronary angiogram showed significant disease (Patent LAD stent). Continue aspirin 81 mg daily Consider OMT for microvascular coronary artery disease Signed: Emerita Ring MD, 12/05/2024, 8:44 AM CDT Marisela Tiffanie Frank [place], ADMIN SECRETARY IMG CARDIAC CA TH Final Result * Hemoglobin A1C w/ Estimated Glucose (12/05/2024 7:43 AM CDT) HGB-A1C 5.9 4.0 - 6.0 % 12/05/2024 8:05 AM CDT [facility] Est Average Glucose 122.6 mg/dL 12/05/2024 8:05 AM CDT [facility] Blood Venipuncture / Unknown 12/05/2024 7:43 AM CDT 12/05/2024 7:43 AM CDT Narrative [facility] - 12/05/2024 8:05 AM CDT HEMOGLOBIN A1C: DIABETIC PATIENTS: WELL-CONTROLLED: 6.2 - 7.0 INTERMEDIATE WELL-CONTROLLED: 7.0 - 9.0 POORLY-CONTROLLED: >9.0 Specimens containing greater than 5% of Hemoglobin F may result in lower than expected % HbA1C results. Emerita Ring MD CHEMISTRY ORDERABLES Final R esult [facility] [address] [place] [address] * (ABNORMAL) CBC with Auto Differential (12/05/2024 7:43 AM CDT) WBC 12.39(H) 4.00 - 12.00 10(3)/mcL 12/05/2024 7:48 AM CDT [facility] RBC 4.79 3.80 - 5.30 10(6)/mcL 12/05/2024 7:48 AM CDT [facility] HEMOGLOBIN (HGB) 15.0 12.0 - 15.8 g/dL 12/05/2024 7:48 AM CDT [facility] HEMATOCRIT (HCT) 43.4 36.0 - 47.0 % 12/05/2024 7:48 AM CDT [facility] MCV 90.6 82.0 - 96.0 fL 12/05/2024 7:48 AM CDT [facility] MCH 31.3 26.0 - 34.0 pg 12/05/2024 7:48 AM CDT [facility] MCHC 34.6 31.0 - 36.0 g/dL 12/05/2024 7:48 AM CDT [facility] PLATELET COUNT 265 140 - 440 10(3)/mcL 12/05/2024 7:48 AM CDT [facility] RDW 12.0 11.8 - 15.5 % 12/05/2024 7:48 AM CDT [facility] MPV 9.4(L) 9.7 - 12.4 fL 12/05/2024 7:48 AM CDT [facility] NEUTROPHILS 62.4 47.0 - 73.0 % 12/05/2024 7:48 AM CDT [facility] LYMPHOCYTES 29.5 18.0 - 42.0 % 12/05/2024 7:48 AM CDT [facility] MONOCYTES 5.2 4.0 - 12.0 % 12/05/2024 7:48 AM CDT [facility] EOSINOPHILS 2.3 0.0 - 5.0 % 12/05/2024 7:48 AM CDT [facility] BASOPHILS 0.6 0.0 - 1.0 % 12/05/2024 7:48 AM CDT [facility] ABSOLUTE NEUTROPHILS 7.73(H) 1.60 - 7.70 10(3)/mcL 12/05/2024 7:48 AM CDT [facility] ABSOLUTE LYMPHOCYTES 3.66(H) 1.30 - 3.20 10(3)/mcL 12/05/2024 7:48 AM CDT [facility] ABSOLUTE MONOCYTES 0.65 0.20 - 1.00 10(3)/mcL 12/05/2024 7:48 AM CDT [facility] ABSOLUTE EOSINOPHIL 0.28 0.00 - 0.40 10(3)/mcL 12/05/2024 7:48 AM CDT [facility] ABSOLUTE BASOPHILS 0.07 0.00 - 0.10 10(3)/mcL 12/05/2024 7:48 AM CDT [facility] NRBC PER 100 WBC 0 12/06/19 7:48 AM CDT [facility] Blood Venipuncture / Unknown 12/05/2024 7:43 AM CDT 12/05/2024 7:45 AM CDT Emerita Ring MD HEMATOLOGY ORDERABLES Final Result Performing Organization Address City/[facility]/ZIP Co de Phone Number [facility] [address] [place] [address] * PROTIME (PT) (PROTHROMBIN TIME) (12/05/2024 7:43 AM CDT) PROTIME-PATIENT 13.1 11.6 - 14.8 sec 12/05/2024 8:05 AM CDT [facility] INR 1.0 0.9 - 1.2 12/05/2024 8:05 AM CDT [facility] Comment: Therapeutic Ranges INR = 2.0-3.0: Venous thromb, atrial fib, pul embolism, tissue heart valve, ami. INR = 2.5-3.5: Mechanical heart valve Critical value for INR is >/= 4.5 Blood Venipuncture / Unknown 12/05/2024 7:43 AM CDT 12/05/2024 7:43 AM CDT Emerita Ring MD HEMATOLOGY ORDERABLES Final Result Performing Organization Address City/[facility]/ZIP Co de Phone Number [facility] [address] [place] [address] * (ABNORMAL) Lipid Panel (12/05/2024 7:43 AM CDT) CHOLESTEROL 106 <200 mg/dL 12/05/2024 8:07 AM CDT [facility] TRIGLYCERIDES 171(H) <150 mg/dL 12/05/2024 8:07 AM CDT [facility] HDL CHOLESTEROL 38(L) >40 mg/dL 8:07 AM CDT [facility] LDL 34 <130 mg/dL 12/05/2024 8:07 AM CDT [facility] VLDL 34 10 - 50 mg/dL 12/05/2024 8:07 AM CDT [facility] CHOL/HDL RATIO 2.8 0.0 - 4.4 12/05/2024 8:07 AM CDT [facility] NON-HDL CHOLESTEROL 68 <130 mg/dL 12/05/2024 8:07 AM CDT [facility] Blood Venipuncture / Unknown 12/05/2024 7:43 AM CDT 12/05/2024 7:43 AM CDT us Emerita Ring MD CHEMISTRY ORDERABLES Final R esult [facility] [address] [place] [address] * (ABNORMAL) CMP (Comprehensive Metabolic Panel) (12/05/2024 7:43 AM CDT) SODIUM 141 136 - 145 mmol/L 12/05/2024 8:07 AM CDT [facility] POTASSIUM 4.0 3.5 - 5.1 mmol/L 12/05/2024 8:07 AM CDT [facility] CHLORIDE 110(H) 98 - 107 mmol/L 12/05/2024 8:07 AM CDT [facility] CO2, VENOUS 23 22 - 30 mmol/L 12/05/2024 8:07 AM CDT [facility] ANION GAP 12.0 <18.0 mmol/L 12/05/2024 8:07 AM T [facility] GLUCOSE 106(H) 70 - 99 mg/dL 12/05/2024 8:07 AM CDT [facility] BUN 10 5 - 18 mg/dL 12/05/2024 8:07 AM T [facility] CREATININE, BLOOD 0.60 0.60 - 1.00 mg/dL 12/05/2024 8:07 AM T [facility] BUN/CREATININE RATIO 17 12 - 20 ratio 12/05/2024 8:07 AM T [facility] TOTAL PROTEIN 6.9 6.0 - 8.0 g/dL 12/05/2024 8:07 AM T [facility] ALBUMIN 4.1 3.5 - 5.0 g/dL 12/05/2024 8:07 AM [facility] A/G RATIO 1.5 1.0 - 2.2 12/05/2024 8:07 AM T [facility] CALCIUM 8.9 8.7 - 10.5 mg/dL 12/05/2024 8:07 AM [facility] T BILI 0.6 0.2 - 1.2 mg/dL 12/05/2024 8:07 AM [facility] SGOT (AST) 27 <43 U/L 12/05/2024 8:07 AM T [facility] SGPT (ALT) 22 <56 U/L 12/05/2024 8:07 AM T [facility] ALKALINE PHOSPHATASE 79 40 - 150 U/L 12/05/2024 8:07 AM [facility] GFR, ESTIMATED >60 >=60 12/05/2024 8:07 AM [facility] Comment: Creatinine Clearance is the preferred criteria for selecting drug dose adjustments in renally impaired patients. The GFR is provided as additional pertinent clinical information. GFR is reported in mL/min/1.73 sq m. Calculation based on the Chronic Kidney Disease Epidemiology Collaboration (CKD- EPI) equation refit without adjustment for race. GFR, EST. >60 >=60 025 8:[address] [facility] GFR, EST. NONAFRICAN >60 >=60 12/05/2024 8:[address] [facility] Blood Venipuncture / Unknown 12/05/2024 7:43 AM CDT 12/05/2024 7:43 AM CDT us Emerita Ring MD CHEMISTRY ORDERABLES Final R esult Performing Organization Address City/[facility]/ZIP Co de Phone Number [facility] [address] [place] [address] * RHYTHM STRIP (12/05/2024 12:00 AM CDT) 12/05/2024 us Provider Scan IMG ECG ORDERABLES Final Result Performing Organization Address City/[facility]/ZIP Co de Phone Number RESULTING AGENCY from Last 3 Months Insurance MEDICAID [employer] Advance Directives * Full Code (Latest Code Status on File) Date Activated Date Inactivated Comments 08/03/2023 3:43 PM 08/04/2023 5:06 PM CPR-Full Yordan atment: FULL ARREST: Attempt Resuscitation/CPR wit intubation and mechanical ventilation. PRE-ARREST: Use entire range of life support measures to stabilize the patient. Care Teams Welding Pantograph Operator Relationship Specialty Start Date End Date Rita Spencer APRN, ADMIN SECRETARY [address] [facility] [address] [place] [address] PCP - General Advanced Practice Nurse 10/19/23 Marisela Marie APRN, [place] [address] [place] [address] Nurse Practitioner Cardiology 09/01/24 Ev Tarango DO [address] [address] Consulting Physician Cardiology 01/16/25
--- OUTSIDE RECORDS SUMMARY | 2025-03-01 08:56 | XMS_ITS | Clinical Summary ---
Author Organization [facility] [employer] Address [address] [place] [address] Care Team Providers Care Violin Teacher Name Role Phone None, Physician Primary Care Provider Unavailabl e Source Comments [facility],non-owned Affiliates and Associated Physician Practices is amultiple site organization consisting of ambulatory clinics and hospital sitesin [place], [place], [place] and [place]. This disclosure is being madepursuant to the Care Everywhere program and may not contain all information available regarding this patient. Last updated 18.[facility] [employer] Allergies Active Allergy Reactions Criticality Noted Date Comments Doxycycline Rash Medium 12/21/2024 Medications * Be aware that medications may not be up to date on this document. Alwaysverify current medications with the patient. SPRINTEC 28 0.25-35 MG-MCG tablet 9 Active ibuprofen (MOTRIN) 600 MG tablet 9 Active albuterol HFA (PROVENTIL;VENT BRIDGET;PROAIR) 108 (90 Base) MCG/ACT inhaler Acti ve fluticasone propionate (FLONASE) 50 MCG/ACT nasal spray [place] 1 (one) spray to 2 (two) sprays into the nose once daily Active aspirin (Aspirin) 81 MG chew tablet Take 1 (one) tablet by mouth once daily 5 09/08/19 26 Active rosuvastatin (Crestor) 20 MG tablet Take 1 (one) tablet by mouth at bedtime 4 Active sennosides (Senokot) 8.6 MG tablet Take 1 (one) tablet by mouth 2 times daily as needed 4 Active metoprolol succinate XL 24hr (Toprol XL) 25 MG tablet Take 1 (one) tablet by mouth once daily 4 Active triamcinolone acetonide (Kenalog) 0.1 % ointment Apply to affected area 2 times daily 4 Active cetirizine (ZyrTEC) 10 MG tablet Take 1 (one) tablet by mouth once daily 5 Active hydrocortisone (Hytone) 2.5 % ointmentIndicat ions:Intertrigo Apply to rash in skin folds along with ketoconazole cream twice daily. 30 days supply. 30 g 2 5 Active ketoconazole (Nizoral) 2 % creamIndication s:Intertrigo Apply to rash in skin folds twice daily. 30 days supply. 60 g 2 5 Active mometasone (Elocon) 0.1 % ointmentIndicat ions:Rash Apply to itchy areas on hands and arms BID. 30 day supply. 45 g 5 Active buPROPion SR 12hr (Wellbutrin-SR) 150 MG tablet Take 1 (one) tablet by mouth 2 times daily 5 Active spironolactone (Aldactone) 100 MG tabletIndicatio ns:Hidradenitis suppurativa Take 1 tab daily with full glass of water 30 tablet 2 5 Active clindamycin (Cleocin) 1 % lotion Apply to underarms and groin area daily. 30 day supply. 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 Encounters Date Type Department Care Team Description 01/01/2025 Orders Only [facility] - Cosmetic Dermatology [facility] [place] [address] Demetrice Perez MD 12/21/2024 2:45 PM CDT Office Visit [facility] - Cosmetic Dermatology [facility] [place] [address] Demetrice Perez MD Hidradenitis suppurativa (Primary Dx) 12/21/2024 Travel from Last 3 Months Family History Relation Name Status Comments Mother Diabetic retino elsie, cataracts, elevated eye pressure on eye drops Social History Tobacco Use Types Packs/Day Years Used Date Smoking Tobacco: Some Days Cigarettes 0.5 5 Smokeless Tobacco: Never Tobacco Cessation:Ready to Q uit: Not Asked; Counseling Given: Not Answered Alcohol Use Standard Drinks/Week Comments Yes 0 (1 standard drink = 0.6 oz pur e alcohol) rarely Comments Unknown Sex and Gender Information Value Date Recorded Sex Assigned at Not on file Legal Sex Female 5:35 AM GAUGER CHIEF Gender Identity Not on file Sexual Orientation Not on file Last Filed Vital Signs Vital Sign Reading Time Taken Comments Blood Pressure - - Pulse - - Temperature - - Respiratory Rate - - Oxygen Saturation - - Inhaled Oxygen Concentration - - Weight 95.7 kg (211 lb) 01/16/2019 11:10 AM CDT Height 156.2 cm (5' 1.5) 01/16/2019 11:10 AM CD T Body Mass Index 39.22 01/16/2019 11:10 AM CDT Plan of Treatment Upcoming Encounters Date Type Department Care Team (Late st Contact Info) Description 03/26/2025 2:15 PM CDT Office Visit [facility] - Cosmetic Dermatology [facility], [address] [address] Demetrice Perez MD [facility] [address] [address] Health Maintenance Due Date Last Done Comments HIV SCREENING 01/02/2007 HEPATITIS C SCREENING 12/29/2009 DTAP/TDAP/TD VACCINES (1 - Tdap) 01/02/2011 HEPATITIS B VACCINE (1 of 3 - 19+ 3-dose series) 01/02/2011 PNEUMOCOCCAL VACCINE (1 of 2 - PCV) 01/02/2011 PAP SMEAR 01/02/2013 HPV VACCINE (1 - 3-dose SCDM series) 01/02/2019 COVID-19 VACCINE (2023-2 5 season) 2024 01/29/2022, 04/29/2021, 04/08/2021 DEPRESSION SCREENING 07/12/2024 INFLUENZA VACCINE (#1) 2025 ZOSTER VACCINE (1 of 2) 01/02/2042 HIB VACCINE Aged Out No longer eligi ble based on patient's age to complete this topic MENINGOCOCCAL (Group B) VACCINE SHARED DECISION-MAKING Aged Out No longer eligible based on patient's age to complete this topic MENINGOCOCCAL GROUPS A/C/Y/W VACCINE Aged Out No longer eligible b ased on patient's age to complete this topic Insurance Care Teams Violin Teacher Relationship Specialty Start Date End Date None, Physician PCP - General 12/21/24
--- OUTSIDE RECORDS SUMMARY | 2025-03-01 08:57 | XMS_ITS | Clinical Summary ---
Author Organization [facility] Address [address] [place] [address] Care Team Providers Care Pm Head Cook Name Role Phone Dejuan Garcia MD Unavailable + [phone] Rita Spencre NP Primary Care Provider + [phone] Allergies Active Allergy Reactions Criticality Noted Date Comments Doxycycline Rash Medium 11/15/2023 Hands swells, turn red, and itched Influenza Virus Vaccines Other (See comments) High Reaction: OTHER REACTION, Pneumococcal 23-Callie Ps Vaccine Other (See comments) Low 11/16/2018 Medications cholecalciferol (VITAMIN D-3) 5,000 unit capsule Take 1 capsule (5,000 Units total) by mouth daily 90 capsule 3 07/04/20 20 Active clopidogreL (PLAVIX) 75 mg tablet Take [...] as needed for constipation 08/04/19 24 Active triamcinolone (KENALOG) 0.1 % ointment [...] day 60 g 2 01/07/20 24 Active rosuvastatin (CRESTOR) 20 mg tabletIndications: History of WA (myocardial infarction) Take 1 tablet (20 mg total) by mouth nightly 03/31/20 24 Active cetirizine (ZyrTEC) 10 mg tablet Take 1 tablet (10 mg total) by mouth daily 90 tablet 3 09/08/19 25 Active aspirin 81 mg chewable tablet Take 1 tablet (81 mg total) by mouth daily 90 tablet 3 09/26/19 25 026 Active hydrocortisone 2.5 % ointment Apply topically 2 (two) times a day 09/22/19 25 Active mometasone (ELOCON) 0.1 % ointment Apply topically daily 09/22/19 25 Active ketoconazole (NIZORAL) 2 % cream Apply topically 2 (two) times a day 09/22/19 25 Active senna 8.6 mg tablet TAKE 1 TABLET BY MOUTH 2 TIMES A DAY NEEDED FOR CONSTIPATION. 60 tablet 4 01/16/20 25 Active ALPRAZolam (XANAX) 0.5 mg tablet Take 1 tablet (0.5 mg total) by mouth daily as needed 11/28/19 25 Active clindamycin (CLEOCIN T) 1 % lotion Apply to underarms and groin area daily. 30 day supply. 01/02/20 25 Active docusate sodium (COLACE) 100 mg capsule Take 1 capsule (100 mg total) by mouth 2 (two) times a day as needed 01/16/20 25 Active metoprolol XL (TOPROL-XL) 50 mg extended release tablet Take 1 tablet (50 mg total) by mouth daily 01/10/20 25 Active metFORMIN XR (GLUCOPHAGE XR) 500 mg 24 hr tabletIndications: Hidradenitis suppurativa Take 1 tablet (500 mg total) by mouth daily with breakfast 90 tablet 01/17/20 25 026 Active metoprolol XL (TOPROL-XL) 25 mg extended release tablet Take 1 tablet (25 mg total) by mouth daily 08/05/19 24 025 Discontin ued(Alter yvette therapy) busPIRone (BUSPAR) 15 mg tabletIndications: Anxiety Take 0.5 tablets (7.5 mg total) by mouth daily as needed (anxiety) 08/25/19 24 025 Discontin ued(Patie nt Reported) buPROPion SR (WELLBUTRIN SR) 150 mg 12 hr tablet Take 1 tablet (150 mg total) by mouth 2 (two) times a day 11/28/19 025 Discontin ued(Patie nt Reported) cephalexin (KEFLEX) 500 mg capsule Take 1 capsule (500 mg total) by mouth 3 (three) times a day 09/26/19 025 Discontin ued(Thera py completed ) Active Problems Problem Noted Date Diagnosed Date Hidradenitis suppurativa 01/16/2025 Assessment & Plan (01/16/2025 5:10 PM CDT): -Chronic, not at goal -Currently uses spironolactone 100 mg daily, clindamycin ointment, mometasone ointment -Patient endorses ongoing difficulty with sores in her right under arm area and both sides of her labia -She states these areas have open and drained -Follows with dermatology -Patient reports she has not noticed much improvement with her current regimen and is becoming frustrated with the sores -Will treat an acute infection with oral clindamycin twice a day times 10 days, short prednisone course -Spironolactone discontinued due to making patient sleepy, metformin 500 mg daily added to treatment plan -Continue current treatment plan Orders: metFORMIN XR (GLUCOPHAGE XR) 500 mg 24 hr tablet; Take 1 tablet (500 mg total) by mouth daily with breakfast clindamycin (CLEOCIN) 300 mg capsule; Take 1 capsule (300 mg total) by mouth 2 (two) times a day for 10 days predniSONE (DELTASONE) 20 mg tablet; Take 1 tablet (20 mg) by mouth daily for 5 days 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 -If not improving, may need to refer to GI -Please start taking probiotic 20-50 billion CFU daily long-term. This will help maintain the good bacteria that is in your gut. -Follow up in 1 month or sooner as needed Urinary frequency 09/15/2024 Assessment & Plan (09/15/2024 7:23 AM SALES RESEARCH ANALYST): -Chronic, not at goal -Discussed/ordered labs -Abdominal and pelvic ultrasound and bilateral kidney ultrasound ordered today. -UA in office today negative for acute infection. Sent for culture -Follow up in 1 month or sooner as needed Proteinuria 09/15/2024 Assessment & Plan (09/15/2024 7:22 AM SALES RESEARCH ANALYST): -Acute, new -Discussed/ordered labs -Abdominal and pelvic ultrasound and bilateral kidney ultrasound ordered today. -UA in office today negative for acute infection. Sent for culture -Follow up in 1 month or sooner as needed Flank pain 09/15/2024 Assessment & Plan (09/15/2024 7:21 AM SALES RESEARCH ANALYST): -chronic, not at/near goal -Discussed/ordered labs -Abdominal and pelvic ultrasound and bilateral kidney ultrasound ordered today. -UA in office today negative for acute infection. Sent for culture -Follow up in 1 month or sooner as needed Itching 09/15/2024 Assessment & Plan (09/15/2024 7:22 AM SALES RESEARCH ANALYST): -chronic, not at/near goal -Patient reports generalized itching and swelling feeling -Discussed/ordered labs -continue on Zyrtec 10 mg daily- advised to take on a regular basis -Referral sent to mechanic sound technician -Please start taking probiotic 20-50 billion CFU daily long-term. This will help maintain the good bacteria that is in your gut. -Keep scheduled appointment with computer graphic artist -Follow up in 1 month or sooner as needed Swelling 09/15/2024 Assessment & Plan (09/15/2024 7:22 AM SALES RESEARCH ANALYST): -chronic, not at/near goal -Patient reports generalized itching and swelling feeling -Discussed/ordered labs -continue on Zyrtec 10 mg daily- advised to take on a regular basis -Referral sent to mechanic sound technician -Please start taking probiotic 20-50 billion CFU daily equipment operator intermodal yard. This will help maintain the good bacteria that is in your gut. -Keep scheduled appointment with computer graphic artist -Follow up in 1 month or sooner as needed Vaginal discharge 09/15/2024 Assessment & Plan (02/12/2025 1:23 PM CDT): -Chronic, improving, but not at goal -Repeat vaginitis swab completed today to ensure resolution of BV -Patient declines further STD testing -Follow up if not improving Orders: Vaginitis panel Vaginal; Future Assessment & Plan (09/15/2024 7:23 AM SALES RESEARCH ANALYST): -Chronic, not at goal -STD screening ordered today -Swab collected to screen for gonorrhea, chlamydia, BV, and yeast infection -Recommend follow up with Gynecology -Follow up in 1 month or sooner as needed Intertrigo 01/07/2024 Assessment & Plan (01/07/2024 3:19 [...] 33.9 in adult 10/18/2023 Assessment & Plan (02/12/2025 1:23 PM CDT): -chronic, not at/near goal goal BMI <30 Healthy, high-protein, lower carbohydrate, lower fat lifestyle and exercise for 150min/week recommended Recommend tracking everything you put in your mouth on an doris like [employer]ipe Hand Measurements: A fist or cupped hand = 1 cup 1 cup = 1 -2 servings of fruit juice 1 oz. of cold cereal 2 oz. of cooked cereal, rice or pasta 8 oz. of milk or yogurt A thumb = 1 oz. of cheese Consuming low-fat cheese helps you meet the required servings from the milk, yogurt and cheese group. 1 oz. of low-fat cheese counts as 8 [...] equals 3 oz. for an adult and 1 -2 oz. for a child under 5. 1 tennis ball or a fist= 1/2 cup of fruit and vegetables Healthy diets include a variety of colorful fruits and vegetables every day. The secret to serving size is in your hand. Snacking can add up. Because hand sizes vary, compare your fist size to an actual measuring cup. Assessment & Plan (01/16/2025 5:10 PM CDT): Wt Readings from Last 3 Encounters: 01/16/25 82.7 kg (182 lb 4.8 oz) 12/08/24 80.7 kg (178 lb) 09/08/24 81.2 kg (179 lb) Body mass index is 33.33 kg/m . -Chronic, not at goal of <30 bmi -Discussed recommendations for exercise at least 30 minutes moderate to vigorous exercise most days of the week. (minimum 150 minutes weekly) -Discussed importance of well-balanced diet. Assessment & Plan (12/08/2024 10:32 AM CDT): -chronic, not at/near goal goal BMI <30 Healthy, high-protein, lower carbohydrate, lower fat lifestyle and exercise for 150min/week recommended Recommend tracking everything you put in your mouth on an doris like [employer]ipe Hand Measurements: A fist or cupped hand = 1 cup 1 cup = 1 -2 servings of fruit juice 1 oz. of cold cereal 2 oz. of cooked cereal, rice or pasta 8 oz. of milk or yogurt A thumb = 1 oz. of cheese Consuming low-fat cheese helps you meet the required servings from the milk, yogurt and cheese group. 1 oz. of low-fat cheese counts as 8 [...] equals 3 oz. for an adult and 1 -2 oz. for a child under 5. 1 tennis ball or a fist= 1/2 cup of fruit and vegetables Healthy diets include a variety of colorful fruits and vegetables every day. The secret to serving size is in your hand. Snacking can add up. Because hand sizes vary, compare your fist size to an actual measuring cup. Assessment & Plan (09/15/2024 7:19 AM SALES RESEARCH ANALYST): -chronic, not at/near goal goal BMI <30 Healthy, high-protein, lower carbohydrate, lower fat lifestyle and exercise for 150min/week recommended Recommend tracking everything you put in your mouth on an doris like Med[employer]ipe Hand Measurements: A fist or cupped hand = 1 cup 1 cup = 1 -2 servings of fruit juice 1 oz. of cold cereal 2 oz. of cooked cereal, rice or pasta 8 oz. of milk or yogurt A thumb = 1 oz. of cheese Consuming low-fat cheese helps you meet the required servings from the milk, yogurt and cheese group. 1 oz. of low-fat cheese counts as 8 [...] equals 3 oz. for an adult and 1 -2 oz. for a child under 5. 1 tennis ball or a fist= 1/2 cup of fruit and vegetables Healthy diets include a variety of colorful fruits and vegetables every day. The secret to serving size is in your hand. Snacking can add up. Because hand sizes vary, compare your fist size to an actual measuring cup. Assessment & Plan (04/03/2024 9:00 AM CDT): -chronic, not at/near goal goal BMI <30 Healthy, high-protein, lower carbohydrate, lower fat lifestyle and exercise for 150min/week recommended Recommend tracking everything you put in your mouth on an doris like [employer] Hand Measurements: A fist or cupped hand = 1 cup 1 cup = 1 -2 servings of fruit juice 1 oz. of cold cereal 2 oz. of cooked cereal, rice or pasta 8 oz. of milk or yogurt A thumb = 1 oz. of cheese Consuming low-fat cheese helps you meet the required servings from the milk, yogurt and cheese group. 1 oz. of low-fat cheese counts as 8 [...] equals 3 oz. for an adult and 1 -2 oz. for a child under 5. 1 [...] in your mouth on an doris like [employer] Hand Measurements: A fist or cupped hand = 1 cup 1 cup = 1 -2 servings of fruit juice 1 oz. of cold cereal 2 oz. of cooked cereal, rice or pasta 8 oz. of milk or yogurt A thumb = 1 oz. of cheese Consuming low-fat cheese helps you meet the required servings from the milk, yogurt and cheese group. 1 oz. of low-fat cheese counts as 8 [...] equals 3 oz. for an adult and 1 -2 oz. for a child under 5. 1 [...] in your mouth on an doris like [employer]ipe Hand Measurements: A fist or cupped hand = 1 cup 1 cup = 1 -2 servings of fruit juice 1 oz. of cold cereal 2 oz. of cooked cereal, rice or pasta 8 oz. of milk or yogurt A thumb = 1 oz. of cheese Consuming low-fat cheese helps you meet the required servings from the milk, yogurt and cheese group. 1 oz. of low-fat cheese counts as 8 [...] equals 3 oz. for an adult and 1 -2 oz. for a child under 5. 1 [...] (172 lb) Body mass index is 33.47 kg/m . -Weight gain noted, not at goal of <30 bmi -Discussed recommendations for exercise at least 30 minutes moderate to vigorous exercise most days of the week. (minimum 150 minutes weekly) -Discussed importance of well-balanced diet. History of WA (myocardial infarction) 08/10/2023 Assessment & Plan (02/12/2025 1:23 PM CDT): -occurred in July 2023 -continue [...] pain -encouraged smoking cessation Assessment & Plan (04/03/2024 8:59 AM CDT): [...] cessation Assessment & Plan (08/25/2023 9:10 AM SALES RESEARCH ANALYST): -occurred in July 2023 -continue on aspirin 81 mg daily, atorvastatin 40 mg nightly, clopidogrel 75 mg daily, and metoprolol XL 25 mg daily -continue follow up with Cardiology -advised patient go to ED if experiencing chest pain -encouraged smoking cessation Assessment & Plan (08/10/2023 12:24 PM SALES RESEARCH ANALYST): Acute problem- this is a new [...] improve her sleep -refer to Psychiatry at [facility] -advised patient to keep appointment with therapist Alcohol use 07/07/2022 Assessment & Plan (07/07/2022 3:38 PM SALES RESEARCH ANALYST): -recommended that patient stop drinking alcohol -patient has been drinking everyday typically 1-2 beers at a time but has drank up to 6 beers at a time recently Seasonal allergic rhinitis due to pollen 022 Assessment & Plan (02/12/2025 1:23 PM CDT): -chronic, stable Discussed environmental controls No smoking around patient, no animals in bedroom, keep windows closed, no hanging clothes on the line Take zyrtec/claritin/allison in the am Saline rinse in the am Flonase 1 sprays each nostril, aim away from cartilage, spray once-baby sniff, switch to the other nostril and repeat. Saline rinse about 15 min before bed Flonase 1 sprays each nostril, aim away from cartilage, [...] on meds mid to late February until Thanksgiving Come off of meds if possible during the winter Assessment & Plan (05/05/2022 3:55 PM CDT): [...] summer Then restart on meds mid to february until Thanksgiving Come off of meds if possible during the winter Anxiety 02/25/2021 Assessment & Plan (02/12/2025 1:23 PM CDT): -chronic, stable -Patient isn't currently taking medication for this and reports she is doing well Patient reiterated no suicidal thoughts at this time; take medication as directed; contact 911 and go to the ER if becomes suicidal; discussed side effects of medication with patient; encouraged healthy diet and exericise; encouraged patient to see a counselor Assessment & Plan (08/25/2023 9:13 AM SALES RESEARCH ANALYST): -chronic, stable- patient recently stopped her [...] with therapist. -referral sent to Psychiatry at [facility] for medication management and ADHD evaluation Assessment & Plan (07/07/2022 3:39 PM SALES RESEARCH ANALYST): Patient reiterated no suicidal thoughts at [...] bedtime Assessment & Plan (09/10/2021 4:07 PM SALES RESEARCH ANALYST): Patient reiterated no suicidal thoughts at [...] bedtime. Assessment & Plan (06/11/2021 4:13 PM SALES RESEARCH ANALYST): Patient reiterated no suicidal thoughts at [...] your phone. Examples would be headspace, calm, [id number], Personal Mike. Please work on this every [...] hot dogs, no MSG as found in danish food, no more than 1/2 banana a [...] up Assessment & Plan (08/21/2020 10:31 AM SALES RESEARCH ANALYST): HPI: Condition is stable patient having [...] hot dogs, no MSG as found in danish food, no more than 1/2 banana a [...] Please start taking probiotic 20-50billion CFU daily long-term. This will help maintain the good bacteria that is in your gut. Assessment & Plan (06/25/2020 4:46 PM SALES RESEARCH ANALYST): Pt having headaches for 7 days [...] hot dogs, no MSG as found in danish food, no more than 1/2 banana a day, no artificial sweeteners, fresh bread (less than 24 hours old); drink lots of water. See me back in 1 mo to discuss the headache diary. Moderate episode of recurrent major depressive d isorder 06/25/2020 Assessment & Plan (02/12/2025 1:23 PM CDT): -chronic, stable -Patient isn't currently taking medication for this and reports she is doing well Patient reiterated no suicidal thoughts at this time; take medication as directed; contact 911 and go to the ER if becomes suicidal; discussed side effects of medication with patient; encouraged healthy diet and exericise; encouraged patient to see a counselor Assessment & Plan (08/25/2023 9:13 AM SALES RESEARCH ANALYST): -chronic, stable- patient recently stopped her [...] with therapist. -referral sent to Psychiatry at [facility] for medication management and ADHD evaluation Assessment & Plan (07/07/2022 3:38 PM SALES RESEARCH ANALYST): Patient reiterated no suicidal thoughts at [...] bedtime Assessment & Plan (09/10/2021 4:08 PM SALES RESEARCH ANALYST): Patient reiterated no suicidal thoughts at [...] bedtime. Assessment & Plan (06/11/2021 4:13 PM SALES RESEARCH ANALYST): Patient reiterated no suicidal thoughts at [...] to help with anxiety. Today, have your [id number] watch your kids overnight. I need you to get some sleep. Please take two of the buspirone 10mg tablets about 8pm today with goal of going to bed at 9pm. This double dose is a one time dose. Starting tomorrow only take 1 tablet twice daily. Return in 2 wks. List of counselors given. Assessment & Plan (06/25/2020 4:08 PM SALES RESEARCH ANALYST): She says she feels fine, then will start balling 20-30 times a day. 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 Dr. Garcia (DIAL MAKER) is treating this with Paroxetine 10mg daily. She feels normal on the medication. No longer having the crying episodes. Mild intermittent asthma without complication Assessment & Plan (02/12/2025 1:23 PM CDT): -chronic, stable -Discussed/ordered labs -continue on albuterol inhaler 2 puffs every 6 hours as needed Assessment & Plan (06/25/2020 4:10 PM SALES RESEARCH ANALYST): HPI: Condition is stable A&P: Discussed/ordered [...] needed Assessment & Plan (06/25/2020 5:08 PM SALES RESEARCH ANALYST): Ibuprofen as needed Chronic bilateral thoracic back pain 06/25/2020 Assessment & Plan (06/25/2020 5:07 PM SALES RESEARCH ANALYST): Ibuprofen as needed Scoliosis 06/25/2020 Assessment & Plan (06/25/2020 5:07 PM SALES RESEARCH ANALYST): Ibuprofen as needed Tobacco use 06/25/2020 Assessment & Plan (02/12/2025 1:23 PM CDT): Patient aware of risks of tobacco use up to and including . Patient does not have interest in quitting at this time. Recommend smoking cessation. Assessment & Plan (08/25/2023 9:13 AM SALES RESEARCH ANALYST): Patient aware of risks of tobacco use up to and including . Patient does not have interest in quitting at this time. Recommend smoking cessation. Assessment & Plan (08/10/2023 12:21 PM SALES RESEARCH ANALYST): Chronic problem She was advised to quit smoking; the risks of continued tobacco use discussed. Assessment & Plan (10/22/2021 3:14 PM CDT): Pt was smoker - would benefit from quitting as its likely worsening URIs Assessment & Plan (09/10/2021 4:06 PM SALES RESEARCH ANALYST): Patient states she has not smoked [...] you. Assessment & Plan (08/21/2020 10:33 AM SALES RESEARCH ANALYST): Decreased to 8 cig/day. She is trying to quit. 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 Caldera (opthalmologist) Was seeing neurologist but only went once-was told she was having migraines because she was too fat Assessment & Plan (08/21/2020 10:28 AM SALES RESEARCH ANALYST): Pt sees Lorenza guzman once a year in February She has seen opthalmologist in the past and was sent to have MRI and neurology. She was not happy with the neurologist or the other cabin crew she saw. She doesn't want to see another one. Assessment & Plan (06/25/2020 4:44 PM SALES RESEARCH ANALYST): Pt sees Lorenza guzman once a year. She has seen cabin crew in the past and was sent to have MRI and neurology, she was not happy with the neurologist and other cabin crew she was. We will have pt f/u with ophthalmology again. 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 She has seen cabin crew in the past and was sent to have MRI and neurology, she was not happy with the neurologist and other cabin crew she was. We will have pt f/u with ophthalmology again. Resolved Problems Problem Noted Date Diagnosed Date Resolved Date Abnormal stress test 11/17/2024 025 depression 10/13/20242024 Hospital discharge follow-up 08/10/2023 08/25/2023 Assessment & Plan (08/10/2023 12:26 PM SALES RESEARCH ANALYST): I personally reviewed H and P [...] activity unless she is cleared from her cisco unified communications engineer. 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 of cold cereal 2 oz. of cooked cereal, rice or pasta 8 oz. of milk or yogurt A thumb = 1 oz. of cheese Consuming low-fat cheese helps you meet the required servings from the milk, yogurt and cheese group. 1 oz. of low-fat cheese counts as 8 [...] equals 3 oz. for an adult and 1 -2 oz. for a child under 5. 1 [...] in your mouth on an doris like [employer] Hand Measurements: A fist or cupped hand = 1 cup 1 cup = 1 -2 servings of fruit juice 1 oz. of cold cereal 2 oz. of cooked cereal, rice or pasta 8 oz. of milk or yogurt A thumb = 1 oz. of cheese Consuming low-fat cheese helps you meet the required servings from the milk, yogurt and cheese group. 1 oz. of low-fat cheese counts as 8 [...] equals 3 oz. for an adult and 1 -2 oz. for a child under 5. 1 tennis ball or a fist= 1/2 cup of fruit and vegetables Healthy diets include a variety of colorful fruits and vegetables every day. The secret to serving size is in your hand. Snacking can add up. Because hand sizes vary, compare your fist size to an actual measuring cup. Assessment & Plan (07/07/2022 7:40 AM SALES RESEARCH ANALYST): HPI: Condition is not at/near goal goal BMI <30 A&P: Healthy, high-protein, lower carbohydrate, lower fat lifestyle and exercise for 150min/week recommended Recommend tracking everything you put in your mouth on an doris like [employer] Hand Measurements: A fist or cupped hand = 1 cup 1 cup = 1 -2 servings of fruit juice 1 oz. of cold cereal 2 oz. of cooked cereal, rice or pasta 8 oz. of milk or yogurt A thumb = 1 oz. of cheese Consuming low-fat cheese helps you meet the required servings from the milk, yogurt and cheese group. 1 oz. of low-fat cheese counts as 8 [...] equals 3 oz. for an adult and 1 -2 oz. for a child under 5. 1 [...] in your mouth on an doris like [employer] Lower carb substitutions: Good carries a zero net carb bread If [...] in much longer they will become mushy [place] and/or coconut flour instead of regular flour [...] pork rinds For yogurt, try Two Good mosotho yogurt Use Kenton for recipe ideas. Type in low carb... Hand Measurements: A fist or cupped hand = 1 cup 1 cup = 1 -2 servings of fruit juice 1 oz. of cold cereal 2 oz. of cooked cereal, rice or pasta 8 oz. of milk or yogurt A thumb = 1 oz. of cheese Consuming low-fat cheese helps you meet the required servings from the milk, yogurt and cheese group. 1 oz. of low-fat cheese counts as 8 [...] equals 3 oz. for an adult and 1 -2 oz. for a child under 5. 1 [...] in your mouth on an doris like MediSwipe Lower carb substitutions: Aldi carries a zero [...] in much longer they will become mushy [place] and/or coconut flour instead of regular flour [...] pork rinds For yogurt, try Two Good mosotho yogurt Use Kenton for recipe ideas. Type in low carb... Hand Measurements: A fist or cupped hand = 1 cup 1 cup = 1 -2 servings of fruit juice 1 oz. of cold cereal 2 oz. of cooked cereal, rice or pasta 8 oz. of milk or yogurt A thumb = 1 oz. of cheese Consuming low-fat cheese helps you meet the required servings from the milk, yogurt and cheese group. 1 oz. of low-fat cheese counts as 8 [...] equals 3 oz. for an adult and 1 -2 oz. for a child under 5. 1 [...] in your mouth on an doris like MediSwipe or [email or web address] Aldi carries a zero net carb bread [...] in much longer they will become mushy [place] and/or coconut flour instead of regular flour [...] pork rinds For yogurt, try Two Good mosotho yogurt Use Pinterest for recipe ideas. Type in low carb... Assessment & Plan (10/22/2021 3:13 PM CDT): Not at goal - diet and lifestyle modifcations Assessment & Plan (09/10/2021 8:38 AM SALES RESEARCH ANALYST): HPI: Condition is not at/near goal goal BMI <30 A&P: Healthy, high-protein, lower carbohydrate, lower fat lifestyle and exercise for 150min/week recommended Substitutions: Recommend tracking everything you put in your mouth on an doris like MediSwipe or [employer] Aldi carries a zero net carb bread [...] in much longer they will become mushy [place] and/or coconut flour instead of regular flour [...] pork rinds For yogurt, try Two Good mosotho yogurt Use Pinterest for recipe ideas. Type in low carb... Assessment & Plan (06/11/2021 4:14 PM SALES RESEARCH ANALYST): HPI: Condition is not at/near goal goal BMI <30 A&P: Healthy, high-protein, lower carbohydrate, lower fat lifestyle and exercise for 150min/week recommended Substitutions: Recommend tracking everything you put in your mouth on an doris like MediSwipe or [employer] Aldi carries a zero net carb bread [...] in much longer they will become mushy [place] and/or coconut flour instead of regular flour [...] pork rinds For yogurt, try Two Good mosotho yogurt Use Pinterest for recipe ideas. Type in low carb... Assessment & Plan (04/29/2021 12:21 PM CDT): HPI: Condition is not at/near goal goal BMI <30 A&P: Healthy, high-protein, lower carbohydrate, lower fat lifestyle and exercise for 150min/week recommended Substitutions: Recommend tracking everything you put in your mouth on an doris like MediSwipe or [employer] Aldi carries a zero net carb bread [...] in much longer they will become mushy [place] and/or coconut flour instead of regular flour [...] pork rinds For yogurt, try Two Good mosotho yogurt Use Pinterest for recipe ideas. Type in low carb... Assessment & Plan (02/25/2021 2:31 PM CDT): HPI: Condition is improving, but not at goal goal BMI <30 A&P: Healthy, high-protein, lower carbohydrate, lower fat lifestyle and exercise for 150min/week recommended Substitutions: Recommend tracking everything you put in your mouth on an doris like MediSwipe or [employer] Aldi carries a zero net carb bread [...] in much longer they will become mushy [place] and/or coconut flour instead of regular flour [...] pork rinds For yogurt, try Two Good mosotho yogurt Use Pinterest for recipe ideas. Type in low carb... Assessment & Plan (01/07/2021 8:43 AM CDT): HPI: Condition is not at/near goal goal BMI <30 A&P: Healthy, high-protein, lower carbohydrate, lower fat lifestyle and exercise for 150min/week recommended Substitutions: Recommend tracking everything you put in your mouth on an doris like MediSwipe or [employer] Aldi carries a zero net carb bread [...] in much longer they will become mushy [place] and/or coconut flour instead of regular flour [...] pork rinds For yogurt, try Two Good mosotho yogurt Use Pinterest for recipe ideas. Type in low carb... Assessment & Plan (12/24/2020 4:04 PM CDT): HPI: Condition is not at/near goal goal BMI <30 A&P: Healthy, high-protein, lower carbohydrate, lower fat lifestyle and exercise for 150min/week recommended Substitutions: Recommend tracking everything you put in your mouth on an doris like MediSwipe or [employer] Aldi carries a zero net carb bread [...] in much longer they will become mushy [place] and/or coconut flour instead of regular flour [...] pork rinds For yogurt, try Two Good mosotho yogurt Use Pinterest for recipe ideas. Type in low carb... Assessment & Plan (11/26/2020 1:35 PM CDT): HPI: Condition is improving, but not at goal Going to the gym A&P: Healthy, low carbohydrate lifestyle and exercise for 150min/week recommended Substitutions: Recommend tracking everything you put in your mouth on an doris like MediSwipe or [employer] Aldi carries a zero net carb bread [...] in much longer they will become mushy [place] and/or coconut flour instead of regular flour [...] pork rinds For yogurt, try Two Good mosotho yogurt Use Pinterest for recipe ideas. Type in low carb... Assessment & Plan (10/03/2020 9:45 AM CDT): HPI: Condition is Not at goal A&P: Healthy, low carbohydrate lifestyle and exercise for 150min/week recommended Substitutions: Recommend tracking everything you put in your mouth on an doris like MediSwipe Aldi carries a zero net carb bread [...] in much longer they will become mushy [place] and/or coconut flour instead of regular flour [...] pork rinds For yogurt, try Two Good mosotho yogurt Use Kenton for recipe ideas. Type in low carb... Assessment & Plan (09/19/2020 11:41 AM SALES RESEARCH ANALYST): HPI: Condition is worsening A&P: Healthy, low carbohydrate lifestyle and exercise for 150min/week recommended Substitutions: Recommend tracking everything you put in your mouth on an doris like MediSwipe Aldi carries a zero net carb bread [...] in much longer they will become mushy [place] and/or coconut flour instead of regular flour [...] pork rinds For yogurt, try Two Good mosotho yogurt Use Pinterest for recipe ideas. Type in low carb... Assessment & Plan (08/21/2020 7:34 AM SALES RESEARCH ANALYST): HPI: Condition is stable A&P: Healthy, low carbohydrate lifestyle and exercise for 150min/week recommended Substitutions: Recommend tracking everything you put in your mouth on an doris like MediSwipe Yamili carries a zero net carb bread [...] in much longer they will become mushy [place] and/or coconut flour instead of regular flour [...] pork rinds For yogurt, try Two Good mosotho yogurt Use Pinterest for recipe ideas. Type in low carb... Encounters Date Type Department Care Team Description 02/14/2025 Results Follow-Up [facility] Primary Care at [address] [phone] Rita Spencer NP Vaginitis panel Vaginal 02/12/2025 10:48 AM CDT - 02/12/2025 11:59 PM CDT [place] [address] Vaginal discharge Discharge Disposition: Discharge to home or self care 02/12/2025 10:00 AM CDT Office Visit [facility] Primary Care at [address] [phone] Rita Spencer NP Annual physical exam (Primary Dx); Encounter for other administrative examinations; Mixed hyperlipidemia; Mild intermittent asthma without complication; Moderate episode of recurrent major depressive disorder (HCC); Anxiety; Tobacco use; Seasonal allergic rhinitis due to pollen; History of [place] (myocardial infarction); Prediabetes; Vaginal discharge; Screening for thyroid disorder; Need for hepatitis B screening test; Encounter for hepatitis C screening test for low risk patient; Class 1 obesity with serious comorbidity and body mass index (BMI) of 33.0 to 33.9 in adult, unspecified obesity type 02/09/2025 Telephone [facility] Medical [facility] Primary Care at [address] [phone] Rita Spencer NP Forms Request 01/16/2025 2:30 PM CDT Office Visit [facility] Primary Care at [address] [phone] Hali Knight NP Hidradenitis suppurativa (Primary Dx); Class 1 obesity with body mass index (BMI) of 33.0 to 33.9 in adult, unspecified obesity type, unspecified whether serious comorbidity present 12/08/2024 9:30 AM CDT Office Visit [facility] Medical Group Primary Care at [address] [place] [address] Rita Spencer NP Cutaneous abscess of other site (Primary Dx); Class 1 obesity with serious comorbidity and body mass index (BMI) of 32.0 to 32.9 in adult, unspecified obesity type from Last 3 Months Immunizations Immunization Administration Dates Next Due DTP 10/01/1993 HiB 10/01/1993 Influenza, Unspecified 09/08/2024(Deferr ed: Patient decision),06/20/2024(Deferred: Patient Refused),06/20/2024(Deferred: Patient Refused),04/11/2024(Deferred: Patient Refused),03/31/2024(Deferred: Allergy),07/01/2023(Deferred: Patient Refused),05/27/2023(Deferred: Patient Refused),04/22/2022(Deferred: [...] of 32.0 to 32.9 in adult 08/21/2020 Family History Medical History Relation Name Comments Asthma Father Diabetes Maternal Grandfather Diabetes Maternal Grandmother Diabetes Mother Pulmonary embolism Mother No Known Problems Sister Relation Name Status Comments Father Alive Maternal Grandfather Maternal Grandmother Mother Alive Sister Alive Social History Tobacco Use Types Packs/Day Years Used Date Smoking Tobacco: Every Day Cigarettes 0.5 11.7 Started: 06/14/2013 Smokeless Tobacco: Never Tobacco Cessation:Ready to Q uit: Not Asked; Counseling Given: Not Answered Alcohol Use Standard Drinks/Week Comments No 0 (1 standard drink = 0.6 oz pur e alcohol) AUDIT-C Answer Date Recorded Q1: How often do you have a drink containing alcohol? Never 02/12/2025 Q2: How many drinks containi ng alcohol do you have on a typical day when you are drinking? Patient does not drink Q3: How often do you have si x or more drinks on one occasion? Never 02/12/2025 PHQ-2 Answer Date Recorded PHQ-2 Total Score (If total score is 3 or more points, staff should administer the PHQ-9) 1 02/12/2025 Personal Safety Answer Date Recorded Getting School Help Needed Denies 07/01 Comments No Sex and Gender Information Value Date Recorded Sex Assigned at Not on file Legal Sex Female 9:40 AM SALES RESEARCH ANALYST Gender Identity Female 11/06/2020 8:35 AM [...] ANDREY CA Racquel Garcia MD Complications:None Delivery Location:[facility] ([facility]) 2019 Term 39w 2d 0h 01m 0h 01m 2.986 kg (6 lb 9.3 oz) M CS-LT ranv Epidur al N Livin g 6 7 CHRISTIANE ,BOYJ PASCUAL A Racquel Garcia MD Complications: Intolera nce Delivery Location:[facility] ([facility]) Last Filed Vital Signs Vital Sign Reading Time Taken Comments Blood Pressure 116/75 02/12/2025 10:03 AM CDT Pulse 80 02/12/2025 10:03 AM CDT Temperature 36.9 C (98.4 F) 02/12/2025 10:03 AM CDT Respiratory Rate 16 02/12/2025 10:03 AM CDT Oxygen Saturation 97% 02/12/2025 10:03 AM CDT Inhaled Oxygen Concentration - - Weight 83.9 kg (185 lb) 02/12/2025 10:03 AM CDT Height 159 cm (5' 2.6) 02/12/2025 10:03 AM CDT Body Mass Index 33.19 02/12/2025 10:03 AM CDT Plan of Treatment Health Maintenance Due Date Last Done Comments Hepatitis C Screening 1992 Hepatitis B Screening 01/02/2010 HPV Vaccines (1 - 3-dose SCD M series) 01/02/2019 Cervical Cancer Screening 07/09/2021 07/09/2020 Covid-19 Vaccine (2023-2 5 season) 2024 01/29/2022, 04/29/2021, 04/29/2021, Additional history exists Depression Screening 02/12/2026 02/12/2025, 01/16/2025, 12/08/2024, Additional history exists Regular Well Visit/Exam 18-64 02/12/2026, 08/25/2023, 04/29/2021 DTaP/Tdap/Td Vaccine (5 - Td or Tdap) 04/30/2030 04/30/2020, 05/10/2018, 05/08/2015, Additional history exists Influenza Vaccine Discontinued Pneumococcal vaccine <65 Discontinued Varicella Vaccines Discontinued Procedures Procedure Name Priority Date/Time Associated Diagnosis Comments VAGINITIS PANEL Routine 02/12/2025 10:48 AM CDT Vaginal discharge PAP AND HIGH RISK HPV, REFLEX TO GENOTYPING Routine 07/09/2020 from Last 3 Months or Most Recently Relevant to Health Maintenance Results * Vaginitis panel Vaginal (02/12/2025 10:48 AM CDT) Bacterial Vaginosis Not Detected Not Detected Comment:A negative result do es not preclude a possible infection. Results should be considered in conjunction with clinical presentation to determine the disease status. Jillian group Not Detected Not Detected [facility] Jillian glabrata/ krusei Not Detected Not Detected [facility] Trichomonas DNA Not Detected Not Detected [facility] Vaginal 02/12/2025 10:4 8 AM CDT 02/12/2025 10:16 PM CDT Narrative CARLOSNER - 02/12/2025 11:16 PM CDT The [employer] Xpert Xpress MVP test detects DNA targets from anaerobic bacteria associated with bacterial vaginosis, Jillian species associated with vulvovaginal candidiasis, and Trichomonas vaginalis by nucleic acid amplification testing (NAAT). Results should be interpreted in conjunction with other clinical data. This test cannot be used to assess therapeutic success or failure because target nucleic acids may persist following antimicrobial therapy. This test has been cleared by the [place] Food and Drug Administration to aid in the diagnosis of vaginal infections in symptomatic women ages 14 and older. The performance characteristics of this test have been verified by the [facility]. Rita Quigleyman [facility] MICROBIOLOGY - GENERAL O RDERABLES Final Result [facility] [id number] Department [place] [address] * Pap and High Risk HPV, reflex to Genotyping (07/09/2020) Thin prep 07/09/2020 Narrative Skyla Walker MA - 07/11/2020 RESULTS SENT TO [facility] TO BE PLACED IN CHART us Historical Provider LAB CYTOLOGY ORDERABLES F inal Result from Last 3 Months or Most Recently Relevant to Health Maintenance Insurance [facility] Advance Directives For more information, please contact: [phone] * Full Code (Latest Code Status on [...] in case of cardiopulmonary arrest Care Teams Pm Head Cook Relationship Specialty Start Date End Date Rita Spencer NP [address] [place] [address] PCP - General Family Medicine 07/07/22 Dejuan Garcia MD [address] [place] [address] Consulting Physician Obstetrics and Gynecology 03/02/22
--- OUTSIDE RECORDS SUMMARY | 2025-03-01 08:57 | XMS_ITS | Encounter Summary ---
Author Organization [facility] Healthcare Address [address] [place] [address] Care Team Providers Care Automotive Collision Repair Instructor Name Role Phone Dejuan Garcia MD Unavailable + [phone] Rita Spencer NP Primary Care Provider + [phone] Encounter Details Date Type Department Care Team (Late st Contact Info) Description 08/30/[address] 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 CONTROL OPERATOR Gender Identity Female 11/06/2020 8:35 AM CDT Sexual Orientation Straight 10/22/2021 2: 52 PM CDT documented as of this encounter Plan of Treatment Not on file documented as of this encounter Visit Diagnoses Not on filedocumented in this encounter Care Teams Automotive Collision Repair Instructor Relationship Specialty Start Date End Date Rita Spencer NP [address] [place] [address] PCP - General Family Medicine 07/07/22 Dejuan Garcia MD [address] [place] [address] Consulting Physician Obstetrics and Gynecology 03/02/22 documented as of this encounter
--- OUTSIDE RECORDS SUMMARY | 2025-03-01 08:57 | XMS_ITS | Encounter Summary ---
Author Organization [facility] Healthcare Address [address] [place] [address] Care Team Providers Care Surgical Instrument Mechanic Name Role Phone Dejuan Garcia MD Unavailable + [phone] Rita Spencer NP Primary Care Provider + [phone] Encounter Details Date Type Department Care Team (Late st Contact Info) Description 02/14/2025 Results Follow-Up [facility] Medical Group Primary Care at [address] [place] [address] Rita Spencer NP [address] [place] [address] [address] [place] [address] Vaginitis panel Vaginal Social History Tobacco Use Types Packs/Day Years [...] on file Legal Sex 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 documented in this encounter Plan of Treatment Not on file documented as of this encounter Visit Diagnoses Not on filedocumented in this encounter Care Teams Surgical Instrument Mechanic Relationship Specialty Start Date End Date Rita Spencer NP [address] [place] [address] PCP - General Family Medicine 07/07/22 Dejuan Garcia MD [address] [facility] [address] [place] [address] Consulting Physician Obstetrics and Gynecology 03/02/22 documented as of this encounter
--- NOTE | 2025-03-01 09:00 | ED.URI ---
HPI - URI/Sore Throat General Chief Complaint: Upper Respiratory Infection Stated Complaint: Congestion,Headache Time Seen by Provider: 03/01/25 09:00 Source: patient Mode of arrival: ambulatory Limitations: no limitations History of Present Illness HPI Narrative: 35-year-old female presents with complaint of sinus congestion and pressure, postnasal drainage, intermittent sore throat and fatigue for the past 2 weeks. Taking [id number] Tylenol cold and Sinus without relief of symptoms. Afebrile. No chest pain or shortness of breath. All systems reviewed and negative except as noted above. Related Data Home Medications ?Medication ?Instructions ?Recorded ?Confirmed ?Last Taken ?Type aspirin 81 mg chewable tablet 81 mg PO DAILY 10/04/23 06/01/24 Unknown History metoprolol succinate 25 mg 25 mg PO DAILY 10/04/23 06/01/24 Unknown History tablet,extended release 24 hr rosuvastatin 20 mg tablet 20 mg PO DAILY 02/28/24 06/01/24 Unknown History metformin 500 mg tablet,extended mg PO 03/01/25 Unknown History release 24 hr Allergies Allergy/AdvReac Type Severity Reaction Status Date / Time doxycycline Allergy Unknown Unknown Verified 03/01/25 09:15 lavender (Lavandula Allergy Hives Verified 03/01/25 09:15 angustifolia) Influenza Virus Vaccines AdvReac Severe Confusion Verified 03/01/25 09:15 pneumococcal vaccine AdvReac Unknown Confusion Verified 03/01/25 09:15 [facility] Past Medical History Medical History Myocardial infarction Anxiety Migraines Surgical History Surgical History History of H/O adenoidectomy History of tonsillectomy Family History Family History Mother Family history non-contributory Social History Social History Smoking packs per day: 1 Smoking cigarettes per day: 20.0 Smoking status: Current some day smoker Substance use: never Living arrangements: with family Gender identity (if verbalized by the patient): Female Sexual Orientation (if Verbalized by the Patient): Straight or Heterosexual Spiritual care concerns: No Comments At time of signature, agree with nursing past medical, surgical, social and family history. There is no relevant family history pertinent to the presenting complaint. Exam Narrative: GENERAL: This is a well-nourished, well-developed patient, in no apparent distress. HEAD: normocephalic, atraumatic. EYES: PERRL. Sclera clear/white. Vision is grossly intact. EARS: External ears normal, auditory canals clear and without drainage, TMs normal without perforation. Hearing grossly intact. NOSE: External nose normal with Purulent nasal drainage, erythema and swelling to both nares . Frontal maxillary sinus tenderness palpation THROAT: Mucous membranes moist, postnasal drainage with mild erythema. No significant swelling or exudates. NECK: Neck supple, non-tender without lymphadenopathy, masses or thyromegaly. CARDIOVASCULAR: Regular rate and rhythm without murmurs, gallops, or rubs. RESPIRATORY: Clear to auscultation. Breath sounds equal bilaterally. No wheezes, rales, or rhonchi. SKIN: warm, Dry, intact with no suspicious lesions or rash, good texture and turgor. NEURO: awake, alert, and oriented to person, place and time. There were no obvious focal neurologic abnormalities. EXTREMITIES: No joint tenderness, effusion, or edema noted. Course Course Level of Care: Express Care Visit Vital Signs Vital signs: Vital Signs Temperature 36.6 C 03/01/25 08:54 Pulse Rate 92 03/01/25 08:54 Respiratory Rate 16 03/01/25 08:54 Blood Pressure 124/75 03/01/25 08:54 Pulse Oximetry 99 03/01/25 08:54 Oxygen Delivery Room Air 03/01/25 08:54 Temperature 36.6 C 03/01/25 08:54 Pulse Rate 92 03/01/25 08:54 Respiratory Rate 16 03/01/25 08:54 Blood Pressure 124/75 03/01/25 08:54 Pulse Oximetry 99 03/01/25 08:54 Oxygen Delivery Room Air 03/01/25 08:54 reviewed MDM - URI/Sore Throat MDM Narrative Medical decision making narrative: will treat patient with antibiotic for bacterial sinusitis due to duration of symptoms and exam findings. Patient is well-appearing, nontoxic. Differential Diagnosis Differential diagnosis: Likely upper respiratory infection, sinusitis, viral infection and influenza Discharge Plan Discharge Clinical Impression: Acute bacterial sinusitis Patient Disposition: Home Condition: Stable Instructions: Antibiotic Form, Sinusitis (ED) Additional Instructions: take medications as prescribed. Take Tylenol every 6-8 hours as needed for pain. Purchase xkrv-[id number]-tdilain heart healthy Coricidin to treat sinus congestion and take as directed on packaging. Follow-up with your primary care physician if symptoms are not improving. Patient Language: Hungarian Prescriptions: New methylprednisolone [Medrol (Filiberto)] 4 mg tablets,dose pack See Rx Instructions PO .COMPLEX Qty: 21 0RF Rx Instructions: orally per package directions fluticasone propionate [Flonase Allergy Relief] 50 mcg/actuation spray,suspension 1 spray intranasal BID Qty: 16 0RF Rx Instructions: administer into each nostril amoxicillin-pot clavulanate 875-125 mg tablet 1 tablet PO Q12H 7 Days Qty: 14 0RF No Action aspirin 81 mg tablet,chewable 81 mg PO DAILY metoprolol succinate 25 mg tablet extended release 24 hr 25 mg PO DAILY rosuvastatin 20 mg tablet 20 mg PO DAILY metformin 500 mg tablet extended release 24 hr PO Follow-up/Referrals: PHYSICIAN NOT ON STAFF,NONSTAFF [Primary Care Provider] Time of Disposition: 09:20
== END 2025-03-01 09:25 | disposition home or self-care (01) ==
PROVIDERS: Emergency Provider Nurse Practitioner Family
DX: J01.90 Acute sinusitis, unspecified (principal); F17.210 Nicotine dependence, cigarettes, uncomplicated; I25.2 Old myocardial infarction; Z79.82 Long term (current) use of aspirin
CPT/HCPCS: 99213; G0463

== ENCOUNTER 2025-06-23 16:20 | Emergency (ER) | payer OTHER, SELFPAY ==
--- OUTSIDE RECORDS SUMMARY | 2025-06-23 16:24 | XMS_ITS | Clinical Summary ---
Author Organization [facility] Address [address] [place] [address] Care Team Providers Care Tax Adjuster Name Role Phone Dejuan Garcia MD Unavailable + [phone] Rita Spencer NP Primary Care Provider + [phone] Allergies Active Allergy Reactions Criticality Noted Date [...] or rash 30 g 11/05/19 24 Active nystatin powderIndications: Intertrigo Apply topically 4 (four) times a day 60 g 2 01/07/20 24 Active rosuvastatin (CRESTOR) 20 mg tabletIndications: History of NH (myocardial infarction) Take 1 tablet (20 mg [...] 500 mg 24 hr tabletIndications: Hidradenitis suppurativa TAKE 1 TABLET BY MOUTH EVERY DAY WITH BREAKFAST 90 tablet 04/16/20 25 Active albuterol HFA (PROVENTIL HFA,VENTOLIN HFA,PROAIR HFA) 90 mcg/actuation inhalerIndications :Acute viral bronchitis Inhale 2 puffs every 4 (four) hours as needed for wheezing 1 each 05/02/20 25 026 Active Active Problems Problem Noted Date Diagnosed [...] 5 days 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 -If not improving, may need to refer to GI -Please start taking probiotic 20-50 billion CFU daily long distance operator. This will help maintain the good bacteria that is in your gut. -Follow up in 1 month or sooner as needed Urinary frequency 09/15/2024 Assessment & Plan (09/15/2024 7:23 AM SPRINKLING TRUCK DRIVER): -Chronic, not at goal -Discussed/ordered labs -Abdominal and pelvic ultrasound and bilateral kidney ultrasound ordered today. -UA in office today negative for acute infection. Sent for culture -Follow up in 1 month or sooner as needed Proteinuria 09/15/2024 Assessment & Plan (09/15/2024 7:22 AM SPRINKLING TRUCK DRIVER): -Acute, new -Discussed/ordered labs -Abdominal and pelvic ultrasound and bilateral kidney ultrasound ordered today. -UA in office today negative for acute infection. Sent for culture -Follow up in 1 month or sooner as needed Flank pain 09/15/2024 Assessment & Plan (09/15/2024 7:21 AM SPRINKLING TRUCK DRIVER): -chronic, not at/near goal -Discussed/ordered labs -Abdominal and pelvic ultrasound and bilateral kidney ultrasound ordered today. -UA in office today negative for acute infection. Sent for culture -Follow up in 1 month or sooner as needed Itching 09/15/2024 Assessment & Plan (09/15/2024 7:22 AM SPRINKLING TRUCK DRIVER): -chronic, not at/near goal -Patient reports generalized itching and swelling feeling -Discussed/ordered labs -continue on Zyrtec 10 mg daily- advised to take on a regular basis -Referral sent to twister tender -Please start taking probiotic 20-50 billion CFU daily long distance operator. This will help maintain the good bacteria that is in your gut. -Keep scheduled appointment with electronics test engineer -Follow up in 1 month or sooner as needed Swelling 09/15/2024 Assessment & Plan (09/15/2024 7:22 AM SPRINKLING TRUCK DRIVER): -chronic, not at/near goal -Patient reports generalized itching and swelling feeling -Discussed/ordered labs -continue on Zyrtec 10 mg daily- advised to take on a regular basis -Referral sent to twister tender -Please start taking probiotic 20-50 billion CFU daily fpc. This will help maintain the good bacteria that is in your gut. -Keep scheduled appointment with electronics test engineer -Follow up in 1 month or sooner as needed Vaginal discharge 09/15/2024 Assessment & Plan (02/12/2025 1:23 PM CDT): -Chronic, improving, but not at goal -Repeat vaginitis swab completed today to ensure resolution of BV -Patient declines further STD testing -Follow up if not improving Orders: Vaginitis panel Vaginal; Future Assessment & Plan (09/15/2024 7:23 AM SPRINKLING TRUCK DRIVER): -Chronic, not at goal -STD screening ordered [...] in your mouth on an doris like [employer] Hand Measurements: A fist or cupped hand [...] in your mouth on an doris like [employer] Hand Measurements: A fist or cupped hand [...] cup. Assessment & Plan (09/15/2024 7:19 AM SPRINKLING TRUCK DRIVER): -chronic, not at/near goal goal BMI <30 Healthy, high-protein, lower carbohydrate, lower fat lifestyle and exercise for 150min/week recommended Recommend tracking everything you put in your mouth on an doris like [employer] Hand Measurements: A fist or cupped hand [...] in your mouth on an doris like [employer] Hand Measurements: A fist or cupped hand [...] in your mouth on an doris like [employer] Hand Measurements: A fist or cupped hand [...] in your mouth on an doris like [employer] Hand Measurements: A fist or cupped hand [...] -Discussed importance of well-balanced diet. History of NH (myocardial infarction) 08/10/2023 Assessment & Plan (02/12/2025 [...] cessation Assessment & Plan (08/25/2023 9:10 AM SPRINKLING TRUCK DRIVER): -occurred in July 2023 -continue on aspirin 81 mg daily, atorvastatin 40 mg nightly, clopidogrel 75 mg daily, and metoprolol XL 25 mg daily -continue follow up with Cardiology -advised patient go to ED if experiencing chest pain -encouraged smoking cessation Assessment & Plan (08/10/2023 12:24 PM SPRINKLING TRUCK DRIVER): Acute problem- this is a new problem-onset [...] improve her sleep -refer to Psychiatry at [facility] -advised patient to keep appointment with therapist Alcohol use 07/07/2022 Assessment & Plan (07/07/2022 3:38 PM SPRINKLING TRUCK DRIVER): -recommended that patient stop drinking alcohol -patient [...] on meds mid to late February until Thanks Come off of meds if possible during [...] counselor Assessment & Plan (08/25/2023 9:13 AM SPRINKLING TRUCK DRIVER): -chronic, stable- patient recently stopped her citalopram [...] with therapist. -referral sent to Psychiatry at [facility] for medication management and ADHD evaluation Assessment & Plan (07/07/2022 3:39 PM SPRINKLING TRUCK DRIVER): Patient reiterated no suicidal thoughts at this [...] bedtime Assessment & Plan (09/10/2021 4:07 PM SPRINKLING TRUCK DRIVER): Patient reiterated no suicidal thoughts at this [...] bedtime. Assessment & Plan (06/11/2021 4:13 PM SPRINKLING TRUCK DRIVER): Patient reiterated no suicidal thoughts at this [...] your phone. Examples would be headspace, calm, [id number], Personal Mike. Please work on this every [...] hot dogs, no MSG as found in mauritanian food, no more than 1/2 banana a [...] up Assessment & Plan (08/21/2020 10:31 AM SPRINKLING TRUCK DRIVER): HPI: Condition is stable patient having a [...] hot dogs, no MSG as found in mauritanian food, no more than 1/2 banana a [...] Please start taking probiotic 20-50billion CFU daily fpc. This will help maintain the good bacteria that is in your gut. Assessment & Plan (06/25/2020 4:46 PM SPRINKLING TRUCK DRIVER): Pt having headaches for 7 days a [...] hot dogs, no MSG as found in mauritanian food, no more than 1/2 banana a [...] counselor Assessment & Plan (08/25/2023 9:13 AM SPRINKLING TRUCK DRIVER): -chronic, stable- patient recently stopped her citalopram [...] with therapist. -referral sent to Psychiatry at [facility] for medication management and ADHD evaluation Assessment & Plan (07/07/2022 3:38 PM SPRINKLING TRUCK DRIVER): Patient reiterated no suicidal thoughts at this [...] bedtime Assessment & Plan (09/10/2021 4:08 PM SPRINKLING TRUCK DRIVER): Patient reiterated no suicidal thoughts at this [...] bedtime. Assessment & Plan (06/11/2021 4:13 PM SPRINKLING TRUCK DRIVER): Patient reiterated no suicidal thoughts at this [...] to help with anxiety. Today, have your [id number] watch your kids overnight. I need you to get some sleep. Please take two of the buspirone 10mg tablets about 8pm today with goal of going to bed at 9pm. This double dose is a one time dose. Starting tomorrow only take 1 tablet twice daily. Return in 2 wks. List of counselors given. Assessment & Plan (06/25/2020 4:08 PM SPRINKLING TRUCK DRIVER): She says she feels fine, then will start balling 20-30 times a day. 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 Dr. Garcia (TUBE MOUNTER) is treating this with Paroxetine 10mg daily. She feels normal on the medication. No longer having the crying episodes. Mild intermittent asthma without complication Assessment & Plan (02/12/2025 1:23 PM CDT): -chronic, stable -Discussed/ordered labs -continue on albuterol inhaler 2 puffs every 6 hours as needed Assessment & Plan (06/25/2020 4:10 PM SPRINKLING TRUCK DRIVER): HPI: Condition is stable A&P: Discussed/ordered labs, [...] needed Assessment & Plan (06/25/2020 5:08 PM SPRINKLING TRUCK DRIVER): Ibuprofen as needed Chronic bilateral thoracic back pain 06/25/2020 Assessment & Plan (06/25/2020 5:07 PM SPRINKLING TRUCK DRIVER): Ibuprofen as needed Scoliosis 06/25/2020 Assessment & Plan (06/25/2020 5:07 PM SPRINKLING TRUCK DRIVER): Ibuprofen as needed Tobacco use 06/25/2020 Assessment & Plan (02/12/2025 1:23 PM CDT): Patient aware of risks of tobacco use up to and including . Patient does not have interest in quitting at this time. Recommend smoking cessation. Assessment & Plan (08/25/2023 9:13 AM SPRINKLING TRUCK DRIVER): Patient aware of risks of tobacco use up to and including . Patient does not have interest in quitting at this time. Recommend smoking cessation. Assessment & Plan (08/10/2023 12:21 PM SPRINKLING TRUCK DRIVER): Chronic problem She was advised to quit smoking; the risks of continued tobacco use discussed. Assessment & Plan (10/22/2021 3:14 PM CDT): Pt was smoker - would benefit from quitting as its likely worsening URIs Assessment & Plan (09/10/2021 4:06 PM SPRINKLING TRUCK DRIVER): Patient states she has not smoked for [...] you. Assessment & Plan (08/21/2020 10:33 AM SPRINKLING TRUCK DRIVER): Decreased to 8 cig/day. She is trying to quit. 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 Caldera (opthalmologist) Was seeing neurologist but only went once-was told she was having migraines because she was too fat Assessment & Plan (08/21/2020 10:28 AM SPRINKLING TRUCK DRIVER): Pt sees Lorenza guzman once a year in February She has seen opthalmologist in the past and was sent to have MRI and neurology. She was not happy with the neurologist or the other head swamper she saw. She doesn't want to see another one. Assessment & Plan (06/25/2020 4:44 PM SPRINKLING TRUCK DRIVER): Pt sees Lorenza guzman once a year. She has seen head swamper in the past and was sent to have MRI and neurology, she was not happy with the neurologist and other head swamper she was. We will have pt f/u with ophthalmology again. 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 She has seen head swamper in the past and was sent to have MRI and neurology, she was not happy with the neurologist and other head swamper she was. We will have pt f/u with ophthalmology again. Resolved Problems Problem Noted Date Diagnosed Date Resolved Date Abnormal stress test 11/17/2024 025 depression 10/13/20242024 Hospital discharge follow-up 08/10/2023 08/25/2023 Assessment & Plan (08/10/2023 12:26 PM SPRINKLING TRUCK DRIVER): I personally reviewed H and P documentation, [...] activity unless she is cleared from her director of informatics. 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 Assessment & Plan (07/07/2022 7:40 AM SPRINKLING TRUCK DRIVER): HPI: Condition is not at/near goal goal BMI <30 A&P: Healthy, high-protein, lower carbohydrate, lower fat lifestyle and exercise for 150min/week recommended Recommend tracking everything you put in your mouth on an doris like [employer] Hand Measurements: A fist or cupped hand [...] in your mouth on an doris like [employer] Lower carb substitutions: Aldi carries a zero [...] in much longer they will become mushy [place] and/or coconut flour instead of regular flour [...] pork rinds For yogurt, try Two Good [place] yogurt Use Pinterest for recipe ideas. Type [...] in your mouth on an doris like [employer] Lower carb substitutions: Good carries a zero [...] in much longer they will become mushy [place] and/or coconut flour instead of regular flour [...] pork rinds For yogurt, try Two Good [place] yogurt Use [place] for recipe ideas. Type [...] in your mouth on an doris like [employer] or JJ [employer]ARMA Aldi carries a zero net carb bread [...] in much longer they will become mushy [place] and/or coconut flour instead of regular flour [...] pork rinds For yogurt, try Two Good [place] yogurt Use Pinterest for recipe ideas. Type in low carb... Assessment & Plan (10/22/2021 3:13 PM CDT): Not at goal - diet and lifestyle modifcations Assessment & Plan (09/10/2021 8:38 AM SPRINKLING TRUCK DRIVER): HPI: Condition is not at/near goal goal BMI <30 A&P: Healthy, high-protein, lower carbohydrate, lower fat lifestyle and exercise for 150min/week recommended Substitutions: Recommend tracking everything you put in your mouth on an doris like [employer] or [place] carries a zero net carb bread If [...] in much longer they will become mushy [place] and/or coconut flour instead of regular flour [...] pork rinds For yogurt, try Two Good [place] yogurt Use Pinterest for recipe ideas. Type in low carb... Assessment & Plan (06/11/2021 4:14 PM SPRINKLING TRUCK DRIVER): HPI: Condition is not at/near goal goal BMI <30 A&P: Healthy, high-protein, lower carbohydrate, lower fat lifestyle and exercise for 150min/week recommended Substitutions: Recommend tracking everything you put in your mouth on an doris like [employer] or [employer] carries a zero net carb bread If [...] in much longer they will become mushy [place] and/or coconut flour instead of regular flour [...] pork rinds For yogurt, try Two Good [place] yogurt Use [place] for recipe ideas. Type in low carb... Assessment & Plan (04/29/2021 12:21 PM CDT): HPI: Condition is not at/near goal goal BMI <30 A&P: Healthy, high-protein, lower carbohydrate, lower fat lifestyle and exercise for 150min/week recommended Substitutions: Recommend tracking everything you put in your mouth on an doris like [employer] or [employer] Aldi carries a zero net carb bread [...] in much longer they will become mushy [place] and/or coconut flour instead of regular flour [...] pork rinds For yogurt, try Two Good [place] yogurt Use Pinterest for recipe ideas. Type in low carb... Assessment & Plan (02/25/2021 2:31 PM CDT): HPI: Condition is improving, but not at goal goal BMI <30 A&P: Healthy, high-protein, lower carbohydrate, lower fat lifestyle and exercise for 150min/week recommended Substitutions: Recommend tracking everything you put in your mouth on an doris like [employer] or JJ [employer]ARMA Aldi carries a zero net carb bread [...] in much longer they will become mushy [place] and/or coconut flour instead of regular flour [...] pork rinds For yogurt, try Two Good [place] yogurt Use Pinterest for recipe ideas. Type in low carb... Assessment & Plan (01/07/2021 8:43 AM CDT): HPI: Condition is not at/near goal goal BMI <30 A&P: Healthy, high-protein, lower carbohydrate, lower fat lifestyle and exercise for 150min/week recommended Substitutions: Recommend tracking everything you put in your mouth on an doris like [employer] or JJ [employer]ARMA Aldi carries a zero net carb bread [...] in much longer they will become mushy [place] and/or coconut flour instead of regular flour [...] pork rinds For yogurt, try Two Good ku[place] yogurt Use Pinterest for recipe ideas. Type in low carb... Assessment & Plan (12/24/2020 4:04 PM CDT): HPI: Condition is not at/near goal goal BMI <30 A&P: Healthy, high-protein, lower carbohydrate, lower fat lifestyle and exercise for 150min/week recommended Substitutions: Recommend tracking everything you put in your mouth on an doris like [employer] or [place] carries a zero net carb bread If [...] in much longer they will become mushy [place] and/or coconut flour instead of regular flour [...] pork rinds For yogurt, try Two Good ku[place]i yogurt Use Pinterest for recipe ideas. Type in low carb... Assessment & Plan (11/26/2020 1:35 PM CDT): HPI: Condition is improving, but not at goal Going to the gym A&P: Healthy, low carbohydrate lifestyle and exercise for 150min/week recommended Substitutions: Recommend tracking everything you put in your mouth on an doris like [employer] or [employer] Aldi carries a zero net carb bread [...] in much longer they will become mushy [place] and/or coconut flour instead of regular flour [...] pork rinds For yogurt, try Two Good ku[place] yogurt Use [employer] for recipe ideas. Type in low carb... Assessment & Plan (10/03/2020 9:45 AM CDT): HPI: Condition is Not at goal A&P: Healthy, low carbohydrate lifestyle and exercise for 150min/week recommended Substitutions: Recommend tracking everything you put in your mouth on an doris like [employer] Aldi carries a zero net carb bread [...] in much longer they will become mushy [place] and/or coconut flour instead of regular flour [...] pork rinds For yogurt, try Two Good ku[place]i yogurt Use Pinterest for recipe ideas. Type in low carb... Assessment & Plan (09/19/2020 11:41 AM SPRINKLING TRUCK DRIVER): HPI: Condition is worsening A&P: Healthy, low carbohydrate lifestyle and exercise for 150min/week recommended Substitutions: Recommend tracking everything you put in your mouth on an doris like [employer] Aldi carries a zero net carb bread [...] in much longer they will become mushy [place] and/or coconut flour instead of regular flour [...] pork rinds For yogurt, try Two Good kuwaiti yogurt Use Pinterest for recipe ideas. Type in low carb... Assessment & Plan (08/21/2020 7:34 AM SPRINKLING TRUCK DRIVER): HPI: Condition is stable A&P: Healthy, low carbohydrate lifestyle and exercise for 150min/week recommended Substitutions: Recommend tracking everything you put in your mouth on an doris like [employer] Good carries a zero net carb bread [...] in much longer they will become mushy [place] and/or coconut flour instead of regular flour [...] pork rinds For yogurt, try Two Good kuwaiti yogurt Use Pinterest for recipe ideas. Type in low carb... Encounters Date Type Department Care Team Description 05/02/2025 9:15 AM CDT Office Visit [facility] [place] [address] [place] [address] Jessenia Rajput NP Acute non-recurrent frontal sinusitis (Primary Dx); Acute viral bronchitis from Last 3 Months Immunizations Immunization Administration [...] Date Smoking Tobacco: Every Day Cigarettes 0.5 12 Started: 06/14/2013 Smokeless Tobacco: Never Tobacco Cessation:Ready [...] on file Legal Sex Female 9:40 AM SPRINKLING TRUCK DRIVER Gender Identity Female 11/06/2020 8:35 AM CDT [...] N Livin g 9 9 CHRISTIANE ,GIRL Racquel Palm MD Complications:None Delivery [facility]) 2019 Term 39w 2d 0h 01m 0h 01m 2.986 kg (6 lb 9.3 oz) M CS-LT ranv Epidur al N Livin g 6 7 CHRISTIANE BOYRacquel Rivera MD Complications: Intolera nce Delivery Location:[facility]) Last Filed Vital Signs Vital Sign Reading Time Taken Comments Blood Pressure 122/72 05/02/2025 9:15 AM CDT Pulse 78 05/02/2025 9:15 AM CDT Temperature 36.9 C (98.4 F) 05/02/2025 9:15 AM CDT Respiratory Rate 18 05/02/2025 9:15 AM CDT Oxygen Saturation 98% 05/02/2025 9:15 AM CDT Inhaled Oxygen Concentration - - Weight 83 kg (183 lb) 05/02/2025 9:15 AM CDT Height 157.5 cm (5' 2) 05/02/2025 9:15 AM CDT Body Mass Index 33.47 05/02/2025 9:15 AM CDT Plan of Treatment Health Maintenance Due Date Last Done Comments Hepatitis C Screening 1992 Hepatitis B Screening 01/02/2010 HPV Vaccines (1 - 3-dose SCD M series) 01/02/2019 Cervical Cancer Screening 07/09/2021 07/09/2020 Covid-19 Vaccine (2 6 season) 2025 01/29/2022, 04/29/2021, 04/29/2021, Additional history exists Depression Screening 02/12/2026 02/12/2025, 01/16/2025, 12/08/2024, Additional history exists Regular Well Visit/Exam 18-64 02/12/2026, 08/25/2023, 04/29/2021 DTaP/Tdap/Td Vaccine (5 - Td or Tdap) 04/30/2030 04/30/2020, 05/10/2018, 05/08/2015, Additional history exists Influenza Vaccine Discontinued Pneumococcal vaccine <65 Discontinued Varicella Vaccines Discontinued Procedures Procedure Name Priority Date/Time Associated Diagnosis Comments PAP AND HIGH RISK HPV, REFLEX TO GENOTYPING Routine 07/09/2020 from Last 3 Months or Most Recently Relevant to Health Maintenance Results * Pap and High Risk HPV, reflex to Genotyping (07/09/2020) Thin prep 07/09/2020 Narrative Skyla Walker MA - 07/11/2020 RESULTS SENT TO SCANNING TO BE PLACED IN CHART us Historical Provider LAB CYTOLOGY ORDERABLES F inal Result from Last 3 Months or Most Recently Relevant to Health Maintenance Insurance [facility] Advance Directives For more information, please contact: [phone] * Full Code (Latest Code Status on [...] in case of cardiopulmonary arrest Care Teams Tax Adjuster Relationship Specialty Start Date End Date Rita Spencer NP [address] [place] [address] PCP - General Family Medicine 07/07/22 Dejuan Garcia MD [address] [place] [address] Consulting Physician Obstetrics and Gynecology 03/02/22
--- OUTSIDE RECORDS SUMMARY | 2025-06-23 16:24 | XMS_ITS | Clinical Summary ---
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 90 Tablet 3 01/16/20 25 Active docusate sodium (COLACE) 100 MG Capsule Take 1 Capsule by mouth 2 times daily as needed for Constipation - 1st line. 180 Capsule 3 01/16/20 25 Active Active Problems Problem Noted Date Diagnosed Date Coronary artery disease invo lving benton coronary artery of benton heart with angina pectoris 11/27/2024 Mixed hyperlipidemia 11/27/2024 Abnormal stress test 11/17/2024 Moderate obesity 08/04/[address] elevation myocardial infarction (S FABIOLA) 08/03/2023 Tobacco dependence 08/03/2023 Asthma 08/03/2023 Family History Medical History Relation Name Comments Asthma Father Diabetes Maternal Grandmother Diabetes Mother Heart Attack Mother No Known Problems Sister Relation Name Status Comments Father Alive Maternal Grandmother Mother Alive Sister Alive Social History Tobacco Use Types Packs/Day Years Used Date Smoking Tobacco: Every Day Cigarettes 1 12.9 Started: 07/12/2012 Smokeless Tobacco: Never Tobacco Cessation:Ready to Q uit: Not Asked; Counseling Given: Not Answered Alcohol Use Standard Drinks/Week Comments Yes 0 (1 standard drink = 0.6 oz pur e alcohol) 1 drink a month [facility] Utilities Answer Date Recorded In the past [...] often do you attend chur ch or catholic services? Never 08/03/2023 Do you belong to any clubs o r organizations such as sikhism groups, unions, fraternal or athletic groups, or [...] place to sleep or slept in a long-term (including now)? No 08/03/2023 Sexually Active Control [...] st Contact Info) Description 07/23/2025 10:30 AM CHARGE MASTER SPECIALIST Office Visit [facility] - [place] [address] [place] [address] Ev Tarango, DO [address] [address] Health Maintenance Due Date Last Done Comments Hepatitis C Virus (HCV) Screening 1992 Varicella Immunization (1 of 2 - 13+ 2-dose series) 01/02/2005 Hepatitis B Immunization (1 of 3 - 19+ 3-dose series) 01/02/2011 Pneumococcal Immunization Combined (1 of 2 - PCV) 01/02/2011 Pap Smear 01/02/2013 Cervical Cancer Screening (CCS) 01/02/2022 HPV/Cotest 01/02/2022 Influenza Immunization (#1) 2025 SARS-COV-2 Immunization ( season) 2025 01/29/2022, 04/29/2021, 04/08/2021 Respiratory Syncytial Virus (RSV) Immunization (Adult) (1 - 1-dose 75+ series) 01/02/2067 DTaP/Tdap/Td Immunization Discontinued 2019, 05/10/2018, 05/08/2015, Additional history exists TdaP Immunization Completed 04/30/2020, , 05/08/2015 Diabetes: Hemoglobin A1c Discontinued 12/05/2024, 07/13 Human Papillomavirus (HPV) Immunization (No Doses Required) Completed Meningococcal Immunization (ACWY) Aged Out No longer eligible based on patient's age to complete this topic Rotavirus Immunization Aged Out No lo nger eligible based on patient's age to complete this topic Medical Devices Implanted Type Area Poker Manager Device Identifier Shelf Expiration Date Model / Serial / Lot System Coronary Stent Xience Skypoint Everolimus Eluting 3.50 Mm X 23 Mm / Rapid-Exchange - [id number] Implanted:Qty: 1 on 08/03/2023 by Syeda Morris MD PhD at [facility] IMPLANT N/A: Coronary [employer] [id number] 08/23/2025 [id number] / / [id number] Device Clsr 70cm 6fr Angio-Seal Vip .035in Vasc Collagen Valuelink Gw Insertion carl Nicholeener - [id number] Implanted:Qty: 1 on 08/03/2023 by Syeda Morris MD PhD at [facility] IMPLANT N/A: Register My Info [id number] 12/29/2023 [id number] / / [id number] Procedures Procedure Name Priority Date/Time Associated Diagnosis Comments HEMOGLOBIN A1C W/ ESTIMATED GLUCOSE Routine 12/05/2024 7:43 AM CDT from Last 3 Months or Most Recently Relevant to Health Maintenance Results * Hemoglobin A1C w/ Estimated Glucose (12/05/2024 7:43 AM CDT) HGB-A1C 5.9 4.0 - 6.0 % 12/05/2024 8:05 AM CDT [facility] Est Average Glucose 122.6 mg/dL 12/05/2024 8:05 AM CDT [facility] Blood Venipuncture / Unknown 12/05/2024 7:43 AM CDT 12/05/2024 7:43 AM CDT Narrative [facility] - 12/05/2024 8:05 AM CDT HEMOGLOBIN A1C: DIABETIC PATIENTS: WELL-CONTROLLED: 6.2 - 7.0 INTERMEDIATE WELL-CONTROLLED: 7.0 - 9.0 POORLY-CONTROLLED: >9.0 Specimens containing greater than 5% of Hemoglobin F may result in lower than expected % HbA1C results. Emerita Ring MD CHEMISTRY ORDERABLES Final R esult [facility] [address] [place] [address] from Last 3 Months or Most Recently Relevant to Health Maintenance Insurance MEDICAID [employer] Advance Directives * Full Code (Latest Code Status on File) Date Activated Date Inactivated Comments 08/03/2023 3:43 PM 08/04/2023 5:06 PM CPR-Full Yordan atment: FULL ARREST: Attempt Resuscitation/CPR wit intubation and mechanical ventilation. PRE-ARREST: Use entire range of life support measures to stabilize the patient. Care Teams Adjustment Supervisor Relationship Specialty Start Date End Date Rita Spencer APRN, INSPECTOR MACHINE CUT GLASS [address] [facility] [address] [place] [address] PCP - General Advanced Practice Nurse 10/19/23 Marisela Marie APRN, [place] [address] [place] [address] Nurse Practitioner Cardiology 09/01/24 Ev Tarango DO [address] [facility] [address] [place] [address] Consulting Physician Cardiology 01/16/25
--- OUTSIDE RECORDS SUMMARY | 2025-06-23 16:24 | XMS_ITS | Data Portability ---
Author Organization [place] - [facility]- Address # [address] [facility] [place] [address] Assessment Encounter Date Assessment Date Assessment LastModified by Organization Details LastModified Time 02/06/2011 02/06/2011 21 yo female with TMJ inflammation. Discussed using NSAIDs aggressively over the next week until pain improves. 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 Medical Equipment None Reported. Allergies No known drug allergies Medications Not known to be on any medication Vitals Date Recorded Body weight Respiratory rate Body temperature Heart rate Systolic And Diastolic Provider Name and Address Organization Details Last Updated DateTime 1 99561.9 6394 g 20 /min 99 [degF] 90 /min 108/78 mm[Hg] Laila Ortiz [facility], 1 17:31:12 Social History None recorded. Functional [...] mcg/0.3 mL dose, lucy-sucrose 01/29/2022 completed Lexie alfaro, [place] - [facility], 01/29/2022 17:42:10 Past Encounters Encounter ID Performer Location Encounter Start Date Encounter Closed Date Diagnosis/Indication Diagnosis SNOMED-CT Code Diagnosis ICD10 Code Diagnosis IMO Codes Diagnosis Note [id number] Lorraine Ramos MD [facility]ED[facility]ATRIC [facility] [address] [place] [address],[address] [place] [address] 03/14/2010 17:37:34 03/14/2010 17:38:44 [id number] Patricia Chandra MD PEDIATRIC [facility] [address] [place] [address],[address] [place] [address] 02/06/2011 17:24:07 02/09/2011 15:58:59 [id number] KAREL SCHMITZ [facility]ATRIC [facility] [address] [place] [address],[address] [place] [address] 01/29/2022 16:37:43 01/30/2022 16:43:19 Active immunization [id number] Z23 Health Concerns Section Related Observation LastModified by Organization Detai ls LastModified Time None Recorded Concern Status LastModified by Organization Details LastModified Time None Recorded Advance Directives Directive None Recorded Payers Insurance Date Sequence Insurance Name Policy Number Policy Shipley Covered Member ID Shipley Member ID Guarantor Name 01/29/2022 1 [place] [employer] [place] [employer] Sapphire Paulson [id number] Sapphire Paulson 10/07/2011 SLIDING FEE SCHEDULE - DISCOUNT Sapphire Paulson 01/29/2022 1 *SELF PAY* Laureano Paulson 01/29/2022 1 [facility] - DOS ON OR AFTER 21 (MEDICAID REPLACEMENT - HMO) Sapphire Paulson [id number] Sapphire Paulson Notes Date Note Type Note Provider Name and Address Organization Details Recorded Time 02/06/2011 text/html EaracheReported by PatientHPIFor location, patient reportsleft. For modifying factors, patient reportshurts to chewbut reportsdoes not hurt to lie on, or pull on ear. For associated symptoms, patient reportshearing loss,nose/sinus problems, andringing in the earsbut reportsno discharge from the earsandno popping noise in the ears. For quality, patient reportsaching. For severity, patient reportscontinuous. For context, patient reportsno recent swimming/water in ear.5 weeks ago. Pain in L ear. Worse with chewing, talking, pain is in front of ear. No dental work. [place] like couldn't hear this morning. Had some dizziness after ear drops. InitializeSection( this.parentNode, 1 ); this.removeNode(true) HPI None recorded. Patricia Chandra MD [address] [place] [address] [address], [place], [address], [facility], 02/06/2011 18:14:27 OBGyn Episode No OBEpisode recorded.
--- OUTSIDE RECORDS SUMMARY | 2025-06-23 16:24 | XMS_ITS | Clinical Summary ---
Author Organization [facility] Address [address] [place] [address] Care Team Providers Care Brake Adjuster Name Role Phone None, Physician Primary Care Provider Unavailabl e Source Comments [facility],non-owned Affiliates and Associated Physician Practices is amultiple site organization consisting of ambulatory clinics and hospital sitesin [place], [place], [place] and [place]. This disclosure is being madepursuant to the Care Everywhere program and may not contain all information available regarding this patient. Last updated 18.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 Gender Identity Not on file Sexual Orientation [...] 01/16/2019 11:10 AM CDT Plan of Treatment Health Maintenance Due Date Last Done Comments HIV SCREENING 01/02/2007 HEPATITIS C SCREENING 12/29/2009 DTAP/TDAP/TD VACCINES (1 - Tdap) 01/02/2011 HEPATITIS B VACCINE (1 of 3 - 19+ 3-dose series) 01/02/2011 PNEUMOCOCCAL VACCINE (1 of 2 - PCV) 01/02/2011 PAP SMEAR 01/02/2013 HPV VACCINE (1 - 3-dose SCDM series) 01/02/2019 DEPRESSION SCREENING 07/12/2024 COVID-19 VACCINE (4 - 2024-2 6 season) 2025 01/29/2022, 04/29/2021, 04/08/2021 INFLUENZA VACCINE (#1) 2025 ZOSTER VACCINE (1 [...] patient's age to complete this topic Insurance [facility] Care Teams Brake Adjuster Relationship Specialty Start Date End Date None, Physician PCP - General 12/21/24
--- OUTSIDE RECORDS SUMMARY | 2025-06-23 16:24 | XMS_ITS | Encounter Summary ---
Author Organization [facility] Address [address] [place] [address] Care Team Providers Care Field Mechanical Meter Tester Name Role Phone Dejuan Garcia MD Unavailable + [phone] Rita Spencer NP Primary Care Provider + [phone] Encounter Details Date Type Department Care Team (Late st Contact Info) Description 08/30/2024 Telephone [facility] Group Primary Care at [address] [place] [address] Rita Spencer NP [address] [place] [address] [address] [place] [address] Social History Tobacco Use Types Packs/Day Years Used Date Smoking Tobacco: Every Day Cigarettes 0.5 12 Started: 06/14/2013 Smokeless Tobacco: Never Alcohol Use [...] on file 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 Gender Identity Female 11/06/2020 8:35 AM CDT Sexual Orientation Straight 10/22/2021 2: 52 PM CDT documented as of this encounter Plan of Treatment Not on file documented as of this encounter Visit Diagnoses Not on filedocumented in this encounter Care Teams Field Mechanical Meter Tester Relationship Specialty Start Date End Date Rita Spencer NP [address] [facility] [place] [address] PCP - General Family Medicine 07/07/22 Dejuan Garcia MD [address] [place] [address] Consulting Physician Obstetrics and Gynecology 03/02/22 documented as of this encounter
--- OUTSIDE RECORDS SUMMARY | 2025-06-23 16:25 | XMS_ITS ---
Author Organization [facility] Address [address] [facility] [place] [address] Phone Care Team Providers Care Aircraft Pilot Name Role Phone Rita Spencer APRN, DISC PAD PLATE FILLER Primary Care Provi lynne Marisela Marie APRN, DISC PAD PLATE FILLER Unavailable Ev Tarango DO Unavailable [facility] Chronic Condition Monitoring Status:Enrolled (Active) Program category:Remote Patient Monitoring Start date:08/09/2024 Enrollment date:08/09/2024 Related social drivers of health:Intimate Partner Violence, Social Connections, Tobacco Use, Financial Resource Strain, Depression, Stress, Food Insecurity Continued Care and Services Coordination
[2025-06-23 16:30] VITALS: BP 127/77; PULSE 88; RESP 20; TEMP 36.8; O2SAT 99
--- NOTE | 2025-06-23 17:19 | ED_ITS ---
HPI - URI/Sore Throat General Chief Complaint: Upper Respiratory Infection Stated Complaint: sinus pressure Time Seen by Provider: 06/23/25 16:39 Source: patient and RN notes reviewed Mode of arrival: ambulatory Limitations: no limitations History of Present Illness HPI Narrative: 35-year-old female patient presents today complaining of a 3.5 week history of nasal congestion, headache, severe sinus pressure, bilateral ear pain, slight cough that has been worsening since onset. He denies fever or shortness of breath. She has tried Tylenol Sinus without much relief. History of asthma but states this illness has not exacerbated her asthma and she has not needed to use her inhaler. Related Data Home Medications ?Medication ?Instructions ?Recorded ?Confirmed ?Last Taken ?Type aspirin 81 mg chewable tablet 81 mg PO DAILY 10/04/23 06/01/24 Unknown History metoprolol succinate 25 mg 25 mg PO DAILY 10/04/23 Unknown History tablet,extended release 24 hr rosuvastatin 20 mg tablet 20 mg PO DAILY 02/28/2405/13 Unknown History metformin 500 mg tablet,extended mg PO 03/01/25 Unkno wn History release 24 hr Allergies Allergy/AdvReac Type Severity Reaction Status Date / Time doxycycline Allergy Unknown Swelling Verified 06/23/25 17:00 of Lip/Tongue/Throat lavender (Lavandula Allergy Hives Verified 06/23/25 16:26 angustifolia) Influenza Virus Vaccines AdvReac Severe Confusion Verified 06/23/25 16:26 pneumococcal vaccine AdvReac Unknown Confusion Verified 06/23/25 16:26 amoxicillin AdvReac Vomiting Verified 06/23/25 17:00 PMFSH Past Medical History Medical History Myocardial infarction Anxiety Migraines Surgical History Surgical History History of H/O adenoidectomy History of tonsillectomy Family History Family History Mother Family history non-contributory Social History Social History (Reviewed 06/23/25 @ 17:22 by Irma L. Mihelcic, INTERNATIONAL BANK MANAGER, HEALTH OCCUPATIONS INSTRUCTOR) Smoking packs per day: 1 Smoking cigarettes per day: 20.0 Smoking status: Current some day smoker Substance use: never Living arrangements: with family Gender identity (if verbalized by the patient): Female Sexual Orientation (if Verbalized by the Patient): Straight or Heterosexual Spiritual care concerns: No Comments At time of signature, I have reviewed and agree with nursing past medical, surgical, social and family history unless otherwise noted. Please see nursing chart for further information. There is no relevant family history pertinent to the presenting complaint Exam Narrative: GENERAL: Mildly ill-appearing, well-nourished, and in no acute distress. HEAD: Normocephalic, atraumatic. EYES: EOMI. No redness or drainage. Conjunctivae normal. ENT: Mucous membranes pink and moist. Nares congested with rhinorrhea. TMs normal bilaterally. Throat normal. Uvula midline. Bilateral frontal and maxillary sinus tenderness. NECK: Normal AROM. Supple. No lymphadenopathy. CHEST: No respiratory distress. Clear to auscultation. HEART: Regular rate and rhythm. No murmur appreciated. EXTREMITIES: Normal range of motion. No edema. SKIN: Warm, dry, no rash. Capillary refill normal. Normal skin turgor. NEURO: No focal deficits. Alert and oriented x3. Gait steady. PSYCH: Normal affect. No signs of depression or anxiety. Course Course Level of Care: Express Care Visit Vital Signs Vital signs: Vital Signs Temperature 98.2 F 06/23/25 16:30 Pulse Rate 88 06/23/25 16:30 Respiratory Rate 20 06/23/25 16:30 Blood Pressure 127/77 06/23/25 16:30 Pulse Oximetry 99 06/23/25 16:30 Oxygen Delivery Room Air 06/23/25 16:30 Temperature 98.2 F 06/23/25 16:30 Pulse Rate 88 06/23/25 16:30 Respiratory Rate 20 06/23/25 16:30 Blood Pressure 127/77 06/23/25 16:30 Pulse Oximetry 99 06/23/25 16:30 Oxygen Delivery Room Air 06/23/25 16:30 Reviewed MDM MDM Narrative Medical decision making narrative: 35-year-old female patient presents today complaining of a 3.5 week history of nasal congestion, headache, severe sinus pressure, bilateral ear pain, slight cough that has been worsening since onset. He denies fever or shortness of breath. She has tried Tylenol Sinus without much relief. History of asthma but states this illness has not exacerbated her asthma and she has not needed to use her inhaler. Upon exam, patient is mildly ill appearing with nasal congestion and bilateral frontal and maxillary sinus tenderness to palpation. She will be treated with Suprax and prednisone. She is allergic to amoxicillin and doxycycline. Patient agrees with plan. Vital signs stable. Anticipatory guidance given. Differential Diagnosis Differential Diagnosis: URI, AOM, sinusitis, bronchitis pneumonia Critical Care Time Critical Care Time Critical Care Time: No Discharge Plan Discharge Clinical Impression: Bronchitis Sinusitis Qualifiers: Sinusitis location: unspecified location Chronicity: acute Recurrence: non- recurrent Qualified Code(s): J01.90 - Acute sinusitis, unspecified Patient Disposition: Home Condition: Stable Instructions: Antibiotic Form, Sinusitis (ED), Acute Bronchitis (ED) Additional Instructions: Please take the antibiotic and prednisone as directed. You may continue seas-dav-pcimzrt medication as needed for your symptoms as well. Follow-up with your PCP next week if symptoms are not improving. Go to the ER immediately if you develop shortness of breath or any other worsening symptoms. Patient Language: Icelandic Prescriptions: New cefixime [Suprax] 400 mg capsule 400 mg PO DAILY 7 Days Qty: 7 0RF prednisone 50 mg tablet 50 mg PO DAILY 5 Days Qty: 5 0RF No Action aspirin 81 mg tablet,chewable 81 mg PO DAILY metoprolol succinate 25 mg tablet extended release 24 hr 25 mg PO DAILY rosuvastatin 20 mg tablet 20 mg PO DAILY metformin 500 mg tablet extended release 24 hr PO fluticasone propionate [Flonase Allergy Relief] 50 mcg/actuation spray,suspension 1 spray intranasal BID Qty: 16 0RF Rx Instructions: administer into each nostril Follow-up/Referrals: PHYSICIAN NOT ON STAFF,NONSTAFF [Primary Care Provider] Time of Disposition: 17:05
== END 2025-06-23 17:12 | disposition home or self-care (01) ==
PROVIDERS: Emergency Provider Nurse Practitioner
DX: J40 Bronchitis, not specified as acute or chronic (principal); J01.90 Acute sinusitis, unspecified; J45.909 Unspecified asthma, uncomplicated; I25.2 Old myocardial infarction; F17.210 Nicotine dependence, cigarettes, uncomplicated
CPT/HCPCS: 99213; G0463